=== PATIENT | male | born 1980 | race Two or more races ===

== ENCOUNTER 2017-01-18 10:54 | Day surgery (SDC) | payer BC ==
[2017-01-12 14:58] VITALS: BMI 20.9
[~2017-01-18 10:54] MED LIST: LACTATED RINGERS 1,000 ML IV SCH
[2017-01-18 12:19] VITALS: TEMP 97.7
[2017-01-18] MEDS ORDERED: LIDOCAINE 1% 20 ML VIAL (10MG/ML) FOR IV START INTRADERMA ONE (12:26)
[2017-01-18] MEDS ORDERED: PROPOFOL 10 MG/ML 20 ML VIAL IV ONE (13:19)
[2017-01-18] MEDS ORDERED: LIDOCAINE 1% INJ 10MG/ML (20 ML MDV) ONE (13:19)
--- NOTE | 2017-01-18 13:43 | P.PCN ---
Date of Procedure: 01/18/17 Preoperative Diagnosis: Postoperative Diagnosis: Procedure(s) Performed: Brief history: Patient is a pleasant 36-year-old white male, scheduled for an elective upper endoscopy as well as colonoscopy as a part of evaluation of anemia and long- standing history of Crohn's disease. He was diagnosed with Crohn's disease several years ago and has 2 small bowel resections the last one about 10 years ago and since then has remain in clinical remission. Recently has been having several bowel movements daily with in 6-8 loose to watery in consistency but no blood in the stool. He was diagnosed with lower ex immediately DVT 10 days ago and has been started on Lovenox. Procedure performed: Esophagogastroduodenoscopy with biopsy Colonoscopy with biopsy Preoperative diagnosis: Iron deficiency anemia History of Crohn's disease. Anesthesia: MAC Procedure: After informed consent was obtained from the patient was brought into the endoscopy unit and IV sedation was administered by anesthesia under continuous monitoring. Initially upper endoscopy was done. The Olympus GF 160 video endoscope was inserted inserted into the mouth and esophagus intubated without any difficulty and was gradually advanced into the stomach and duodenum and carefully examined. The bulb and second part of the duodenum appeared normal. The scope was then withdrawn into the stomach adequately insufflated with air and upon careful examination the antrum and mild gastritis and biopsies were done from this area. The body, cardia and fundus appeared normal. The scope was then withdrawn into the esophagus. The GE junction was located at 40 cm to the incisors. It appeared regular with no erythema erosions or ulcerations. Rest of the esophagus appeared normal. Patient tolerated the procedure well. At this time the patient continued to remain sedation. Initial digital rectal examination was normal. Olympus CF 160 video colonoscope was then inserted into the rectum and gradually advanced to the right colon without any difficulty with the colonic anastomosis wasn't sure that appeared very narrowed and inflamed. Biopsies were done from the anastomosis. The transverse colon, descending colon, sigmoid colon and rectum appeared normal. Retroflexion was performed in the rectum and no lesions were noted. Random biopsies were done from ascending and descending colon to rule out active colitis. Patient tolerated the procedure well. Impression: 1.Upper endoscopy revealed mild antral gastritis but no evidence of esophagitis or peptic ulcer disease 2.Colonoscopy revealed narrowing of the ileal colic anastomosis and the right colon with multiple superficial ulcerations consistent with active disease. The colon appeared normal. Recommendations: Findings of this examination were discussed with the patient as well as her family. He was advised to follow with the biopsy results. He will resume Lovenox today and he will be seen in the office in 2 weeks. Implants: Indications for Procedure: Operative Findings: Description of Procedure:
[2017-01-18 14:30] VITALS: BP 94/58; PULSE 64; RESP 18
== END 2017-01-18 15:03 | disposition home or self-care (01) ==
LOC: ORWHC2ENDO 10:54
PROVIDERS: ATTEND Internal Medicine Gastroenterology
DX: K29.50 Unspecified chronic gastritis without bleeding (principal); K51.90 Ulcerative colitis, unspecified, without complications; Z98.0 Intestinal bypass and anastomosis status; I65.22 Occlusion and stenosis of left carotid artery; J45.909 Unspecified asthma, uncomplicated; F17.200 Nicotine dependence, unspecified, uncomplicated; Z86.711 Personal history of pulmonary embolism; Z79.899 Other long term (current) drug therapy
CPT/HCPCS: 88305; 88342; 45380; 43239; J2001; J2704

== ENCOUNTER 2018-07-30 16:17 | Emergency (ER) | payer BC, OTHER ==
--- NOTE | 2018-07-30 17:41 | ED ---
Extremity Problem HPI - General Chief complaint: Extremity Problem,Nontraumatic Stated complaint: Possible blood clot Time Seen by Provider: 07/30/18 16:33 Source: patient, RN notes reviewed, old records reviewed Mode of arrival: ambulatory Limitations: no limitations - History of Present Illness MD Complaint: extremity pain (L) -: days(s) Location: left, lower extremity History of Same: Yes -: Yes myalgia, Yes arthralgia Radiation: none Severity scale (1-10): 6 Quality: aching Consistency: constant Improves with: nothing Worsens with: nothing Associated Symptoms: myalgias - Related Data Home Medications Medication Instructions Recorded Confirmed Albuterol Inhaler [Ventolin Hfa 2 puff INHALATION RT-DAILY PRN 07/30/18 07/30/18 Inhaler] Apixaban [Eliquis] 5 mg PO BID 07/30/18 07/30/18 Buprenorphine HCl/Naloxone HCl 1 film SL BID 07/30/18 07/30/18 [Suboxone 8 mg-2 mg Sl Film] Ensure 1 can PO BID 07/30/18 07/30/18 traZODone HCL 150 mg PO HS 07/30/18 07/30/18 Allergies Allergy/AdvReac Type Severity Reaction Status Date / Time No Known Allergies Allergy Verified 07/30/18 16:37 Review of Systems ROS Statement: Those systems with pertinent positive or pertinent negative responses have been documented in the HPI. ROS Other: All systems not noted in ROS Statement are negative. Past Medical History Past Medical History: Asthma, Deep Vein Thrombosis (DVT), Pulmonary Embolus (PE) Additional Past Medical History / Comment(s): low BP, crohns, diarrhea, recent blood clot in left side of neck and PE ans is on lovenox ([facility] for 4-5 days) and got several blood transfusion while inpt History of Any Multi-Drug Resistant Organisms: None Reported Past Surgical History: Bowel Resection Additional Past Surgical History / Comment(s): colonoscopy, abscess lower left abdomen- drainage, port for TPN/later removed. Past Anesthesia/Blood Transfusion Reactions: No Reported Reaction Past Psychological History: No Psychological Hx Reported Smoking Status: Current every day smoker Past Alcohol Use History: None Reported Past Drug Use History: Heroin - Past Family History Mother Family Medical History: No Reported History General Exam Limitations: no limitations General appearance: alert, in no apparent distress Head exam: Present: atraumatic, normocephalic, normal inspection Eye exam: Present: normal appearance, PERRL, EOMI. Absent: scleral icterus, conjunctival injection, periorbital swelling ENT exam: Present: normal exam, mucous membranes moist Neck exam: Present: normal inspection. Absent: tenderness, meningismus, lymphadenopathy Respiratory exam: Present: normal lung sounds bilaterally. Absent: respiratory distress, wheezes, rales, rhonchi, stridor Cardiovascular Exam: Present: regular rate, normal rhythm, normal heart sounds. Absent: systolic murmur, diastolic murmur, rubs, gallop, clicks GI/Abdominal exam: Present: soft, normal bowel sounds. Absent: distended, tenderness, guarding, rebound, rigid Extremities exam: Present: normal inspection, full ROM, normal capillary refill, other (LLE pasin edema). Absent: tenderness, pedal edema, joint swelling, calf tenderness Back exam: Present: normal inspection Neurological exam: Present: alert, oriented X3, CN II-XII intact Psychiatric exam: Present: normal affect, normal mood Skin exam: Present: warm, dry, intact, normal color. Absent: rash Course Vital Signs 07/30/18 07/30/18 16:21 19:28 Temperature 98.8 F 97.8 F Pulse Rate 100 79 Respiratory 20 18 Rate Blood Pressure 97/57 99/60 O2 Sat by Pulse 100 97 Oximetry Medical Decision Making - Lab Data Result diagrams: 07/30/18 18:43 07/30/18 18:43 Lab Results 07/30/18 07/30/18 07/30/18 Range/Units 18:43 18:43 18:43 WBC 7.0 (3.8-10.6) k/uL RBC 4.25 L (4.30-5.90) m/uL Hgb 7.4 L (13.0-17.5) gm/dL Hct 27.7 L (39.0-53.0) % MCV 65.1 L (80.0-100.0) fL MCH 17.5 L (25.0-35.0) pg MCHC 26.9 L (31.0-37.0) g/dL RDW 18.4 H (11.5-15.5) % Plt Count 338 (150-450) k/uL Neutrophils % 62 % Lymphocytes % 19 % Monocytes % 8 % Eosinophils % 9 % Basophils % 1 % Neutrophils # 4.3 (1.3-7.7) k/uL Lymphocytes # 1.3 (1.0-4.8) k/uL Monocytes # 0.6 (0-1.0) k/uL Eosinophils # 0.6 (0-0.7) k/uL Basophils # 0.0 (0-0.2) k/uL Hypochromasia Marked Anisocytosis Slight Microcytosis Marked PT 11.3 (9.0-12.0) sec INR 1.1 (<1.2) APTT 25.9 (22.0-30.0) sec D-Dimer 1.74 H (<0.60) mg/L FEU Sodium 135 L (137-145) mmol/L Potassium 4.4 (3.5-5.1) mmol/L Chloride 102 (98-107) mmol/L Carbon Dioxide 29 (22-30) mmol/L Anion Gap 4 mmol/L BUN 9 (9-20) mg/dL Creatinine 0.74 (0.66-1.25) mg/dL Est GFR (CKD-EPI)AfAm >90 (>60 ml/min/1.73 sqM) Est GFR (CKD-EPI)NonAf >90 (>60 ml/min/1.73 sqM) Glucose 87 (74-99) mg/dL Calcium 8.0 L (8.4-10.2) mg/dL Magnesium 2.1 (1.6-2.3) mg/dL Total Bilirubin 0.3 (0.2-1.3) mg/dL AST 17 (17-59) U/L ALT 23 (21-72) U/L Alkaline Phosphatase 69 (38-126) U/L Total Protein 5.4 L (6.3-8.2) g/dL Albumin 2.7 L (3.5-5.0) g/dL Disposition Clinical Impression: Deep vein thrombosis of lower extremity, Right leg DVT Disposition: HOME SELF-CARE Condition: Good Instructions (If sedation given, give patient instructions): Deep Vein Thrombosis (ED) Is patient prescribed a controlled substance at d/c from ED?: No Referrals: Chuck Talbot MD [Primary Care Provider] - 1-2 days
--- NOTE | 2018-07-30 17:47 | US ---
EXAMINATION TYPE: US venous doppler duplex LE RT DATE OF EXAM: 07/30/2018 5:26 PM COMPARISON: NONE CLINICAL HISTORY: Pain. Hx of DVT in right leg x 1 year ago. Patient is currently not on blood thinn ers. Swelling and redness. SIDE PERFORMED: Right TECHNIQUE: The lower extremity deep venous system is examined utilizing real time linear array sonog luz with graded compression, doppler sonography and color-flow sonography. VESSELS IMAGED: External Iliac Vein (EIV) Common Femoral Vein Deep Femoral Vein Greater Saphenous Vein * Femoral Vein Popliteal Vein Small Saphenous Vein * Proximal Calf Veins (* superficial vessels) Right Leg: Appears positive for DVT from CFV to Proximal calf vein areas. Visibile internal echoes seen within, compressions deferred. Thready flow seen in CFV. Dual vein seen in mid Femoral vein, no vascular flow seen within both veins. Positive for SVT in small saphenous vein. IMPRESSION: The exam shows evidence of acute and chronic deep venous thrombosis in the right femoral vein and popliteal vein.
[2018-07-30] MEDS ORDERED: SODIUM CHLORIDE 0.9% 1,000 ML IV STA (18:21)
[2018-07-30] MEDS ORDERED: APIXABAN 5 MG TAB PO STA (18:23)
[2018-07-30 19:04] LABS: ALT 23 U/L (21-72); AST 17 U/L (17-59); Albumin 2.7 g/dL (3.5-5.0); Alkaline Phosphatase 69 U/L (38-126); Anion Gap 4 mmol/L; Blood Urea Nitrogen 9 mg/dL (9-20); Carbon Dioxide 29 mmol/L (22-30); Chloride 102 mmol/L (98-107); Glucose 87 mg/dL (74-99); Magnesium 2.1 mg/dL (1.6-2.3); Potassium 4.4 mmol/L (3.5-5.1); Sodium 135 mmol/L (137-145); Total Bilirubin 0.3 mg/dL (0.2-1.3); Total Protein 5.4 g/dL (6.3-8.2)
[2018-07-30 19:05] LABS: Anisocytosis Slight; Basophils % (A) 1 %; Eosinophils # (A) 0.6 k/uL (0-0.7); Eosinophils % (A) 9 %; HCT 27.7 % (39.0-53.0); HGB 7.4 gm/dL (13.0-17.5); Hypochromasia Marked; Lymphocytes # (A) 1.3 k/uL (1.0-4.8); Lymphocytes % (A) 19 %; MCH 17.5 pg (25.0-35.0); MCHC 26.9 g/dL (31.0-37.0); MCV 65.1 fL (80.0-100.0); Mean Platelet Volume 5.6; Microcytosis Marked; Monocytes # (A) 0.6 k/uL (0-1.0); Monocytes % (A) 8 %; Neutrophils # (A) 4.3 k/uL (1.3-7.7); Neutrophils % (A) 62 %; Platelet Count 338 k/uL (150-450); RBC 4.25 m/uL (4.30-5.90); RDW 18.4 % (11.5-15.5)
[2018-07-30 19:09] LABS: INR 1.1 (<1.2); Partial Thromboplastin Time 25.9 sec (22.0-30.0); Prothrombin Time 11.3 sec (9.0-12.0)
[2018-07-30 19:29] VITALS: BP 99/60; PULSE 79; RESP 18; TEMP 97.8
[2018-07-30 19:35] LABS: D-Dimer 1.74 mg/L FEU (<0.60)
== END 2018-07-30 19:29 | disposition home or self-care (01) ==
LOC: EC 16:17
DX: I82.411 Acute embolism and thrombosis of right femoral vein (principal); I82.431 Acute embolism and thrombosis of right popliteal vein; R60.0 Localized edema; M79.605 Pain in left leg; J45.909 Unspecified asthma, uncomplicated; F17.200 Nicotine dependence, unspecified, uncomplicated; Z79.01 Long term (current) use of anticoagulants; Z79.891 Long term (current) use of opiate analgesic; Z79.899 Other long term (current) drug therapy; Z86.711 Personal history of pulmonary embolism
CPT/HCPCS: 36415; 80053; 83735; 85025; 85379; 85610; 85730; 96360; 99284

== ENCOUNTER 2018-10-31 12:42 | Inpatient (IN) | payer OTHER ==
--- NOTE | 2018-10-31 13:30 | ED ---
General Adult HPI - General Chief complaint: Recheck/Abnormal Lab/Rx Stated complaint: Edema Time Seen by Provider: 10/31/18 12:59 Source: patient, RN notes reviewed Mode of arrival: ambulatory Limitations: no limitations - History of Present Illness Initial comments: 38-year-old male presents emergency Department chief complaint of leg and abdominal swelling. Patient states it started last week or so states he returned to work and this is when it started. Patient states she's had swelling in the past though that has been related to prior DVT and his arm. Patient states he has History of Crohn's disease with associated anemia. Patient denies any prior liver disease. He does admit to IV drug use in which she's used on and off he was and recent treatment and states that his been tested for hepatitis which are negative. Patient denies any prior liver disease. He does admit to some shortness of breath with no associated fevers or chills. Patient denies any prior renal disease, recent transfusion, congestive heart failure or any known cardiac disease - Related Data Home Medications Medication Instructions Recorded Confirmed Albuterol Inhaler [Ventolin Hfa 2 puff INHALATION RT-DAILY PRN 07/30/18 10/31/18 Inhaler] Apixaban [Eliquis] 5 mg PO BID 07/30/18 10/31/18 Buprenorphine HCl/Naloxone HCl 1 film SL BID 07/30/18 10/31/18 [Suboxone 8 mg-2 mg Sl Film] traZODone HCL 150 mg PO HS 07/30/18 10/31/18 Cbd Oil 500 mg SL BID 10/31/18 10/31/18 Allergies Allergy/AdvReac Type Severity Reaction Status Date / Time No Known Allergies Allergy Verified 10/31/18 13:04 Review of Systems ROS Statement: Those systems with pertinent positive or pertinent negative responses have been documented in the HPI. ROS Other: All systems not noted in ROS Statement are negative. Past Medical History Past Medical History: Asthma, Deep Vein Thrombosis (DVT), Pulmonary Embolus (PE) Additional Past Medical History / Comment(s): low BP, crohns, diarrhea, recent blood clot in left side of neck and PE ans is on lovenox ([facility] for 4-5 days) and got several blood transfusion while inpt History of Any Multi-Drug Resistant Organisms: None Reported Past Surgical History: Bowel Resection Additional Past Surgical History / Comment(s): colonoscopy, abscess lower left abdomen- drainage, port for TPN/later removed. Past Anesthesia/Blood Transfusion Reactions: No Reported Reaction Past Psychological History: No Psychological Hx Reported Smoking Status: Current every day smoker Past Alcohol Use History: None Reported Past Drug Use History: Heroin - Past Family History Mother Family Medical History: No Reported History General Exam Limitations: no limitations General appearance: alert, in no apparent distress Head exam: Present: atraumatic, normocephalic, normal inspection Eye exam: Present: normal appearance, PERRL, EOMI. Absent: scleral icterus, conjunctival injection, periorbital swelling ENT exam: Present: normal exam, normal oropharynx, mucous membranes moist Neck exam: Present: normal inspection, full ROM. Absent: tenderness, meningismus, lymphadenopathy Respiratory exam: Present: rales. Absent: normal lung sounds bilaterally, respiratory distress, wheezes, rhonchi, stridor Cardiovascular Exam: Present: regular rate, normal rhythm, normal heart sounds. Absent: systolic murmur, diastolic murmur, rubs, gallop, clicks GI/Abdominal exam: Present: soft, distended, tenderness, normal bowel sounds. Absent: guarding, rebound, rigid Extremities exam: Present: pedal edema (Extensive pitting edema lower extremities 3+) Neurological exam: Present: alert, oriented X3, CN II-XII intact, reflexes normal. Absent: motor sensory deficit Skin exam: Present: warm, dry, intact, normal color. Absent: rash Course Vital Signs 10/31/18 10/31/18 12:48 13:40 Temperature 99.2 F Pulse Rate 92 Respiratory 18 18 Rate Blood Pressure 95/59 O2 Sat by Pulse 98 Oximetry Medical Decision Making - Lab Data Result diagrams: 10/31/18 13:30 10/31/18 13:30 Lab Results 10/31/18 10/31/18 10/31/18 Range/Units 13:30 13:30 13:30 WBC 5.7 (3.8-10.6) k/uL RBC 3.84 L (4.30-5.90) m/uL Hgb 6.4 L* (13.0-17.5) gm/dL Hct 24.8 L (39.0-53.0) % MCV 64.6 L (80.0-100.0) fL MCH 16.6 L (25.0-35.0) pg MCHC 25.8 L (31.0-37.0) g/dL RDW 19.2 H (11.5-15.5) % Plt Count 411 (150-450) k/uL Neutrophils % 82 % Lymphocytes % 10 % Monocytes % 5 % Eosinophils % 1 % Basophils % 1 % Neutrophils # 4.7 (1.3-7.7) k/uL Lymphocytes # 0.6 L (1.0-4.8) k/uL Monocytes # 0.3 (0-1.0) k/uL Eosinophils # 0.0 (0-0.7) k/uL Basophils # 0.0 (0-0.2) k/uL Hypochromasia Marked Poikilocytosis Slight Anisocytosis Slight Microcytosis Marked PT (9.0-12.0) sec INR (<1.2) APTT (22.0-30.0) sec Sodium 134 L (137-145) mmol/L Potassium 4.5 (3.5-5.1) mmol/L Chloride 101 (98-107) mmol/L Carbon Dioxide 30 (22-30) mmol/L Anion Gap 3 mmol/L BUN 10 (9-20) mg/dL Creatinine 0.77 (0.66-1.25) mg/dL Est GFR (CKD-EPI)AfAm >90 (>60 ml/min/1.73 sqM) Est GFR (CKD-EPI)NonAf >90 (>60 ml/min/1.73 sqM) Glucose 97 (74-99) mg/dL Plasma Lactic Acid Georges 0.9 (0.7-2.0) mmol/L Calcium 7.6 L (8.4-10.2) mg/dL Magnesium 2.2 (1.6-2.3) mg/dL Total Bilirubin 0.5 (0.2-1.3) mg/dL AST 26 (17-59) U/L ALT 23 (21-72) U/L Alkaline Phosphatase 82 (38-126) U/L Creatine Kinase 46 L (55-170) U/L NT-Pro-B Natriuret Pep pg/mL Total Protein 5.3 L (6.3-8.2) g/dL Albumin 2.3 L (3.5-5.0) g/dL Amylase 40 (30-110) U/L Lipase 40 (23-300) U/L Hepatitis A IgM Ab 10/31/18 10/31/18 10/31/18 Range/Units 13:30 13:30 13:45 WBC (3.8-10.6) k/uL RBC (4.30-5.90) m/uL Hgb (13.0-17.5) gm/dL Hct (39.0-53.0) % MCV (80.0-100.0) fL MCH (25.0-35.0) pg MCHC (31.0-37.0) g/dL RDW (11.5-15.5) % Plt Count (150-450) k/uL Neutrophils % % Lymphocytes % % Monocytes % % Eosinophils % % Basophils % % Neutrophils # (1.3-7.7) k/uL Lymphocytes # (1.0-4.8) k/uL Monocytes # (0-1.0) k/uL Eosinophils # (0-0.7) k/uL Basophils # (0-0.2) k/uL Hypochromasia Poikilocytosis Anisocytosis Microcytosis PT 12.0 (9.0-12.0) sec INR 1.2 H (<1.2) APTT 25.2 (22.0-30.0) sec Sodium (137-145) mmol/L Potassium (3.5-5.1) mmol/L Chloride (98-107) mmol/L Carbon Dioxide (22-30) mmol/L Anion Gap mmol/L BUN (9-20) mg/dL Creatinine (0.66-1.25) mg/dL Est GFR (CKD-EPI)AfAm (>60 ml/min/1.73 sqM) Est GFR (CKD-EPI)NonAf (>60 ml/min/1.73 sqM) Glucose (74-99) mg/dL Plasma Lactic Acid Georges (0.7-2.0) mmol/L Calcium (8.4-10.2) mg/dL Magnesium (1.6-2.3) mg/dL Total Bilirubin (0.2-1.3) mg/dL AST (17-59) U/L ALT (21-72) U/L Alkaline Phosphatase (38-126) U/L Creatine Kinase (55-170) U/L NT-Pro-B Natriuret Pep 231 pg/mL Total Protein (6.3-8.2) g/dL Albumin (3.5-5.0) g/dL Amylase (30-110) U/L Lipase (23-300) U/L Hepatitis A IgM Ab NEGATIVE Critical Care Time Critical Care Time: Yes Total Critical Care Time: 35 Critical Care Time: Total 35 minutes of critical care time were used to evaluate the patient, reviewed past medical history, discussed patient's history with family, physical exam and ordering of labs which included CBC, CMP, BMP, hepatitis panel, urinalysis and chest x-ray. Patient's found to have anemia of 6.4, 1 unit of blood was ordered. Patient has extensive swelling concerns for underlying malnutrition, hepatitis or congestive heart failure. Patient will be admitted for further evaluation. Disposition Clinical Impression: Anemia, Crohns disease, Edema, Ascites Disposition: ADMITTED IP TO THIS HOSP Condition: Fair Referrals: Chuck Talbot MD [Primary Care Provider] - 1-2 days
[2018-10-31 13:51] LABS: Anisocytosis Slight; Basophils % (A) 1 %; Eosinophils % (A) 1 %; HCT 24.8 % (39.0-53.0); Hypochromasia Marked; Lymphocytes # (A) 0.6 k/uL (1.0-4.8); Lymphocytes % (A) 10 %; MCH 16.6 pg (25.0-35.0); MCHC 25.8 g/dL (31.0-37.0); MCV 64.6 fL (80.0-100.0); Mean Platelet Volume 6.6; Microcytosis Marked; Monocytes # (A) 0.3 k/uL (0-1.0); Monocytes % (A) 5 %; Neutrophils # (A) 4.7 k/uL (1.3-7.7); Neutrophils % (A) 82 %; Platelet Count 411 k/uL (150-450); Poikilocytosis Slight; RBC 3.84 m/uL (4.30-5.90); RDW 19.2 % (11.5-15.5); WBC 5.7 k/uL (3.8-10.6)
[2018-10-31 13:53] LABS: HGB 6.4 gm/dL (13.0-17.5)
[2018-10-31 13:58] LABS: ALT 23 U/L (21-72); AST 26 U/L (17-59); African American GFR (CKD) >90 (>60 ml/min/1.73 sqM); Albumin 2.3 g/dL (3.5-5.0); Alkaline Phosphatase 82 U/L (38-126); Amylase 40 U/L (30-110); Anion Gap 3 mmol/L; Blood Urea Nitrogen 10 mg/dL (9-20); Calcium 7.6 mg/dL (8.4-10.2); Carbon Dioxide 30 mmol/L (22-30); Chloride 101 mmol/L (98-107); Creatine Kinase 46 U/L (55-170); Glucose 97 mg/dL (74-99); INR 1.2 (<1.2); Lipase 40 U/L (23-300); Magnesium 2.2 mg/dL (1.6-2.3); Partial Thromboplastin Time 25.2 sec (22.0-30.0); Potassium 4.5 mmol/L (3.5-5.1); Sodium 134 mmol/L (137-145); Total Bilirubin 0.5 mg/dL (0.2-1.3); Total Protein 5.3 g/dL (6.3-8.2)
--- NOTE | 2018-10-31 14:05 | XR ---
EXAMINATION TYPE: XR chest 2V DATE OF EXAM: 10/31/2018 COMPARISON: NONE TECHNIQUE: PA and lateral views submitted. HISTORY: Shortness of breath FINDINGS: The lungs are clear and there is no pneumothorax, pleural effusion, or focal pneumonia. Subsegmenta l linear consolidation likely in the basis of scar or atelectasis. No overt failure. Heart size gold l. IMPRESSION: 1. Bibasilar subsegmental consolidation likely in the basis of atelectasis or scar rather than pneumo corwin correlate clinically for confirmation.
[2018-10-31 14:33] LABS: Hepatitis A AB IgM Index 0.02; Hepatitis A Antibody IgM NEGATIVE
[2018-10-31] MEDS ORDERED: PANTOPRAZOLE 40 MG/10 ML VIAL IVP STA (14:44)
[2018-10-31] MEDS ORDERED: ONDANSETRON 4 MG/2 ML VIAL IVP PRN (14:59)
[2018-10-31] MEDS ORDERED: ACETAMINOPHEN TAB 325 MG TAB PO PRN (14:59)
[2018-10-31] MEDS ORDERED: NALOXONE 0.4 MG/ML 1 ML VIAL IV PRN (14:59)
--- NOTE | 2018-10-31 15:31 | CT ---
EXAMINATION TYPE: CT abdomen pelvis wo con DATE OF EXAM: 10/31/2018 COMPARISON: None HISTORY: 38-year-old male Swelling to abdomen and legs x couple weeks. CT DLP: 415.4 mGycm. Automated exposure control for dose reduction was used. TECHNIQUE: Contiguous axial scanning of the abdomen and pelvis without IV contrast. Coronal and sagit christnia reconstructions performed. FINDINGS: Heart normal size without pericardial effusion. Low density of the blood pool suggests underlying ane arpit. Prominent bands of atelectasis in the visualized lower lungs without pleural effusion. There is moderate to large abdominal pelvic ascites and diffuse anasarca-type change. There may be sl ightly nodular hepatic contour. No abnormal gallbladder distention. Exam limitations due to diffuse anasarca change, ascites, and lack of contrast. Suboptimal assessment of the adrenal glands. No gross abnormality of the pancreas. Spleen enlarged at 16.0 cm. Kidneys show no gross abnormality. No dilated small bowel or free air seen. There is evidence of prior bowel resection and anastomosis in the right lower quadrant. Circumferenti al wall thickening along the hepatic flecture, axial imaging before. Additional moderate circumferent ial wall thickening of the mid to distal sigmoid. Bladder nondistended. Bones: No osseous destructive process. Degenerative disc disease L5-S1. IMPRESSION: 1. Severe diffuse anasarca type changes as well as moderate to large abdominopelvic ascites. Further clinical evaluation and workup is recommended. 2. Possible slight contour nodularity of the liver raises the possibility of underlying cirrhosis. 3. Splenomegaly at 16.0 cm. 4. Segments of moderate circumferential wall thickening of the colon such as at the hepatic flexure and mid to distal sigmoid. In the setting of liver disease, this could be reactive to hypoalbuminemia . Otherwise, nonspecific colitis is suggested. Clinically correlate. 5. Low density of the blood pool can be seen in the setting of clinically significant anemia.
--- NOTE | 2018-10-31 15:33 | P.HPIM ---
History of Present Illness H&P Date: 10/31/18 Chief Complaint: Swelling abdominal distention diarrhea The patient is a 38-year-old male with a past medical history of thromboembolic disease, IV drug abuse with heroin, Crohn's disease reportedly previously in remission who presents to the ER via private vehicle with chief complaint of worsening swelling . Apparently the patient has been having gradual progressive worsening swelling over the last 2 weeks, he reports the swelling is worse in his lower extremities and abdomen. Over the last 3 days the patient has been increasingly fatigued and began having several episodes of bloody diarrhea over the last 3 days, denies any subjective fevers chills or night sweats. He reports poor appetite secondary to his abdominal distention. He denies any nausea and vomiting, denies any chest pain but reports some shortness of breath due to his abdominal distention. in the ED the patient had a comprehensive workup hemoglobin and hematocrit was 6.4 and 24.8 respectively, INR is 1.2 . Serum sodium 134, NT proBNP to 30 total protein 5.3, albumin 2.3 . Chest x-ray showed bibasilar subsegmental consolidation likely atelectasis or scar. Patient was noted to be hemodynamically stable and recommended for admission for possible GI bleed. Review of Systems Pertinent positives per HPI, all other review of systems are otherwise negative Past Medical History Past Medical History: Asthma, Deep Vein Thrombosis (DVT), Pulmonary Embolus (PE) Additional Past Medical History / Comment(s): low BP, crohns, diarrhea, recent blood clot in left side of neck and PE ans is on lovenox ([facility] for 4-5 days) and got several blood transfusion while inpt History of Any Multi-Drug Resistant Organisms: None Reported Past Surgical History: Bowel Resection Additional Past Surgical History / Comment(s): colonoscopy, abscess lower left abdomen- drainage, port for TPN/later removed. Past Anesthesia/Blood Transfusion Reactions: No Reported Reaction Past Psychological History: No Psychological Hx Reported Smoking Status: Current every day smoker Past Alcohol Use History: None Reported Past Drug Use History: Heroin - Past Family History Mother Family Medical History: No Reported History Medications and Allergies Home Medications Medication Instructions Recorded Confirmed Type Albuterol Inhaler [Ventolin Hfa 2 puff INHALATION RT-DAILY PRN 07/30/18 10/31/18 History Inhaler] Apixaban [Eliquis] 5 mg PO BID 07/30/18 10/31/18 History Buprenorphine HCl/Naloxone HCl 1 film SL BID 07/30/18 10/31/18 History [Suboxone 8 mg-2 mg Sl Film] traZODone HCL 150 mg PO HS 07/30/18 10/31/18 History Cbd Oil 500 mg SL BID 10/31/18 10/31/18 History Allergies Allergy/AdvReac Type Severity Reaction Status Date / Time No Known Allergies Allergy Verified 10/31/18 13:04 Physical Exam Vitals: Vital Signs Temp Pulse Resp BP Pulse Ox 10/31/18 13:40 18 10/31/18 12:48 99.2 F 92 18 95/59 98 Intake and Output 10/31/18 10/31/18 10/31/18 06:59 14:59 22:59 Other: Weight 65.136 kg Constitutional: No acute distress, conversant, pleasant, emaciated looking Eyes: Anicteric sclerae, moist conjunctiva, no lid-lag, PERRLA ENMT: NC/AT,Oropharynx clear, no erythema, exudates Neck:Supple, FROM, no masses, or JVD, No carotid bruits; No thyromegaly Lungs: Clear to auscultation, Clear to percussion, Normal respiratory effort, no accessory muscle use Cardiovascular: Heart regular in rate and rhythm, No murmurs, gallops, or rubs no peripheral edema Abdominal: Soft Nontender, moderately distended with, no guarding, no rebound or rigidity, Normoactive bowel sounds, No palpable mass, umbilical hernia noted Skin: Normal temperature, tone, texture, turgor, No induration No subcutaneous nodules, No rash, lesions, No ulcers Extremities:No digital cyanosis No clubbing, Pedal pulses intact and symm etrical Radial pulses intact and symmetrical Normal gait and station, No calf tenderness Psychiatric: Alert and oriented to person, place and time, Appropriate affect Intact judgement Neuro: Muscles Strength 5/5 in all 4 extremities, Sensation to light touch grossly present throughout, Cranial nerves II-XII grossly intact. No focal sensory deficits Results CBC & Chem 7: 10/31/18 13:30 10/31/18 13:30 Labs: Abnormal Lab Results - Last 24 Hours (Table) 10/31/18 10/31/18 10/31/18 Range/Units 13:30 13:30 13:30 RBC 3.84 L (4.30-5.90) m/uL Hgb 6.4 L* (13.0-17.5) gm/dL Hct 24.8 L (39.0-53.0) % MCV 64.6 L (80.0-100.0) fL MCH 16.6 L (25.0-35.0) pg MCHC 25.8 L (31.0-37.0) g/dL RDW 19.2 H (11.5-15.5) % Lymphocytes # 0.6 L (1.0-4.8) k/uL INR 1.2 H (<1.2) Sodium 134 L (137-145) mmol/L Calcium 7.6 L (8.4-10.2) mg/dL Creatine Kinase 46 L (55-170) U/L Total Protein 5.3 L (6.3-8.2) g/dL Albumin 2.3 L (3.5-5.0) g/dL Crossmatch 10/31/18 Range/Units 13:57 RBC (4.30-5.90) m/uL Hgb (13.0-17.5) gm/dL Hct (39.0-53.0) % MCV (80.0-100.0) fL MCH (25.0-35.0) pg MCHC (31.0-37.0) g/dL RDW (11.5-15.5) % Lymphocytes # (1.0-4.8) k/uL INR (<1.2) Sodium (137-145) mmol/L Calcium (8.4-10.2) mg/dL Creatine Kinase (55-170) U/L Total Protein (6.3-8.2) g/dL Albumin (3.5-5.0) g/dL Crossmatch See Detail Assessment and Plan (1) Microcytic anemia Current Visit: Yes Status: Acute Code(s): D50.9 - IRON DEFICIENCY ANEMIA, UNSPECIFIED SNOMED Code(s): 403070984 (2) Abdominal distention Current Visit: Yes Status: Acute Code(s): R14.0 - ABDOMINAL DISTENSION (GASEOUS) SNOMED Code(s): 70426922 (3) Crohns disease Current Visit: Yes Status: Acute Code(s): K50.90 - CROHN'S DISEASE, UNSPECIFIED, WITHOUT COMPLICATIONS SNOMED Code(s): 45383127 (4) Moderate protein-energy malnutrition Current Visit: Yes Status: Acute Code(s): E44.0 - MODERATE PROTEIN-CALORIE MALNUTRITION SNOMED Code(s): 533500808 (5) History of intravenous drug abuse Current Visit: Yes Status: Acute Code(s): F19.11 - OTHER PSYCHOACTIVE SUBSTANCE ABUSE, IN REMISSION SNOMED Code(s): 06536997663294054 Plan: The patient is admitted anticipated greater than 2 midnight stay with severe microcytic anemia presumably secondary to blood loss with concern for possible Crohn's flare after the patient presented with abdominal distention and bloody diarrhea. He'll be typed and crossed and transfused a unit of packed RBCs, CRP and a CT abdomen and pelvis have been ordered. If there is any indication of a flare we'll start the patient on systemic steroids pending GI consultation. UDS will be ordered. We'll continue his PPI therapy and also check iron studies. CODE STATUS: Full code Anticipated discharge: 1-2 days Discharge to: Home Prophylaxis: SCDs and PPI therapy
[2018-10-31 15:41] LABS: Amorphous Sediment,Urine Rare /hpf; Appearance,Urine Clear (Clear); Bilirubin,Urine 1+ (Negative); Blood,Urine Negative (Negative); Color,Urine Yellow; Glucose,Urine (UA) Negative (Negative); Ketones,Urine Negative (Negative); Leukocyte Esterase,Urine Negative (Negative); Mucus,Urine Moderate /hpf; Nitrite,Urine Negative (Negative); Protein,Urine 1+ (Negative); RBC,Urine <1 /hpf (0-5); Squamous Epithelial Cell,Urine <1 /hpf (0-4)
[2018-10-31 19:49] LABS: Hepatitis B Core IgM Non-Reactive (Non-Reactive)
[2018-10-31 20:11] LABS: Anisocytosis Moderate; Basophils % (A) 1 %; Eosinophils # (A) 0.1 k/uL (0-0.7); Eosinophils % (A) 1 %; HCT 26.7 % (39.0-53.0); HGB 7.3 gm/dL (13.0-17.5); Hypochromasia Marked; Lymphocytes # (A) 0.7 k/uL (1.0-4.8); Lymphocytes % (A) 13 %; MCH 18.1 pg (25.0-35.0); MCHC 27.2 g/dL (31.0-37.0); MCV 66.8 fL (80.0-100.0); Mean Platelet Volume 6.8; Microcytosis Marked; Monocytes # (A) 0.4 k/uL (0-1.0); Monocytes % (A) 8 %; Neutrophils # (A) 3.8 k/uL (1.3-7.7); Neutrophils % (A) 74 %; Platelet Count 370 k/uL (150-450); Poikilocytosis Marked; RDW 20.9 % (11.5-15.5); WBC 5.1 k/uL (3.8-10.6)
[2018-10-31 20:43] VITALS: BMI 22.4
[2018-10-31] MEDS: PANTOPRAZOLE 40 MG/10 ML VIAL IVP SCH (20:44)
[2018-10-31] MEDS ORDERED: ALBUTEROL NEBULIZED 2.5 MG/3 ML INHALATION PRN (21:02)
[2018-11-01 02:03] LABS: Urine Alcohol Negative (Negative); Urine Barbiturate Negative (Negative); Urine Cocaine Negative (Negative); Urine Methadone Negative (Negative); Urine Opiates Positive (Negative); Urine Phencyclidine Negative (Negative)
[2018-11-01 04:23] LABS: Iron Saturation 5.13 (15.00-50.00)
[2018-11-01 08:36] LABS: Anisocytosis Moderate; Basophils % (A) 1 %; Eosinophils # (A) 0.2 k/uL (0-0.7); Eosinophils % (A) 4 %; HCT 25.7 % (39.0-53.0); Hypochromasia Marked; Lymphocytes # (A) 0.9 k/uL (1.0-4.8); Lymphocytes % (A) 18 %; MCH 17.9 pg (25.0-35.0); MCHC 26.1 g/dL (31.0-37.0); MCV 68.5 fL (80.0-100.0); Mean Platelet Volume 6.7; Microcytosis Marked; Monocytes # (A) 0.5 k/uL (0-1.0); Monocytes % (A) 10 %; Neutrophils # (A) 3.1 k/uL (1.3-7.7); Neutrophils % (A) 64 %; Platelet Count 349 k/uL (150-450); Poikilocytosis Marked; RBC 3.76 m/uL (4.30-5.90); RDW 20.7 % (11.5-15.5); WBC 4.8 k/uL (3.8-10.6)
[2018-11-01] MEDS: PANTOPRAZOLE 40 MG/10 ML VIAL IVP SCH (08:40)
[2018-11-01 08:50] LABS: HGB 6.7 gm/dL (13.0-17.5)
[2018-11-01 09:07] LABS: ALT 21 U/L (21-72); AST 17 U/L (17-59); African American GFR (CKD) >90 (>60 ml/min/1.73 sqM); Albumin 1.8 g/dL (3.5-5.0); Alkaline Phosphatase 69 U/L (38-126); Anion Gap 2 mmol/L; Blood Urea Nitrogen 10 mg/dL (9-20); C Reactive Protein 74.2 mg/L (<10.0); Calcium 7.3 mg/dL (8.4-10.2); Carbon Dioxide 27 mmol/L (22-30); Chloride 103 mmol/L (98-107); Glucose 75 mg/dL (74-99); Potassium 4.6 mmol/L (3.5-5.1); Sodium 132 mmol/L (137-145); Total Bilirubin 0.3 mg/dL (0.2-1.3); Total Protein 4.4 g/dL (6.3-8.2)
[2018-11-01 10:30] LABS: Polychromasia Present
--- NOTE | 2018-11-01 16:13 | P.CONS ---
History of Present Illness - Reason for Consult Consult date: 11/01/18 Anemia Crohn's disease Requesting physician: Preet Cannon - Chief Complaint Lower leg swelling weakness - History of Present Illness 38-year-old gentleman with a history of juvenile Crohn's ileitis diagnosed at age 14 with 2 bowel resections, underlying iron deficiency anemia, intravenous drug abuse heroin, thromboembolic disease maintained on anticoagulation ELIQUIS (last dose 10/31) admitted with multiple complaints bilateral lower extremity edema, abdominal distention, weakness 1 month. Patient reports difficulty following up with his Crohn's disease secondary to insurance issues. He is honest reports recent heroin usage a week prior to admission. No history of alcoholism. Last bowel resection more than a decade ago. No maintenance medications for Crohn's. Last EGD colonoscopy screening January [address] Sutton with findings of mild antral gastritis but no evidence of peptic ulcer disease, colonoscopy revealed narrowing of the ileocolic anastomosis in the right colon with multiple superficial ulcerations consistent with active disease. Denies gross hematemesis hematochezia or melena. His overall appearance is cachectic with reported weight loss but cannot quantify. CT abdomen and pelvis moderate to large abdominal pelvic ascites with anasarca type changes. Slightly nodular hepatic contour. No abnormal gallbladder distention. Enlarged spleen 16 cm. Segments of moderate circumferential wall thickening of the colon such as the hepatic flexure mid to distal sigmoid. Admission hemoglobin 6.4 previously 7.4 in July 2018. Received 2 units of blood present hemoglobin is 6.7. MCV 68. Platelet 349. INR 1.2. Sodium 134. Potassium 4.5. BUN 10. Creatinine 0.7. Iron saturation 5%. Iron 8. TIBC 156. Ferritin 5. C-reactive protein 74.2. Albumin 1.8. LFTs within normal limits. Lipase 40. Amylase 40. No history of known liver disorders. Review of Systems Constitutional: Denies fever, chills, sweats, weight gain, reports weight loss. HEENT: Negative for migraines, blurred vision or loss, earaches, drainage, tinnitus, oral mucosal lesions, dysphagia, or odynophagia. Cardiac: Negative for chest pain, arrhythmias, or palpitation. Respiratory: Negative for shortness of breath, hemoptysis, cough, or sputum production. Gastrointestinal: See HPI for pertinent findings. Genitourinary: Negative for hematuria, urgency, frequency, polyuria, dysuria, or penile discharge. Musculoskeletal: Negative for muscle aches, swelling, arthritis, and arthralgias. Neurologic: Negative for stroke or TIA. Endocrine: Negative for thyroid problems. Skin: Negative for rash or itching. Psychiatric: Negative history for depression and anxiety Past Medical History Past Medical History: Asthma, Deep Vein Thrombosis (DVT), Pulmonary Embolus (PE) Additional Past Medical History / Comment(s): low BP, crohns, diarrhea, recent blood clot in left side of neck and PE ans is on lovenox ([facility] for 4-5 days) and got several blood transfusion while inpt History of Any Multi-Drug Resistant Organisms: None Reported Past Surgical History: Bowel Resection Additional Past Surgical History / Comment(s): colonoscopy, abscess lower left abdomen- drainage, port for TPN/later removed. Past Anesthesia/Blood Transfusion Reactions: No Reported Reaction Past Psychological History: No Psychological Hx Reported Smoking Status: Current every day smoker Past Alcohol Use History: None Reported Past Drug Use History: Heroin - Past Family History Mother Family Medical History: No Reported History Medications and Allergies Home Medications Medication Instructions Recorded Confirmed Type Albuterol Inhaler [Ventolin Hfa 2 puff INHALATION RT-DAILY PRN 07/30/18 10/31/18 History Inhaler] Apixaban [Eliquis] 5 mg PO BID 07/30/18 10/31/18 History Buprenorphine HCl/Naloxone HCl 1 film SL BID 07/30/18 10/31/18 History [Suboxone 8 mg-2 mg Sl Film] traZODone HCL 150 mg PO HS 07/30/18 10/31/18 History Cbd Oil 500 mg SL BID 10/31/18 10/31/18 History Allergies Allergy/AdvReac Type Severity Reaction Status Date / Time No Known Allergies Allergy Verified 10/31/18 13:04 Physical Exam Vitals: Vital Signs Temp Pulse Pulse Resp BP BP Pulse Ox 11/01/18 14:23 98.2 F 62 16 93/60 11/01/18 11:29 98.1 F 65 16 94/59 11/01/18 11:01 98.2 F 61 14 95/58 11/01/18 10:59 98.2 F 64 16 93/58 11/01/18 10:49 98.2 F 65 14 95/58 11/01/18 10:45 98.4 F 58 L 16 96/61 11/01/18 07:19 98.1 F 62 16 93/54 96 11/01/18 02:15 98.2 F 61 17 92/49 95 10/31/18 19:55 98.4 F 66 17 101/66 97 10/31/18 19:41 98.2 F 68 16 96 10/31/18 19:00 90/64 10/31/18 18:30 92/61 10/31/18 18:06 98.3 F 70 15 99/61 95 10/31/18 18:00 88/56 95 10/31/18 17:30 88/55 96 10/31/18 17:00 15 93/57 98 10/31/18 16:30 15 94/59 94 L 10/31/18 16:26 98.6 F 71 16 94/59 99 10/31/18 16:00 15 93/60 96 10/31/18 15:56 98.4 F 70 16 93/60 98 Intake and Output 11/01/18 11/01/18 11/01/18 06:59 14:59 22:59 Intake Total 480 180 Balance 480 180 Intake: Oral 480 180 Blood Product 0 Rc As-3 Unit 0 [id number] Other: # Voids 2 # Bowel Movements 1 General appearance: The patient is alert, oriented, in no acute distress. Cachectic appearance. HET: Head is normocephalic and atraumatic. Pupils are equal and reactive. Oropharynx is clear without lesions. Neck: Supple without lymphadenopathy. Trachea midline. Heart: S1 S2. Regular rate and rhythm. Lungs: No crackles or wheezes are heard. Abdomen: Soft, distended with ascites normal sounds. No peritoneal signs. No palpable organomegaly or masses. Extremities: +3 bilateral lower extremity edema Neurological: No focal deficits. Strength and sensation are grossly intact. Results CBC & Chem 7: 11/01/18 07:03 11/01/18 07:03 Labs: Abnormal Lab Results - Last 24 Hours (Table) 10/31/18 10/31/18 10/31/18 Range/Units 13:45 13:57 16:00 RBC (4.30-5.90) m/uL Hgb (13.0-17.5) gm/dL Hct (39.0-53.0) % MCV (80.0-100.0) fL MCH (25.0-35.0) pg MCHC (31.0-37.0) g/dL RDW (11.5-15.5) % Lymphocytes # (1.0-4.8) k/uL Sodium (137-145) mmol/L Calcium (8.4-10.2) mg/dL Iron 8 L (65-175) ug/dL TIBC 156 L (228-460) ug/dL Iron Saturation 5.13 L (15.00-50.00) Ferritin 5.0 L (22.0-322.0) ng/mL C-Reactive Protein (<10.0) mg/L Total Protein (6.3-8.2) g/dL Albumin (3.5-5.0) g/dL Urine Opiates Screen Positive H (Negative) ng/mL U Cannabinoids Screen Positive H (Negative) ng/mL Crossmatch See Detail 10/31/18 11/01/18 11/01/18 Range/Units 19:47 07:03 07:03 RBC 4.00 L 3.76 L (4.30-5.90) m/uL Hgb 7.3 L 6.7 L* (13.0-17.5) gm/dL Hct 26.7 L 25.7 L (39.0-53.0) % MCV 66.8 L 68.5 L (80.0-100.0) fL MCH 18.1 L 17.9 L (25.0-35.0) pg MCHC 27.2 L 26.1 L (31.0-37.0) g/dL RDW 20.9 H 20.7 H (11.5-15.5) % Lymphocytes # 0.7 L 0.9 L (1.0-4.8) k/uL Sodium 132 L (137-145) mmol/L Calcium 7.3 L (8.4-10.2) mg/dL Iron (65-175) ug/dL TIBC (228-460) ug/dL Iron Saturation (15.00-50.00) Ferritin (22.0-322.0) ng/mL C-Reactive Protein 74.2 H (<10.0) mg/L Total Protein 4.4 L (6.3-8.2) g/dL Albumin 1.8 L (3.5-5.0) g/dL Urine Opiates Screen (Negative) ng/mL U Cannabinoids Screen (Negative) ng/mL Crossmatch CT scan - abdomen: report reviewed (Dr. Still) Assessment and Plan (1) Crohns disease Narrative/Plan: 38-year-old gentleman with a history of juvenile Crohn's ileitis requiring 2 resections with underlying iron deficiency anemia and nutritional anemia, thromboembolic disease maintained on anticoagulation presents with exacerbation of Crohns disease worsening abdominal distention and lower extremity edema fatigue weakness with new onset of ascites and possible nodular contour liver per CT. Patient reports recent usage of IVDA heroin abuse 1 week prior to admission and history of poor follow-up regarding his Crohn's maintenance secondary to insurance issues. Current Visit: Yes Status: Acute Code(s): K50.90 - CROHN'S DISEASE, UNSPECIFIED, WITHOUT COMPLICATIONS SNOMED Code(s): 51429944 (2) Ascites Current Visit: Yes Status: Acute Code(s): R18.8 - OTHER ASCITES SNOMED Code(s): 493398022 (3) Iron deficiency anemia Current Visit: Yes Status: Acute Code(s): D50.9 - IRON DEFICIENCY ANEMIA, UNSPECIFIED SNOMED Code(s): 00748817 (4) Edema Current Visit: Yes Status: Acute Code(s): R60.9 - EDEMA, UNSPECIFIED SNOMED Code(s): 399689520 (5) History of intravenous drug abuse Current Visit: Yes Status: Acute Code(s): F19.11 - OTHER PSYCHOACTIVE SUBSTANCE ABUSE, IN REMISSION SNOMED Code(s): 83047026437148908 (6) H/O deep venous thrombosis Current Visit: Yes Status: Acute Code(s): Z86.718 - PERSONAL HISTORY OF OTHER VENOUS THROMBOSIS AND EMBOLISM SNOMED Code(s): 509029525 (7) Chronic anticoagulation Current Visit: Yes Status: Acute Code(s): Z79.01 - MCC (CURRENT) USE OF ANTICOAGULANTS SNOMED Code(s): 372152072 Plan: 1. Diagnostic therapeutic paracentesis with cytology however patient will need to be off of his anticoagulation we'll defer to IR recommendations. If patient is not able to proceed with paracentesis will advise diuretic management. 2. CBC monitoring blood transfusions as indicated. Ferrous sulfate 325 mg twice a day with meals. Presently no reports of active GI bleeding. 3. Full serologic workup for evaluation of possible chronic liver disease req uested. 4. Hepatitis testing nonreactive however recent IVDA usage of week ago will request hepatitis C quantitative measurement as well as HIV testing per patient request. 5. Inpatient endoscopic exams contingent on clinical course. CRP now and daily. IV Solumedrol 20 mg every 8 hours. 6. Regular diet. 7. Dietitian consultation. We'll check prealbumin. Folate. B12. Thank you for this kind referral and the opportunity to participate in the care of your patient. This consultation was discussed with Dr. Still. The impression and plan of care have been directed as dictated.
[2018-11-01] MEDS: PANTOPRAZOLE 40 MG TABLET PO SCH (18:27)
[2018-11-01] MEDS: FERROUS SULFATE 325 MG TAB PO SCH (18:27)
[2018-11-01] MEDS: traZODone HCL 50 MG TAB PO SCH (20:05)
[2018-11-01 21:18] LABS: Anisocytosis Moderate; HCT 28.7 % (39.0-53.0); HGB 7.8 gm/dL (13.0-17.5); Hypochromasia Marked; MCH 19.1 pg (25.0-35.0); MCHC 27.1 g/dL (31.0-37.0); MCV 70.5 fL (80.0-100.0); Mean Platelet Volume 6.6; Microcytosis Marked; Platelet Count 334 k/uL (150-450); Poikilocytosis Marked; RBC 4.07 m/uL (4.30-5.90); RDW 21.8 % (11.5-15.5); WBC 6.6 k/uL (3.8-10.6)
--- NOTE | 2018-11-01 23:22 | P.PN ---
Progress Note - Text Progress Note Date: 11/01/18 Presenting complaint: Abdominal and lower extremity edema Interval history: Patient with known Crohn's disease presenting with bloody stools. History of DVT in the past for which she's on Eliquis. Of late had noticed swelling of the abdomen and the lower extremity. Significant. Today-sitting up. So concerned about his abdominal lower extremity distention. GI was consulted. Have him on steroids. Has done IV heroin. Review of systems: Was done for constitutional, cardiovascular, GI, pulmonary. relevant finding as above Current medications are reviewed and include Protonix On examination: VITAL SIGNS: [98.1, 65, 16, 94 x 59] GENERAL APPEARANCE: Propped up in bed, tired appearing HEENT: Normal external appearance of nose and ear. Oral cavity normal EYES: Pupils equal. Conjunctiva pale. NECK: JVD not raised. Mass not palpable. RESPIRATORY: Respiratory effort normal. Lungs clear to auscultation. CARDIOVASCULAR: First and second sounds normal. Gross edema. ABDOMEN: Soft. Distended Liver and spleen not palpable. No tenderness. No mass palpable. PSYCHIATRY: Alert and oriented x3. Mood and affect normal. Assessment: -This is a patient of prior DVTs now presents with abdominal distention lower extremity edema and computed tomography scan of the abdomen has shown ascites and splenomegaly. Patient of course seems to have portal hypertension. My concern that there is more proximal DVT to include hepatic vein or portal vein thrombosis. -Crohn's disease with acute flareup -IV heroine use -Hypotension -Chronic nicotine dependence patient is sitting in a smoker -Acute severe blood loss anemia, symptomatic hemoglobin dropped to 6.7 this morning -Hyponatremia with hypervolemia Plan: GI was consulted of it that input. We'll order ultrasound of the abdomen to look for hepatic and portal vein thrombosis. If that doesn't give us answers may have to do an MRI/MRA. And nicotine patch. Blood transfusion was ordered
[2018-11-02 07:58] LABS: African American GFR (CKD) >90 (>60 ml/min/1.73 sqM); Anion Gap 1 mmol/L; Blood Urea Nitrogen 9 mg/dL (9-20); Calcium 7.4 mg/dL (8.4-10.2); Carbon Dioxide 29 mmol/L (22-30); Chloride 103 mmol/L (98-107); Glucose 89 mg/dL (74-99); Potassium 4.2 mmol/L (3.5-5.1); Sodium 133 mmol/L (137-145)
[2018-11-02 08:39] LABS: Anisocytosis Moderate; Basophils % (A) 0 %; Eosinophils # (A) 0.1 k/uL (0-0.7); Eosinophils % (A) 1 %; HCT 28.1 % (39.0-53.0); HGB 8.3 gm/dL (13.0-17.5); Hypochromasia Marked; Lymphocytes # (A) 0.7 k/uL (1.0-4.8); Lymphocytes % (A) 14 %; MCH 19.6 pg (25.0-35.0); MCHC 29.4 g/dL (31.0-37.0); MCV 66.5 fL (80.0-100.0); Mean Platelet Volume 7.5; Microcytosis Marked; Monocytes # (A) 0.3 k/uL (0-1.0); Monocytes % (A) 6 %; Neutrophils % (A) 76 %; Platelet Count 392 k/uL (150-450); Poikilocytosis Marked; RBC 4.23 m/uL (4.30-5.90); RDW 22.7 % (11.5-15.5); WBC 5.2 k/uL (3.8-10.6)
[2018-11-02] MEDS: PANTOPRAZOLE 40 MG TABLET PO SCH ×2 (09:16→17:30)
[2018-11-02] MEDS: FERROUS SULFATE 325 MG TAB PO SCH ×2 (09:25→17:30)
--- NOTE | 2018-11-02 10:01 | US ---
EXAMINATION TYPE: US abdomen complete DATE OF EXAM: 11/02/2018 COMPARISON: CT dated 10/31/2018 CLINICAL HISTORY: assess for hepatic/portal vein/IVC thrombosis. Ascites; blood clotting disorder EXAM MEASUREMENTS: Liver Length: 16.2 cm Gallbladder Wall: 0.4 cm CBD: 0.5 cm Spleen: 14.7 cm Right Kidney: 11.5 x 5.1 x 4.1 cm Left Kidney: 12.0 x 5.2 x 5.2 cm Pancreas: hyperechoic Liver: surrounded by ascites, cirrhotic morphology MPV: abnormally dilated as > 1.3cm; non occluding thrombus is noted at splenic/portal vein confluenc e and in MPV as internal echoes are noted with flow around wall echoes; PW Doppler and color flow are documented in Splenic Vein, MPV, Right PV and Left Portal Vein and flow in these vessels is appropri ate direction to liver; Hepatic Vein flow by color flow and PW Doppler is noted to IVC. Gallbladder: sludge is noted within gallbladder with abnormally thickened wall. The sludge appears s omewhat mobile. Evidence for sonographic Nolen's sign: yes CBD: wnl Spleen: enlarged with color flow present at hilum of Splenic Artery and Splenic Vein Right Kidney: No hydronephrosis or masses seen Left Kidney: No hydronephrosis or masses seen Upper IVC: wnl Abd Aorta: wnl Ascites is noted in all four abdominal quadrants with largest fluid pocket seen in RUQ = 11.6cm A/P a nd then RLQ = 8.2cm A/P. IMPRESSION: 1. Nonoccluding thrombus within the splenoportal confluence and main portal vein. There is also a cir rhotic morphology of the liver, abdominal ascites, sequela portal venous hypertension with splenomega ly, and positive sonographic Nolen sign. 2. Gallbladder wall thickening could be secondary to acute cholecystitis or the surrounding ascites a nd hepatocellular disease as the common bile duct is within normal limits. Tumefactive sludge is also present within the gallbladder. There is further concern for acute cholecystitis HIDA scan could be performed. A [place] level critical message alert has been initiated for Unruly Perrin MD via the [employer] Critical Results System on 11/02/2018 9:58 AM. This message alert has been sent to Unruly Perrin MD via the preferences provided by the clinician for the receipt of Radiology Critical Findings. [facility] ID [id number].
[2018-11-02] MEDS: LORazepam 2 MG/ML INJ IV PRN ×2 (12:27→22:12)
[2018-11-02] MEDS ORDERED: HEPARIN SODIUM,PORCINE 5,000 UNIT/ML 1 ML VIAL IV PRN (13:27)
[2018-11-02] MEDS ORDERED: HEPARIN SODIUM,PORCINE 5,000 UNIT/ML 1 ML VIAL IV ONE (13:27)
[2018-11-02] MEDS ORDERED: HEPARIN SOD,PORK IN 0.45% NACL 25,000 UNIT in 0.45% NACL 1 250ML.BAG IV SCH (13:30)
--- NOTE | 2018-11-02 14:09 | US ---
Therapeutic paracentesis. DATE OF EXAM: 11/02/2018 CLINICAL HISTORY: Ascites The procedure was discussed with the patient. The risks, complications, benefits, and alternatives we re discussed and any questions were answered. Informed consent was obtained. Patient noted he has bee n taking his blood thinner and has not discontinued them. Procedure was deferred. IMPRESSION: Discontinued procedure due to the patient currently on blood thinning medication which is a contraind ication to the procedure.
[2018-11-02 14:14] LABS: Anisocytosis Moderate; Basophils % (A) 1 %; Eosinophils % (A) 0 %; HCT 35.4 % (39.0-53.0); HGB 9.5 gm/dL (13.0-17.5); Hypochromasia Marked; Lymphocytes # (A) 0.9 k/uL (1.0-4.8); Lymphocytes % (A) 11 %; MCHC 26.9 g/dL (31.0-37.0); MCV 70.4 fL (80.0-100.0); Mean Platelet Volume 6.8; Microcytosis Marked; Monocytes # (A) 0.4 k/uL (0-1.0); Monocytes % (A) 5 %; Neutrophils # (A) 6.7 k/uL (1.3-7.7); Neutrophils % (A) 81 %; Platelet Count 415 k/uL (150-450); Poikilocytosis Marked; RBC 5.03 m/uL (4.30-5.90); RDW 22.3 % (11.5-15.5); WBC 8.2 k/uL (3.8-10.6)
[2018-11-02 14:25] LABS: Partial Thromboplastin Time 24.4 sec (22.0-30.0)
[2018-11-02] MEDS: methylPREDNISolone SOD SUCCI 40 MG/ML 1 ML VIAL IV SCH (15:34)
--- NOTE | 2018-11-02 22:02 | P.PN ---
Progress Note - Text Progress Note Date: 11/02/18 Presenting complaint: Abdominal and lower extremity edema Interval history: Patient with known Crohn's disease presenting with bloody stools. History of DVT in the past for which she's on Eliquis. Of late had noticed swelling of the abdomen and the lower extremity. Significant. Today-laying in bed. Somewhat anxious. States she is having some heroin withdrawals. Requesting Ativan. Did get blood transfusion yesterday Review of systems: Was done for constitutional, cardiovascular, GI, pulmonary. relevant finding as above Current medications are reviewed and include Protonix, and IV Solu-Medrol On examination: VITAL SIGNS: [98.3, 72, 16, 1 once a 56, 96% room air] GENERAL APPEARANCE: Laying in bed anxious appearing HEENT: Normal external appearance of nose and ear. Oral cavity normal EYES: Pupils equal. Conjunctiva pale. NECK: JVD not raised. Mass not palpable. RESPIRATORY: Respiratory effort normal. Lungs clear to auscultation. CARDIOVASCULAR: First and second sounds normal. Gross edema. ABDOMEN: Soft. Distended Liver and spleen not palpable. No tenderness. No mass palpable. PSYCHIATRY: Alert and oriented x3. Mood and affect anxious Investigations reviewed in the clinical context: Doppler ultrasound of the abdomen showing incomplete occlusion at the junction of the splenic and portal vein. Ascites is present.. White count 5.2, hemoglobin 8.3, platelets 392, sodium 133 Assessment: -Acute DVT at the junction of the splenic and portal vein incomplete. -Crohn's disease with acute flareup -IV heroine use -Hypotension -Chronic nicotine dependence patient is sitting in a smoker -Acute severe blood loss anemia, GI bleeds, followed by blood transfusion -Hyponatremia with hypervolemia -Acute heroine withdrawal. -Anxiety not otherwise specified Plan: Had a lengthy discussion with Dr. tha mejia from GI. After discussion it was decided to put the patient on IV heparin. Will check at the patient has been compliant with his Eliquis. Other medication treatment plan is to continue. Did tell the patient that if things didn't improve he may have to be transferred to a higher level of care. 4 anxiety we'll add Ativan-. If need be after had Catapres.. A total of 40 minutes was spent today with over 25 minutes of discussion.
[2018-11-02] MEDS: traZODone HCL 50 MG TAB PO SCH (22:13)
[2018-11-03] MEDS: methylPREDNISolone SOD SUCCI 40 MG/ML 1 ML VIAL IV SCH ×2 (02:23→07:21)
--- NOTE | 2018-11-03 02:24 | P.PN ---
Subjective Progress Note Date: 11/02/18 Principal diagnosis: Portal vein thrombosis, abdominal distention with ascites, iron deficiency anemia, Crohn's disease Patient lying in bed reporting abdominal discomfort secondary to distention and ascites. Tolerating diet was oral intake is decreased overall. Blood per rect um reported. Objective - Vital Signs Vital signs: Vital Signs Temp 97.4 F L 11/02/18 20:23 Pulse 55 L 11/02/18 20:23 Resp 17 11/02/18 20:23 BP 93/57 11/02/18 20:23 Pulse Ox 98 11/02/18 20:23 Intake & Output 11/02/18 11/02/18 11/03/18 06:59 18:59 06:59 Intake Total 53.279 Balance 53.279 Intake: Intake, IV Titration 53.279 Amount Heparin Sod,Pork in 0.45% 53.279 NaCl 25,000 unit In 0.45 % NaCl 1 250ml.bag @ 12 UNITS/KG/HR 7.816 mls/hr IV .Q24H [facility] Rx#: [id number] Other: # Voids 1 3 1 - Exam On physical examination, patient appears comfortable in no apparent distress. HEAD: Normocephalic, atraumatic. EYES: No scleral icterus. No conjunctival injection. MOUTH: No lesions, tongue midline. NECK: Trachea midline, no gross abnormalities. CHEST: Decreased air entry bilaterally HEART: Regular rate and rhythm. ABDOMEN: Soft, distended with positive fluid with. Bowel sounds are positive. No organomegaly. No guarding or rigidity. SKIN: No no jaundice. NEUROLOGIC: Alert and oriented x3. No focal deficits. - Labs CBC & Chem 7: 11/02/18 13:56 11/02/18 07:19 Labs: Abnormal Lab Results - Last 24 Hours (Table) 11/01/18 11/02/18 11/02/18 Range/Units 07:03 07:19 07:19 RBC 4.23 L (4.30-5.90) m/uL Hgb 8.3 L (13.0-17.5) gm/dL Hct 28.1 L (39.0-53.0) % MCV 66.5 L (80.0-100.0) fL MCH 19.6 L (25.0-35.0) pg MCHC 29.4 L (31.0-37.0) g/dL RDW 22.7 H (11.5-15.5) % Lymphocytes # 0.7 L (1.0-4.8) k/uL APTT (22.0-30.0) sec Sodium 133 L (137-145) mmol/L Calcium 7.4 L (8.4-10.2) mg/dL Prealbumin <5.0 L (18.0-42.0) mg/dL 11/02/18 11/02/18 Range/Units 13:56 21:12 RBC (4.30-5.90) m/uL Hgb 9.5 L (13.0-17.5) gm/dL Hct 35.4 L (39.0-53.0) % MCV 70.4 L (80.0-100.0) fL MCH 19.0 L (25.0-35.0) pg MCHC 26.9 L (31.0-37.0) g/dL RDW 22.3 H (11.5-15.5) % Lymphocytes # 0.9 L (1.0-4.8) k/uL APTT 30.6 H (22.0-30.0) sec Sodium (137-145) mmol/L Calcium (8.4-10.2) mg/dL Prealbumin (18.0-42.0) mg/dL Assessment and Plan (1) Crohns disease Narrative/Plan: 38-year-old gentleman with a history of juvenile Crohn's ileitis requiring 2 resections with underlying iron deficiency anemia and nutritional anemia, thromboembolic disease maintained on anticoagulation presents with exacerbation of Crohns disease worsening abdominal distention and lower extremity edema fatigue weakness with new onset of ascites and possible nodular contour liver per CT. Patient reports recent usage of IVDA heroin abuse 1 week prior to admission and history of poor follow-up regarding his Crohn's maintenance secondary to insurance issues. Current Visit: Yes Status: Acute Code(s): K50.90 - CROHN'S DISEASE, UNSPECIFIED, WITHOUT COMPLICATIONS SNOMED Code(s): 62239389 (2) Abdominal distention Current Visit: Yes Status: Acute Code(s): R14.0 - ABDOMINAL DISTENSION (GASEOUS) SNOMED Code(s): 96268320 (3) Ascites Current Visit: Yes Status: Acute Code(s): R18.8 - OTHER ASCITES SNOMED Co de(s): 529774670 (4) Iron deficiency anemia Current Visit: Yes Status: Acute Code(s): D50.9 - IRON DEFICIENCY ANEMIA, UNSPECIFIED SNOMED Code(s): 28120901 Plan: Supportive care Okay for diet Dietary consult placed Continue to monitor CBC and transfuse as needed Ferrous sulfate 325 mg twice daily ordered Serologic workup for underlying liver disease has been negative to date including ceruloplasmin, iron studies, MOISES, viral hepatitis study, alpha-1 antitrypsin Continue IV Solu-Medrol 20 mg every 8 hours Patient would benefit from paracentesis for both diagnostic and therapeutic purposes with fluid studies to determine etiology of the ascites We'll initiate Lasix therapy at this time and titrate diuretics Thank you for allowing us to participate in the care of the patient we will continue to follow
[2018-11-03 03:15] LABS: HIV 1 AB Non-Reactive (Non-Reactive); HIV AB P24 Non-Reactive (Non-Reactive); HIV P24 AG Non-Reactive (Non-Reactive)
[2018-11-03 04:04] LABS: Anisocytosis Moderate; Basophils % (A) 0 %; Eosinophils % (A) 0 %; HCT 27.9 % (39.0-53.0); Hypochromasia Marked; Lymphocytes # (A) 0.5 k/uL (1.0-4.8); Lymphocytes % (A) 4 %; MCH 18.7 pg (25.0-35.0); MCHC 27.8 g/dL (31.0-37.0); MCV 67.1 fL (80.0-100.0); Mean Platelet Volume 6.2; Microcytosis Marked; Monocytes # (A) 0.5 k/uL (0-1.0); Monocytes % (A) 4 %; Neutrophils # (A) 11.1 k/uL (1.3-7.7); Neutrophils % (A) 90 %; Platelet Count 343 k/uL (150-450); Poikilocytosis Marked; RBC 4.16 m/uL (4.30-5.90); RDW 23.6 % (11.5-15.5); WBC 12.3 k/uL (3.8-10.6)
[2018-11-03 04:12] LABS: African American GFR (CKD) >90 (>60 ml/min/1.73 sqM); Anion Gap 3 mmol/L; Blood Urea Nitrogen 6 mg/dL (9-20); Calcium 7.2 mg/dL (8.4-10.2); Carbon Dioxide 26 mmol/L (22-30); Chloride 103 mmol/L (98-107); Glucose 101 mg/dL (74-99); Potassium 3.5 mmol/L (3.5-5.1); Sodium 132 mmol/L (137-145)
[2018-11-03 04:39] LABS: HGB 7.8 gm/dL (13.0-17.5)
[2018-11-03] MEDS: LORazepam 2 MG/ML INJ IV PRN (07:21)
[2018-11-03] MEDS: FERROUS SULFATE 325 MG TAB PO SCH (07:21)
[2018-11-03] MEDS: PANTOPRAZOLE 40 MG TABLET PO SCH (07:21)
[2018-11-03 07:29] VITALS: BP 96/52; PULSE 67; RESP 16; TEMP 98
[2018-11-03] MEDS ORDERED: NICOTINE POLACRILEX 2 MG GUM BUCCAL PRN (08:06)
[2018-11-03] MEDS ORDERED: LORazepam 2 MG/ML INJ IV PRN (08:07)
[2018-11-03] MEDS: NICOTINE 21MG/24HR PATCH TRANSDERM SCH ×2 (08:42→08:43)
[2018-11-03] MEDS ORDERED: SUBOXONE SL SCH (09:00)
[2018-11-03] MEDS ORDERED: FUROSEMIDE 10 MG/ML 4 ML VIAL IV SCH (09:00)
[2018-11-03 14:35] LABS: LOG HCV IU/mL <1.08 (<1.08)
--- NOTE | 2018-11-04 00:30 | P.DS ---
Providers Date of admission: 10/31/18 15:01 Expected date of discharge: 11/03/18 (Left AMA) Attending physician: Unruly Perrin Consults: 10/31/18 14:43 Consult Physician Urgent Consulting Provider: [facility] Still Consult Reason/Comments: Anemia, Crohn's disease Do you want consulting provider notified?: Yes Primary care physician: Chuck Talbot Hospital Course: Discharge diagnoses: -Acute DVT at the junction of the splenic and portal vein incomplete. -Crohn's disease with acute flareup -IV heroine use -Hypotension -Chronic nicotine dependence patient is sitting in a smoker -Acute severe blood loss anemia, GI bleeds, followed by blood transfusion -Hyponatremia with hypervolemia -Acute heroine withdrawal. -Anxiety not otherwise specified Hospital course: This patient presented with swelling of the abdomen and lower extremity. And what is felt also be of some flareup of Crohn's disease. Doppler ultrasound of the abdomen did show DVT not complete at the junction of the splenic and portal vein. Discussed with Dr. almazan. Patient is put on IV heparin. Patient is having some heroine withdrawal. Was given Ativan. Some beta kylee. Patient also was caught smoking in the bathroom. Patient given a nicotine patch and nicotine gum. Patient decided to leave AMA. Patient Condition at Discharge: Undetermined Plan - Discharge Summary New Discharge Prescriptions: No Action traZODone HCL 150 mg PO HS Buprenorphine HCl/Naloxone HCl [Suboxone 8 mg-2 mg Sl Film] 1 film SL BID Albuterol Inhaler [Ventolin Hfa Inhaler] 2 puff INHALATION RT-DAILY PRN PRN Reason: Shortness Of Breath Ranitidine HCl [Zantac] 75 mg PO HS PRN PRN Reason: Heartburn Apixaban [Eliquis] 5 mg PO BID 30 Days #60 tab Spironolactone 50 mg PO DAILY 30 Days #30 tablet Discharge Medication List Albuterol Inhaler [Ventolin Hfa Inhaler] 2 puff INHALATION RT-DAILY PRN 07/30/18 [History] Buprenorphine HCl/Naloxone HCl [Suboxone 8 mg-2 mg Sl Film] 1 film SL BID 07/30/18 [History] traZODone HCL 150 mg PO HS 07/30/18 [History] Apixaban [Eliquis] 5 mg PO BID 30 Days #60 tab 11/03/18 [Rx] Ranitidine HCl [Zantac] 75 mg PO HS PRN 11/03/18 [History] Spironolactone 50 mg PO DAILY 30 Days #30 tablet 11/03/18 [Rx] Follow up Appointment(s)/Referral(s): Chuck Talbot MD [Primary Care Provider] - 1-2 days Activity/Diet/Wound Care/Special Instructions: left AMA Discharge Disposition: Left Against Medical Advice
[2018-11-05 14:17] LABS: Liver/Kidney Microsome Antibod 0.9 UNITS (<=20); Smooth Muscle Antibody 6 UNITS (<20)
== END 2018-11-03 09:19 | disposition left against medical advice (07) | DRG 385 ==
LOC: EC 12:42 → 4MS4W 15:01 → 4SSUR 16:40
PROVIDERS: ADMIT Hospitalist; ATTEND Hospitalist
PROC: 30233N1 Transfusion of Nonautologous Red Blood Cells into Peripheral Vein, Percutaneous Approach (ICD-10-PCS; principal; 2018-10-31)
DX: K50.011 Crohn's disease of small intestine with rectal bleeding (principal); I81 Portal vein thrombosis; J98.11 Atelectasis; D62 Acute posthemorrhagic anemia; E44.0 Moderate protein-calorie malnutrition; E87.1 Hypo-osmolality and hyponatremia; K76.6 Portal hypertension; R18.8 Other ascites; R64 Cachexia; F11.23 Opioid dependence with withdrawal; F41.9 Anxiety disorder, unspecified; J45.909 Unspecified asthma, uncomplicated; D50.9 Iron deficiency anemia, unspecified; E87.70 Fluid overload, unspecified; I95.9 Hypotension, unspecified; F17.200 Nicotine dependence, unspecified, uncomplicated; Z68.22 Body mass index [BMI] 22.0-22.9, adult; Z79.01 Long term (current) use of anticoagulants; Z86.711 Personal history of pulmonary embolism; Z86.718 Personal history of other venous thrombosis and embolism
CPT/HCPCS: 36415; 71046; 74176; 76700; 76705; 80048; 80053; 80074; 80306; 81001; 82103; 82105; 82150; 82390; 82550; 82607; 82728; 82746; 83516; 83540; 83550; 83605; 83690; 83735; 83880; 84134; 85025; 85027; 85610; 85730; 86038; 86140; 86376; 86850; 86900; 86901; 86920; 87390; 87522; 93975; 96374; 99291

== ENCOUNTER 2018-11-03 12:15 | Emergency (ER) | payer OTHER ==
[2018-11-03 12:40] VITALS: RESP 18
--- NOTE | 2018-11-03 14:14 | ED ---
Recheck HPI - General Chief Complaint: Recheck/Abnormal Lab/Rx Stated Complaint: blood clots on liver-revisit Time Seen by Provider: 11/03/18 13:07 Source: patient Mode of arrival: ambulatory Limitations: no limitations - History of Present Illness Initial Comments: 38-year-old male with history of IV drug use, portal vein ecchymosis, ascites presenting today for chief complaint of return after leaving AMA. Patient states he still has some abdominal discomfort. He states he has been a little tired but other than that he has no complaints. Remaining review of systems negative, patient denies any recent fever, chills, shortness of breath, chest pa in, back pain, nausea or vomiting, numbness or tingling, dysuria or hematuria, constipation or diarrhea, headaches or visual changes, or any other complaints. - Related Data Home Medications Medication Instructions Recorded Confirmed Albuterol Inhaler [Ventolin Hfa 2 puff INHALATION RT-DAILY PRN 07/30/18 11/03/18 Inhaler] Buprenorphine HCl/Naloxone HCl 1 film SL BID 07/30/18 11/03/18 [Suboxone 8 mg-2 mg Sl Film] traZODone HCL 150 mg PO HS 07/30/18 11/03/18 Ranitidine HCl [Zantac] 75 mg PO HS PRN 11/03/18 11/03/18 Previous Rx's Medication Instructions Recorded Apixaban [Eliquis] 5 mg PO BID 30 Days #60 tab 11/03/18 Spironolactone 50 mg PO DAILY 30 Days #30 tablet 11/03/18 Allergies Allergy/AdvReac Type Severity Reaction Status Date / Time No Known Allergies Allergy Verified 11/03/18 14:25 Review of Systems ROS Statement: Those systems with pertinent positive or pertinent negative responses have been documented in the HPI. ROS Other: All systems not noted in ROS Statement are negative. Past Medical History Past Medical History: Asthma, Deep Vein Thrombosis (DVT), Pulmonary Embolus (PE) Additional Past Medical History / Comment(s): low BP, crohns, diarrhea, recent blood clot in left side of neck and PE ans is on lovenox ([facility] for 4-5 days) and got several blood transfusion while inpt History of Any Multi-Drug Resistant Organisms: None Reported Past Surgical History: Bowel Resection Additional Past Surgical History / Comment(s): colonoscopy, abscess lower left abdomen- drainage, port for TPN/later removed. Past Anesthesia/Blood Transfusion Reactions: No Reported Reaction Past Psychological History: No Psychological Hx Reported Smoking Status: Current every day smoker Past Alcohol Use History: None Reported Past Drug Use History: None Reported, Heroin - Past Family History Mother Family Medical History: No Reported History General Exam - General Exam Comments Initial Comments: General: The patient is awake and alert, in no distress Eye: Pupils are equal, round and reactive to light, extra-ocular movements are intact. No nystagmus. There is normal conjunctiva bilaterally. No signs of icterus. Ears, nose, mouth and throat: There are moist mucous membranes and no oral lesions. Neck: The neck is supple, there is no tenderness or JVD. Cardiovascular: There is a regular rate and rhythm. No murmur, rub or gallop is appreciated. Respiratory: Lungs are clear to auscultation, respirations are non-labored, breath sounds are equal. No wheezes, stridor, rales, or rhonchi. Gastrointestinal: Soft, distended, non-tender abdomen without masses or organomegaly noted. There is no rebound or guarding present. No CVA tenderness. Bowel sounds are unremarkable. Musculoskeletal: Normal ROM, no tenderness. Strength 5/5. Sensation intact. Pulses equal bilaterally 2+. Neurological: A&O x 3. CN II-XII intact, There are no obvious motor or sensory deficits. Coordination appears grossly intact. Speech is normal. Skin: Skin is warm and dry and no rashes or lesions are noted. Psychiatric: Cooperative, appropriate mood & affect, normal judgment. Limitations: no limitations Course Vital Signs 11/03/18 11/03/18 11/03/18 12:35 15:42 17:04 Temperature 98.2 F 97.3 F L Pulse Rate 85 54 L 55 L Respiratory 18 18 18 Rate Blood Pressure 96/59 90/69 94/67 O2 Sat by Pulse 98 98 98 Oximetry Medical Decision Making - Medical Decision Making 38-year-old male presenting for possible readmission. I discussed the case with attending provider Dr.. Alonso, he contacted Dr. Perrin who states he was going to discharge patient anyways and recommended discharge home from the after discussing laboratory studies and VS. He did not accept admission. He recommended outpatient eliquis with spironolactone. We contacted Dr. Parmar discussing case to see if he was comfortable with discharge, he stated he will f/u with patient in office for paracentesis. Patient is afebrile. He is agreeable with discharge. Given previous admitting providers/GI recommendations, patient was discharged home. Patient HgB, BP, all appear upon chart review consistent since 07/2018. Troponin [facility] including increasing abdominal pain fevers were discussed at length the patient who verbalizes understanding. Patient was discharged appearing well - Lab Data Result diagrams: 11/03/18 14:30 11/03/18 14:30 Lab Results 11/03/18 11/03/18 11/03/18 Range/Units 14:30 14:30 15:35 WBC 9.8 (3.8-10.6) k/uL RBC 4.21 L (4.30-5.90) m/uL Hgb 8.0 L (13.0-17.5) gm/dL Hct 28.5 L (39.0-53.0) % MCV 67.6 L (80.0-100.0) fL MCH 19.0 L (25.0-35.0) pg MCHC 28.0 L (31.0-37.0) g/dL RDW 23.6 H (11.5-15.5) % Plt Count 330 (150-450) k/uL Neutrophils % 88 % Lymphocytes % 7 % Monocytes % 3 % Eosinophils % 1 % Basophils % 0 % Neutrophils # 8.6 H (1.3-7.7) k/uL Lymphocytes # 0.7 L (1.0-4.8) k/uL Monocytes # 0.3 (0-1.0) k/uL Eosinophils # 0.1 (0-0.7) k/uL Basophils # 0.0 (0-0.2) k/uL Hypochromasia Marked Poikilocytosis Marked Anisocytosis Moderate Microcytosis Marked PT 12.1 H (9.0-12.0) sec INR 1.2 H (<1.2) APTT 20.9 L (22.0-30.0) sec Sodium 133 L (137-145) mmol/L Potassium 4.1 (3.5-5.1) mmol/L Chloride 105 (98-107) mmol/L Carbon Dioxide 26 (22-30) mmol/L Anion Gap 2 mmol/L BUN 6 L (9-20) mg/dL Creatinine 0.67 (0.66-1.25) mg/dL Est GFR (CKD-EPI)AfAm >90 (>60 ml/min/1.73 sqM) Est GFR (CKD-EPI)NonAf >90 (>60 ml/min/1.73 sqM) Glucose 100 H (74-99) mg/dL Calcium 7.4 L (8.4-10.2) mg/dL Total Bilirubin 0.3 (0.2-1.3) mg/dL AST 16 L (17-59) U/L ALT 22 (21-72) U/L Alkaline Phosphatase 68 (38-126) U/L Total Protein 4.6 L (6.3-8.2) g/dL Albumin 1.9 L (3.5-5.0) g/dL Disposition Clinical Impression: Portal vein thrombosis, Ascites Disposition: HOME SELF-CARE Condition: Stable Instructions (If sedation given, give patient instructions): Ascites (ED), Venous Thromboembolism (ED) Additional Instructions: Please use medication as discussed. Please follow-up with family doctor in the next 2 days, take anticoagulation therapy and follow-up with gastroenterology. Please return to emergency room if the symptoms increase or worsen or for any other concerns. Prescriptions: Apixaban [Eliquis] 5 mg PO BID 30 Days #60 tab Spironolactone 50 mg PO DAILY 30 Days #30 tablet Is patient prescribed a controlled substance at d/c from ED?: No Referrals: Chuck Talbot MD [Primary Care Provider] - 1-2 days Dipak Parmar MD [STAFF PHYSICIAN] - 1-2 days Time of Disposition: 16:03
[2018-11-03] MEDS ORDERED: LACTATED RINGERS 1,000 ML IV ONE (14:27)
[2018-11-03 14:41] LABS: Anisocytosis Moderate; Basophils % (A) 0 %; Eosinophils # (A) 0.1 k/uL (0-0.7); Eosinophils % (A) 1 %; HCT 28.5 % (39.0-53.0); Hypochromasia Marked; Lymphocytes # (A) 0.7 k/uL (1.0-4.8); Lymphocytes % (A) 7 %; MCV 67.6 fL (80.0-100.0); Microcytosis Marked; Monocytes # (A) 0.3 k/uL (0-1.0); Monocytes % (A) 3 %; Neutrophils # (A) 8.6 k/uL (1.3-7.7); Neutrophils % (A) 88 %; Platelet Count 330 k/uL (150-450); Poikilocytosis Marked; RBC 4.21 m/uL (4.30-5.90); RDW 23.6 % (11.5-15.5); WBC 9.8 k/uL (3.8-10.6)
[2018-11-03 14:50] LABS: ALT 22 U/L (21-72); AST 16 U/L (17-59); African American GFR (CKD) >90 (>60 ml/min/1.73 sqM); Albumin 1.9 g/dL (3.5-5.0); Alkaline Phosphatase 68 U/L (38-126); Anion Gap 2 mmol/L; Blood Urea Nitrogen 6 mg/dL (9-20); Calcium 7.4 mg/dL (8.4-10.2); Carbon Dioxide 26 mmol/L (22-30); Chloride 105 mmol/L (98-107); Glucose 100 mg/dL (74-99); Potassium 4.1 mmol/L (3.5-5.1); Sodium 133 mmol/L (137-145); Total Bilirubin 0.3 mg/dL (0.2-1.3); Total Protein 4.6 g/dL (6.3-8.2)
[2018-11-03] MEDS ORDERED: CALCIUM CARBONATE 500 MG CHEWABLE PO STA (14:51)
[2018-11-03 15:58] LABS: INR 1.2 (<1.2); Prothrombin Time 12.1 sec (9.0-12.0)
[2018-11-03 16:02] LABS: Partial Thromboplastin Time 20.9 sec (22.0-30.0)
[2018-11-03 17:05] VITALS: BP 94/67; PULSE 55; TEMP 97.3
== END 2018-11-03 17:17 | disposition home or self-care (01) ==
LOC: EC 12:15
DX: I81 Portal vein thrombosis (principal); R18.8 Other ascites; J45.909 Unspecified asthma, uncomplicated; F17.200 Nicotine dependence, unspecified, uncomplicated; Z79.899 Other long term (current) drug therapy; Z86.718 Personal history of other venous thrombosis and embolism; Z86.711 Personal history of pulmonary embolism
CPT/HCPCS: 36415; 80053; 85025; 85610; 85730; 99283

== ENCOUNTER 2018-11-13 20:44 | Inpatient (IN) | payer OTHER ==
[2018-11-13] MEDS ORDERED: MORPHINE SULFATE 2 MG/ML SYRINGE IVP STA (22:10)
[2018-11-13 22:58] LABS: Anisocytosis Moderate; Basophils % (A) 0 %; Eosinophils # (A) 0.1 k/uL (0-0.7); Eosinophils % (A) 1 %; HCT 28.4 % (39.0-53.0); HGB 7.8 gm/dL (13.0-17.5); Hypochromasia Marked; Lymphocytes % (A) 11 %; MCH 19.6 pg (25.0-35.0); MCHC 27.4 g/dL (31.0-37.0); MCV 71.6 fL (80.0-100.0); Mean Platelet Volume 6.4; Microcytosis Marked; Monocytes # (A) 0.4 k/uL (0-1.0); Monocytes % (A) 5 %; Neutrophils # (A) 7.1 k/uL (1.3-7.7); Neutrophils % (A) 80 %; Platelet Count 378 k/uL (150-450); Poikilocytosis Moderate; RBC 3.97 m/uL (4.30-5.90); RDW 22.2 % (11.5-15.5); WBC 8.9 k/uL (3.8-10.6)
[2018-11-13 23:07] LABS: INR 1.1 (<1.2); Partial Thromboplastin Time 23.9 sec (22.0-30.0); Prothrombin Time 11.4 sec (9.0-12.0)
[2018-11-13 23:13] LABS: ALT 20 U/L (21-72); AST 14 U/L (17-59); African American GFR (CKD) >90 (>60 ml/min/1.73 sqM); Albumin 2.1 g/dL (3.5-5.0); Alkaline Phosphatase 68 U/L (38-126); Anion Gap 2 mmol/L; Blood Urea Nitrogen 6 mg/dL (9-20); Calcium 7.7 mg/dL (8.4-10.2); Carbon Dioxide 28 mmol/L (22-30); Chloride 103 mmol/L (98-107); Glucose 98 mg/dL (74-99); Lipase 450 U/L (23-300); Potassium 4.2 mmol/L (3.5-5.1); Sodium 133 mmol/L (137-145); Total Bilirubin 0.2 mg/dL (0.2-1.3); Total Protein 4.9 g/dL (6.3-8.2)
--- NOTE | 2018-11-14 | ED ---
Abdominal Pain HPI - General Chief Complaint: Abdominal Pain Stated Complaint: Abd pain, SOB Time Seen by Provider: 11/13/18 20:55 Source: patient, family Mode of arrival: ambulatory Limitations: no limitations - History of Present Illness Initial Comments: The patient is a 38-year-old male with past medical history of IVDA, portal venous thrombosis and ascites who presents to the emergency room with worsening ascites. The patient was seen on November 02 and left the hospital AGAINST MEDICAL ADVICE. He then presented to the emergency department for same complaint of abdominal pain and ascites the following day. He was referred to his GI physician's office. States that he went home and made an appointment however the office cannot get him in until the of this month. Patient reports worsening lower extremity swelling as well as abdominal pain. He has never had a paracentesis before. States he's been taking his medications as directed. He denies any fevers or chills. Admits to nausea without vomiting. States he has not used heroin in 5 days. He is currently on Suboxone. He denies any additional symptoms to include back pain, flank pain or headaches. There are no other alleviating, precipitating or modifying factors - Related Data Home Medications Medication Instructions Recorded Confirmed Albuterol Inhaler [Ventolin Hfa 2 puff INHALATION RT-DAILY PRN 07/30/18 11/13/18 Inhaler] Buprenorphine HCl/Naloxone HCl 1 film SL BID 07/30/18 11/13/18 [Suboxone 8 mg-2 mg Sl Film] traZODone HCL 150 mg PO HS 07/30/18 11/13/18 Ranitidine HCl [Zantac] 75 mg PO HS PRN 11/03/18 11/13/18 Previous Rx's Medication Instructions Recorded Apixaban [Eliquis] 5 mg PO BID 30 Days #60 tab 11/03/18 Spironolactone 50 mg PO DAILY 30 Days #30 tablet 11/03/18 Ferrous Sulfate [Feosol] 325 mg PO BID #60 tab 11/17/18 Furosemide [Lasix] 40 mg PO DAILY #30 tablet 11/17/18 Allergies Allergy/AdvReac Type Severity Reaction Status Date / Time No Known Allergies Allergy Verified 11/13/18 21:29 Review of Systems ROS Statement: Those systems with pertinent positive or pertinent negative responses have been documented in the HPI. ROS Other: All systems not noted in ROS Statement are negative. Past Medical History Past Medical History: Asthma, Deep Vein Thrombosis (DVT), Pulmonary Embolus (PE) Additional Past Medical History / Comment(s): low BP, crohns, diarrhea, recent blood clot in left side of neck and PE ans is on lovenox ([facility] for 4-5 days) and got several blood transfusion while inpt History of Any Multi-Drug Resistant Organisms: None Reported Past Surgical History: Bowel Resection Additional Past Surgical History / Comment(s): colonoscopy, abscess lower left abdomen- drainage, port for TPN/later removed. Past Anesthesia/Blood Transfusion Reactions: No Reported Reaction Past Psychological History: No Psychological Hx Reported Smoking Status: Current every day smoker Past Alcohol Use History: None Reported Past Drug Use History: None Reported, Heroin - Past Family History Mother Family Medical History: No Reported History General Exam Limitations: no limitations General appearance: alert, cachectic, other (jaundiced) Head exam: Present: normocephalic Eye exam: Present: PERRL, EOMI, scleral icterus ENT exam: Present: normal exam, mucous membranes moist Neck exam: Present: normal inspection. Absent: tenderness, meningismus, lymphadenopathy Respiratory exam: Present: normal lung sounds bilaterally. Absent: respiratory distress, wheezes, rales, rhonchi, stridor Cardiovascular Exam: Present: regular rate, normal rhythm, normal heart sounds. Absent: systolic murmur, diastolic murmur, rubs, gallop, clicks GI/Abdominal exam: Present: other (protuberant with large fluid wave. Mild tenderness to palpation. No peritoneal signs. ) Extremities exam: Present: pedal edema Back exam: Present: other Psychiatric exam: Present: normal affect, normal mood Skin exam: Present: warm, dry, other (jaundiced) Course Vital Signs 11/13/18 11/13/18 11/13/18 20:55 21:12 22:53 Temperature 98.3 F Pulse Rate 71 66 58 L Respiratory 18 16 18 Rate Blood Pressure 100/64 95/66 92/70 O2 Sat by Pulse 99 97 97 Oximetry 11/13/18 11/14/18 11/14/18 23:54 01:18 03:02 Temperature 98 F Pulse Rate 58 L 56 L 56 L Respiratory 18 18 18 Rate Blood Pressure 101/70 98/64 102/65 O2 Sat by Pulse 98 97 98 Oximetry Medical Decision Making - Medical Decision Making The patient was seen by myself in room 3. He is hooked up to continuous pulse ox and cardiac monitoring. A 12-lead EKG was performed on the patient which dem onstrated a sinus rhythm. We did obtain IV access. I did discuss pain medication options with the patient. He cannot have Tylenol due to his liver disease. He cannot have Motrin as he is on Eliquis. I did inform him of the interaction of Morphine with his Suboxone. The patient understood however is requesting a dose of Morphine as he is in significant pain. I did give him 2 mg IV, as well as 4 mg of Zofran. I did recommend laboratory studies. The patient was sent for an abdominal ultrasound. Upon review of the results, I discussed with the patient. He does have a large amount ascites at this time. I did recommend hospital admission for which patient did agree. A call discuss case with Dr. Mayen. He was accepting of the admission. He does present to the ER to evaluate the patient. The patient remained in stable condition awaiting transport to the floor - Differential Diagnosis abdominal ascites, liver failure, portal vein thrombosis, hx IVDA - Lab Data Result diagrams: 11/14/18 11:35 11/14/18 11:35 Lab Results 11/13/18 11/13/18 11/13/18 Range/Units 22:30 22:30 22:30 WBC 8.9 (3.8-10.6) k/uL RBC 3.97 L (4.30-5.90) m/uL Hgb 7.8 L (13.0-17.5) gm/dL Hct 28.4 L (39.0-53.0) % MCV 71.6 L (80.0-100.0) fL MCH 19.6 L (25.0-35.0) pg MCHC 27.4 L (31.0-37.0) g/dL RDW 22.2 H (11.5-15.5) % Plt Count 378 (150-450) k/uL Neutrophils % 80 % Lymphocytes % 11 % Monocytes % 5 % Eosinophils % 1 % Basophils % 0 % Neutrophils # 7.1 (1.3-7.7) k/uL Lymphocytes # 1.0 (1.0-4.8) k/uL Monocytes # 0.4 (0-1.0) k/uL Eosinophils # 0.1 (0-0.7) k/uL Basophils # 0.0 (0-0.2) k/uL Hypochromasia Marked Poikilocytosis Moderate Anisocytosis Moderate Microcytosis Marked Retic Count (0.5-2.0) % PT (9.0-12.0) sec INR (<1.2) APTT (22.0-30.0) sec Sodium 133 L (137-145) mmol/L Potassium 4.2 (3.5-5.1) mmol/L Chloride 103 (98-107) mmol/L Carbon Dioxide 28 (22-30) mmol/L Anion Gap 2 mmol/L BUN 6 L (9-20) mg/dL Creatinine 0.67 (0.66-1.25) mg/dL Est GFR (CKD-EPI)AfAm >90 (>60 ml/min/1.73 sqM) Est GFR (CKD-EPI)NonAf >90 (>60 ml/min/1.73 sqM) Glucose 98 (74-99) mg/dL Plasma Lactic Acid Georges 0.8 (0.7-2.0) mmol/L Calcium 7.7 L (8.4-10.2) mg/dL Iron (65-175) ug/dL TIBC (228-460) ug/dL Iron Saturation (15.00-50.00) Ferritin (22.0-322.0) ng/mL Total Bilirubin 0.2 (0.2-1.3) mg/dL AST 14 L (17-59) U/L ALT 20 L (21-72) U/L Alkaline Phosphatase 68 (38-126) U/L Ammonia (<30) umol/L Lactate Dehydrogenase (313-618) U/L Total Protein 4.9 L (6.3-8.2) g/dL Albumin 2.1 L (3.5-5.0) g/dL Amylase (30-110) U/L Lipase 450 H (23-300) U/L Vitamin B12 (200.0-944.0) pg/mL Folate ng/mL Urine Color Urine Appearance (Clear) Urine pH (5.0-8.0) Ur Specific [place] (1.001-1.035) Urine Protein (Negative) Urine Glucose (UA) (Negative) Urine Ketones (Negative) Urine Blood (Negative) Urine Nitrite (Negative) Urine Bilirubin (Negative) Urine Urobilinogen (<2.0) mg/dL Ur Leukocyte Esterase (Negative) Amorphous Sediment (None) /hpf Fluid Source Fluid Color Fluid Appearance Fluid RBC /uL Fluid Nucleated Cells /uL Fluid Polynuclear WBCs % Fluid Mononuclear WBCs % Body Fluid Protein Source Fluid Total Protein mg/dL Fluid Albumin g/dL 11/13/18 11/14/18 11/14/18 Range/Units 22:30 02:10 11:35 WBC 8.4 (3.8-10.6) k/uL RBC 4.20 L (4.30-5.90) m/uL Hgb 7.9 L (13.0-17.5) gm/dL Hct 29.3 L (39.0-53.0) % MCV 69.8 L (80.0-100.0) fL MCH 18.9 L (25.0-35.0) pg MCHC 27.0 L (31.0-37.0) g/dL RDW 23.2 H (11.5-15.5) % Plt Count 471 H (150-450) k/uL Neutrophils % 81 % Lymphocytes % 12 % Monocytes % 5 % Eosinophils % 1 % Basophils % 0 % Neutrophils # 6.8 (1.3-7.7) k/uL Lymphocytes # 1.0 (1.0-4.8) k/uL Monocytes # 0.4 (0-1.0) k/uL Eosinophils # 0.1 (0-0.7) k/uL Basophils # 0.0 (0-0.2) k/uL Hypochromasia Marked Poikilocytosis Moderate Anisocytosis Moderate Microcytosis Marked Retic Count 2.2 H (0.5-2.0) % PT 11.4 (9.0-12.0) sec INR 1.1 (<1.2) APTT 23.9 (22.0-30.0) sec Sodium (137-145) mmol/L Potassium (3.5-5.1) mmol/L Chloride (98-107) mmol/L Carbon Dioxide (22-30) mmol/L Anion Gap mmol/L BUN (9-20) mg/dL Creatinine (0.66-1.25) mg/dL Est GFR (CKD-EPI)AfAm (>60 ml/min/1.73 sqM) Est GFR (CKD-EPI)NonAf (>60 ml/min/1.73 sqM) Glucose (74-99) mg/dL Plasma Lactic Acid Georges (0.7-2.0) mmol/L Calcium (8.4-10.2) mg/dL Iron (65-175) ug/dL TIBC (228-460) ug/dL Iron Saturation (15.00-50.00) Ferritin (22.0-322.0) ng/mL Total Bilirubin (0.2-1.3) mg/dL AST (17-59) U/L ALT (21-72) U/L Alkaline Phosphatase (38-126) U/L Ammonia (<30) umol/L Lactate Dehydrogenase (313-618) U/L Total Protein (6.3-8.2) g/dL Albumin (3.5-5.0) g/dL Amylase (30-110) U/L Lipase (23-300) U/L Vitamin B12 (200.0-944.0) pg/mL Folate ng/mL Urine Color Yellow Urine Appearance Turbid (Clear) Urine pH 8.0 (5.0-8.0) Ur Specific [place] 1.011 (1.001-1.035) Urine Protein Negative (Negative) Urine Glucose (UA) Negative (Negative) Urine Ketones Negative (Negative) Urine Blood Negative (Negative) Urine Nitrite Negative (Negative) Urine Bilirubin Negative (Negative) Urine Urobilinogen <2.0 (<2.0) mg/dL Ur Leukocyte Esterase Negative (Negative) Amorphous Sediment Rare H (None) /hpf Fluid Source Fluid Color Fluid Appearance Fluid RBC /uL Fluid Nucleated Cells /uL Fluid Polynuclear WBCs % Fluid Mononuclear WBCs % Body Fluid Protein Source Fluid Total Protein mg/dL Fluid Albumin g/dL 11/14/18 11/14/18 11/14/18 Range/Units 11:35 11:35 11:35 WBC (3.8-10.6) k/uL RBC (4.30-5.90) m/uL Hgb (13.0-17.5) gm/dL Hct (39.0-53.0) % MCV (80.0-100.0) fL MCH (25.0-35.0) pg MCHC (31.0-37.0) g/dL RDW (11.5-15.5) % Plt Count (150-450) k/uL Neutrophils % % Lymphocytes % % Monocytes % % Eosinophils % % Basophils % % Neutrophils # (1.3-7.7) k/uL Lymphocytes # (1.0-4.8) k/uL Monocytes # (0-1.0) k/uL Eosinophils # (0-0.7) k/uL Basophils # (0-0.2) k/uL Hypochromasia Poikilocytosis Anisocytosis Microcytosis Retic Count (0.5-2.0) % PT (9.0-12.0) sec INR (<1.2) APTT (22.0-30.0) sec Sodium 132 L (137-145) mmol/L Potassium 4.4 (3.5-5.1) mmol/L Chloride 105 (98-107) mmol/L Carbon Dioxide 23 (22-30) mmol/L Anion Gap 4 mmol/L BUN 5 L (9-20) mg/dL Creatinine 0.58 L (0.66-1.25) mg/dL Est GFR (CKD-EPI)AfAm >90 (>60 ml/min/1.73 sqM) Est GFR (CKD-EPI)NonAf >90 (>60 ml/min/1.73 sqM) Glucose 92 (74-99) mg/dL Plasma Lactic Acid Georges (0.7-2.0) mmol/L Calcium 7.7 L (8.4-10.2) mg/dL Iron 10 L (65-175) ug/dL TIBC 253 (228-460) ug/dL Iron Saturation 3.95 L (15.00-50.00) Ferritin 8.0 L (22.0-322.0) ng/mL Total Bilirubin 0.3 (0.2-1.3) mg/dL AST 15 L (17-59) U/L ALT 19 L (21-72) U/L Alkaline Phosphatase 68 (38-126) U/L Ammonia (<30) umol/L Lactate Dehydrogenase 430 (313-618) U/L Total Protein 4.9 L (6.3-8.2) g/dL Albumin 2.1 L (3.5-5.0) g/dL Amylase 97 (30-110) U/L Lipase 353 H (23-300) U/L Vitamin B12 671.0 (200.0-944.0) pg/mL Folate 12.2 ng/mL Urine Color Urine Appearance (Clear) Urine pH (5.0-8.0) Ur Specific [place] (1.001-1.035) Urine Protein (Negative) Urine Glucose (UA) (Negative) Urine Ketones (Negative) Urine Blood (Negative) Urine Nitrite (Negative) Urine Bilirubin (Negative) Urine Urobilinogen (<2.0) mg/dL Ur Leukocyte Esterase (Negative) Amorphous Sediment (None) /hpf Fluid Source Fluid Color Fluid Appearance Fluid RBC /uL Fluid Nucleated Cells /uL Fluid Polynuclear WBCs % Fluid Mononuclear WBCs % Body Fluid Protein Source Fluid Total Protein mg/dL Fluid Albumin g/dL 11/14/18 11/15/18 11/15/18 Range/Units 17:39 00:00 07:59 WBC (3.8-10.6) k/uL RBC (4.30-5.90) m/uL Hgb (13.0-17.5) gm/dL Hct (39.0-53.0) % MCV (80.0-100.0) fL MCH (25.0-35.0) pg MCHC (31.0-37.0) g/dL RDW (11.5-15.5) % Plt Count (150-450) k/uL Neutrophils % % Lymphocytes % % Monocytes % % Eosinophils % % Basophils % % Neutrophils # (1.3-7.7) k/uL Lymphocytes # (1.0-4.8) k/uL Monocytes # (0-1.0) k/uL Eosinophils # (0-0.7) k/uL Basophils # (0-0.2) k/uL Hypochromasia Poikilocytosis Anisocytosis Microcytosis Retic Count (0.5-2.0) % PT (9.0-12.0) sec INR (<1.2) APTT 23.7 38.2 H 43.4 H (22.0-30.0) sec Sodium (137-145) mmol/L Potassium (3.5-5.1) mmol/L Chloride (98-107) mmol/L Carbon Dioxide (22-30) mmol/L Anion Gap mmol/L BUN (9-20) mg/dL Creatinine (0.66-1.25) mg/dL Est GFR (CKD-EPI)AfAm (>60 ml/min/1.73 sqM) Est GFR (CKD-EPI)NonAf (>60 ml/min/1.73 sqM) Glucose (74-99) mg/dL Plasma Lactic Acid Georges (0.7-2.0) mmol/L Calcium (8.4-10.2) mg/dL Iron (65-175) ug/dL TIBC (228-460) ug/dL Iron Saturation (15.00-50.00) Ferritin (22.0-322.0) ng/mL Total Bilirubin (0.2-1.3) mg/dL AST (17-59) U/L ALT (21-72) U/L Alkaline Phosphatase (38-126) U/L Ammonia (<30) umol/L Lactate Dehydrogenase (313-618) U/L Total Protein (6.3-8.2) g/dL Albumin (3.5-5.0) g/dL Amylase (30-110) U/L Lipase (23-300) U/L Vitamin B12 (200.0-944.0) pg/mL Folate ng/mL Urine Color Urine Appearance (Clear) Urine pH (5.0-8.0) Ur Specific [place] (1.001-1.035) Urine Protein (Negative) Urine Glucose (UA) (Negative) Urine Ketones (Negative) Urine Blood (Negative) Urine Nitrite (Negative) Urine Bilirubin (Negative) Urine Urobilinogen (<2.0) mg/dL Ur Leukocyte Esterase (Negative) Amorphous Sediment (None) /hpf Fluid Source Fluid Color Fluid Appearance Fluid RBC /uL Fluid Nucleated Cells /uL Fluid Polynuclear WBCs % Fluid Mononuclear WBCs % Body Fluid Protein Source Fluid Total Protein mg/dL Fluid Albumin g/dL 11/15/18 11/15/18 11/15/18 Range/Units 15:00 15:00 15:00 WBC (3.8-10.6) k/uL RBC (4.30-5.90) m/uL Hgb (13.0-17.5) gm/dL Hct (39.0-53.0) % MCV (80.0-100.0) fL MCH (25.0-35.0) pg MCHC (31.0-37.0) g/dL RDW (11.5-15.5) % Plt Count (150-450) k/uL Neutrophils % % Lymphocytes % % Monocytes % % Eosinophils % % Basophils % % Neutrophils # (1.3-7.7) k/uL Lymphocytes # (1.0-4.8) k/uL Monocytes # (0-1.0) k/uL Eosinophils # (0-0.7) k/uL Basophils # (0-0.2) k/uL Hypochromasia Poikilocytosis Anisocytosis Microcytosis Retic Count (0.5-2.0) % PT (9.0-12.0) sec INR (<1.2) APTT (22.0-30.0) sec Sodium (137-145) mmol/L Potassium (3.5-5.1) mmol/L Chloride (98-107) mmol/L Carbon Dioxide (22-30) mmol/L Anion Gap mmol/L BUN (9-20) mg/dL Creatinine (0.66-1.25) mg/dL Est GFR (CKD-EPI)AfAm (>60 ml/min/1.73 sqM) Est GFR (CKD-EPI)NonAf (>60 ml/min/1.73 sqM) Glucose (74-99) mg/dL Plasma Lactic Acid Georges (0.7-2.0) mmol/L Calcium (8.4-10.2) mg/dL Iron (65-175) ug/dL TIBC (228-460) ug/dL Iron Saturation (15.00-50.00) Ferritin (22.0-322.0) ng/mL Total Bilirubin (0.2-1.3) mg/dL AST (17-59) U/L ALT (21-72) U/L Alkaline Phosphatase (38-126) U/L Ammonia (<30) umol/L Lactate Dehydrogenase (313-618) U/L Total Protein (6.3-8.2) g/dL Albumin (3.5-5.0) g/dL Amylase (30-110) U/L Lipase (23-300) U/L Vitamin B12 (200.0-944.0) pg/mL Folate ng/mL Urine Color Urine Appearance (Clear) Urine pH (5.0-8.0) Ur Specific [place] (1.001-1.035) Urine Protein (Negative) Urine Glucose (UA) (Negative) Urine Ketones (Negative) Urine Blood (Negative) Urine Nitrite (Negative) Urine Bilirubin (Negative) Urine Urobilinogen (<2.0) mg/dL Ur Leukocyte Esterase (Negative) Amorphous Sediment (None) /hpf Fluid Source Ascitic Fluid Color Colorless Fluid Appearance Hazy Fluid RBC 8 /uL Fluid Nucleated Cells 22 /uL Fluid Polynuclear WBCs 25 % Fluid Mononuclear WBCs 75 % Body Fluid Protein Source Ascites Fluid Total Protein 1143 mg/dL Fluid Albumin <1.00 g/dL 11/15/18 11/15/18 11/16/18 Range/Units 15:39 19:55 01:38 WBC (3.8-10.6) k/uL RBC (4.30-5.90) m/uL Hgb (13.0-17.5) gm/dL Hct (39.0-53.0) % MCV (80.0-100.0) fL MCH (25.0-35.0) pg MCHC (31.0-37.0) g/dL RDW (11.5-15.5) % Plt Count (150-450) k/uL Neutrophils % % Lymphocytes % % Monocytes % % Eosinophils % % Basophils % % Neutrophils # (1.3-7.7) k/uL Lymphocytes # (1.0-4.8) k/uL Monocytes # (0-1.0) k/uL Eosinophils # (0-0.7) k/uL Basophils # (0-0.2) k/uL Hypochromasia Poikilocytosis Anisocytosis Microcytosis Retic Count (0.5-2.0) % PT (9.0-12.0) sec INR (<1.2) APTT 44.9 H 151.5 H* (22.0-30.0) sec Sodium (137-145) mmol/L Potassium (3.5-5.1) mmol/L Chloride (98-107) mmol/L Carbon Dioxide (22-30) mmol/L Anion Gap mmol/L BUN (9-20) mg/dL Creatinine (0.66-1.25) mg/dL Est GFR (CKD-EPI)AfAm (>60 ml/min/1.73 sqM) Est GFR (CKD-EPI)NonAf (>60 ml/min/1.73 sqM) Glucose (74-99) mg/dL Plasma Lactic Acid Georges (0.7-2.0) mmol/L Calcium (8.4-10.2) mg/dL Iron (65-175) ug/dL TIBC (228-460) ug/dL Iron Saturation (15.00-50.00) Ferritin (22.0-322.0) ng/mL Total Bilirubin (0.2-1.3) mg/dL AST (17-59) U/L ALT (21-72) U/L Alkaline Phosphatase (38-126) U/L Ammonia <9 (<30) umol/L Lactate Dehydrogenase (313-618) U/L Total Protein (6.3-8.2) g/dL Albumin (3.5-5.0) g/dL Amylase (30-110) U/L Lipase (23-300) U/L Vitamin B12 (200.0-944.0) pg/mL Folate ng/mL Urine Color Urine Appearance (Clear) Urine pH (5.0-8.0) Ur Specific [place] (1.001-1.035) Urine Protein (Negative) Urine Glucose (UA) (Negative) Urine Ketones (Negative) Urine Blood (Negative) Urine Nitrite (Negative) Urine Bilirubin (Negative) Urine Urobilinogen (<2.0) mg/dL Ur Leukocyte Esterase (Negative) Amorphous Sediment (None) /hpf Fluid Source Fluid Color Fluid Appearance Fluid RBC /uL Fluid Nucleated Cells /uL Fluid Polynuclear WBCs % Fluid Mononuclear WBCs % Body Fluid Protein Source Fluid Total Protein mg/dL Fluid Albumin g/dL 11/16/18 11/16/18 Range/Units 08:52 08:52 WBC (3.8-10.6) k/uL RBC (4.30-5.90) m/uL Hgb (13.0-17.5) gm/dL Hct (39.0-53.0) % MCV (80.0-100.0) fL MCH (25.0-35.0) pg MCHC (31.0-37.0) g/dL RDW (11.5-15.5) % Plt Count (150-450) k/uL Neutrophils % % Lymphocytes % % Monocytes % % Eosinophils % % Basophils % % Neutrophils # (1.3-7.7) k/uL Lymphocytes # (1.0-4.8) k/uL Monocytes # (0-1.0) k/uL Eosinophils # (0-0.7) k/uL Basophils # (0-0.2) k/uL Hypochromasia Poikilocytosis Anisocytosis Microcytosis Retic Count (0.5-2.0) % PT 11.5 (9.0-12.0) sec INR 1.1 (<1.2) APTT 47.6 H (22.0-30.0) sec Sodium (137-145) mmol/L Potassium (3.5-5.1) mmol/L Chloride (98-107) mmol/L Carbon Dioxide (22-30) mmol/L Anion Gap mmol/L BUN (9-20) mg/dL Creatinine (0.66-1.25) mg/dL Est GFR (CKD-EPI)AfAm (>60 ml/min/1.73 sqM) Est GFR (CKD-EPI)NonAf (>60 ml/min/1.73 sqM) Glucose (74-99) mg/dL Plasma Lactic Acid Georges (0.7-2.0) mmol/L Calcium (8.4-10.2) mg/dL Iron (65-175) ug/dL TIBC (228-460) ug/dL Iron Saturation (15.00-50.00) Ferritin (22.0-322.0) ng/mL Total Bilirubin (0.2-1.3) mg/dL AST (17-59) U/L ALT (21-72) U/L Alkaline Phosphatase (38-126) U/L Ammonia (<30) umol/L Lactate Dehydrogenase (313-618) U/L Total Protein (6.3-8.2) g/dL Albumin 2.1 L (3.5-5.0) g/dL Amylase (30-110) U/L Lipase (23-300) U/L Vitamin B12 (200.0-944.0) pg/mL Folate ng/mL Urine Color Urine Appearance (Clear) Urine pH (5.0-8.0) Ur Specific [place] (1.001-1.035) Urine Protein (Negative) Urine Glucose (UA) (Negative) Urine Ketones (Negative) Urine Blood (Negative) Urine Nitrite (Negative) Urine Bilirubin (Negative) Urine Urobilinogen (<2.0) mg/dL Ur Leukocyte Esterase (Negative) Amorphous Sediment (None) /hpf Fluid Source Fluid Color Fluid Appearance Fluid RBC /uL Fluid Nucleated Cells /uL Fluid Polynuclear WBCs % Fluid Mononuclear WBCs % Body Fluid Protein Source Fluid Total Protein mg/dL Fluid Albumin g/dL - EKG Data EKG Comments: EKG demonstrates a normal sinus rhythm with a ventricular rate of 60. NC interval 110. QRS 136. QTC 426. There are no acute ST segment elevations or depressions concerning for ischemic changes. The patient does have a right bundle branch block present. No previous EKGs to compare to. Disposition Clinical Impression: Ascites, History of intravenous drug abuse, Portal vein thrombosis, Abdominal distention Disposition: ADMITTED IP TO THIS HOSP Condition: Stable Is patient prescribed a controlled substance at d/c from ED?: No Decision to Admit Reason: Admit from EC Decision Date: 11/14/18 Decision Time: 01:14
--- NOTE | 2018-11-14 00:18 | US ---
EXAM: US Abdomen Complete CLINICAL HISTORY: ITS.REASON US Reason: abdominal pain TECHNIQUE: Real-time ultrasound of the abdomen (complete) with image documentation. COMPARISON: Ultrasound abdomen on 11/02/2018. CT abdomen/pelvis on 10/31/2018. FINDINGS: Liver: Measures 15.3 cm. Increased echogenicity is suggestive of hepatic steatosis. Nodular contour of the liver suggests cirrhosis. Portal vein: Suggestion of nonocclusive thrombus in the portal vein. Gallbladder: Prominence of the gallbladder wall may be accentuated by distention, measuring 4.2 mm in thickness. Sludge in the gallbladder. No pericholecystic fluid. Reportedly positive sonographic Nolen's sign. Biliary tree: No abnormal dilatation. Common bile duct measures 5.3 mm. Pancreas: Visualized portions are unremarkable. Right kidney: Measures 12.1 cm in length. No hydronephrosis or stone. No mass. Peritoneal space: Ascites. IVC: Visualized portions are unremarkable. IMPRESSION: 1. There again appears to be nonocclusive thrombus in the portal vein. 2. Cirrhosis and probable hepatic steatosis. Large amount of ascites throughout the abdomen. 3. Prominence of the gallbladder wall may be accentuated by distention, measuring 4.2 mm in thickness. Sludge in the gallbladder. No pericholecystic fluid. Reportedly positive sonographic Nolen's sign. Findings may be due to liver disease and ascites, but acute cholecystitis is not entirely excluded.
[2018-11-14] MEDS ORDERED: NALOXONE 0.4 MG/ML 1 ML VIAL IV PRN (01:15)
[2018-11-14] MEDS ORDERED: FAMOTIDINE 20 MG TAB PO PRN (02:00)
[2018-11-14] MEDS ORDERED: ALBUTEROL NEBULIZED 2.5 MG/3 ML INHALATION PRN (02:00)
[2018-11-14] MEDS ORDERED: MORPHINE SULFATE 2 MG/ML SYRINGE IVP PRN (02:02)
--- NOTE | 2018-11-14 02:02 | P.HPIM ---
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 The patient was previously admitted to the medicine service for similar on 10/31/18 when he was diagnosed with the portal vein thrombosis. He was scheduled to undergo diagnostic and therapeutic paracentesis, though he left AMA. The patient now presents to the ED with complaints of worsening symptoms. He endorsed an 8/10 constant diffuse abdominal pain gradually worsened. He notes that he is now having difficulty ambulating due to worsening LE edema and has worsening SOB from the ascites pressure. He denied fever, chills, nausea, or vomiting. He further denied diarrhea, headaches, or visual disturbances. Patient notes that he is no longer using any illicit substances and hasn't done so in a few months. The patient underwent an extensive evaluation in the ED w/ abdominal US showing portal vein non-occlusive thrombosis, cirrhosis, and prominence of the gall bladder. Laboratory evaluation revealed WBC count 8.9, Hgb 7.8, platelets 378, Na 133, BUN 6, Cr 0.67, Albumin 2.1, AST 14, ALT 20, total Bilirubin 0.2, and INR 1.1. He is being admitted to the medicine service for [facility]. Review of Systems Pertinent positives and negatives as discussed in HPI, a complete review of systems was performed and all other systems are negative. Past Medical History Past Medical History: Asthma, Deep Vein Thrombosis (DVT), Pulmonary Embolus (PE) Additional Past Medical History / Comment(s): low BP, crohns, diarrhea, recent blood clot in left side of neck and PE ans is on lovenox ([facility] for 4-5 days) and got several blood transfusion while inpt History of Any Multi-Drug Resistant Organisms: None Reported Past Surgical History: Bowel Resection Additional Past Surgical History / Comment(s): colonoscopy, abscess lower left abdomen- drainage, port for TPN/later removed. Past Anesthesia/Blood Transfusion Reactions: No Reported Reaction Past Psychological History: No Psychological Hx Reported Smoking Status: Current every day smoker Past Alcohol Use History: None Reported Past Drug Use History: None Reported, Heroin - Past Family History Mother Family Medical History: No Reported History, Hyperlipidemia Medications and Allergies Home Medications Medication Instructions Recorded Confirmed Type Albuterol Inhaler [Ventolin Hfa 2 puff INHALATION RT-DAILY PRN 07/30/18 11/13/18 History Inhaler] Buprenorphine HCl/Naloxone HCl 1 film SL BID 07/30/18 11/13/18 History [Suboxone 8 mg-2 mg Sl Film] traZODone HCL 150 mg PO HS 07/30/18 11/13/18 History Apixaban [Eliquis] 5 mg PO BID 30 Days #60 tab 11/03/18 11/13/18 Rx Ranitidine HCl [Zantac] 75 mg PO HS PRN 11/03/18 11/13/18 History Spironolactone 50 mg PO DAILY 30 Days #30 tablet 11/03/18 11/13/18 Rx Allergies Allergy/AdvReac Type Severity Reaction Status Date / Time No Known Allergies Allergy Verified 11/13/18 21:29 Physical Exam Vitals: Vital Signs Temp Pulse Resp BP Pulse Ox 11/14/18 01:18 98 F 56 L 18 98/64 97 11/13/18 23:54 58 L 18 101/70 98 11/13/18 22:53 58 L 18 92/70 97 11/13/18 21:12 66 16 95/66 97 11/13/18 20:55 98.3 F 71 18 100/64 99 Intake and Output 11/13/18 11/13/18 11/14/18 14:59 22:59 06:59 Other: Weight 64.864 kg General: cachectic ill appearing M, appears older than stated age, normal weight Derm: no unusual rashes/lesions no unusual ecchymoses, warm, dry Head: atraumatic, normocephalic, symmetric Eyes: EOMI, no lid lag, anicteric sclera, pupils equal round reactive to light ENT: Nose and ears atraumatic, no thrush, no pharyngeal erythema Neck: No thyromegaly, no cervical lymphadenopathy, trachea midline, supple Mouth: no lip lesion, mucus membranes moist Cardiovascular: S1S2 reg, no murmur, positive posterior tibial pulse bilateral, 2+ cristal LE pitting edema, capillary refill less than 2 seconds Lungs: Trace bibasilar rales, no ronchi appreciated, no accessory muscle use Abdominal: Distended w/ fluid thrill, +tenderness to palpation, no guarding, normal bowel sounds Ext: thin extremities, muscle strength 4 out of 5 in all 4 extremities grossly, no contractures, Neuro: CN II-XI grossly intact, light touch intact all 4 extremities, finger to nose within normal limits, Psych: Alert, oriented, appropriate affect Results CBC & Chem 7: 11/13/18 22:30 11/13/18 22:30 Labs: Abnormal Lab Results - Last 24 Hours (Table) 11/13/18 11/13/18 Range/Units 22:30 22:30 RBC 3.97 L (4.30-5.90) m/uL Hgb 7.8 L (13.0-17.5) gm/dL Hct 28.4 L (39.0-53.0) % MCV 71.6 L (80.0-100.0) fL MCH 19.6 L (25.0-35.0) pg MCHC 27.4 L (31.0-37.0) g/dL RDW 22.2 H (11.5-15.5) % Sodium 133 L (137-145) mmol/L BUN 6 L (9-20) mg/dL Calcium 7.7 L (8.4-10.2) mg/dL AST 14 L (17-59) U/L ALT 20 L (21-72) U/L Total Protein 4.9 L (6.3-8.2) g/dL Albumin 2.1 L (3.5-5.0) g/dL Lipase 450 H (23-300) U/L Assessment and Plan Plan: Cirrhosis, portal vein thrombosis in setting of chronic thromboembolic disease -Patient previously underwent laboratory evaluation for cirrhosis with workup unremarkable -Hepatitis Serology and Auto-immune workup negative -Patient will need paracentesis for diagnostic and therapeutic purposes -GI consult -C/w Spironolactone and Eliquis -Pain control Microcytic anemia -Likely component of chronic inflammation and iron deficiency anemia -Will monitor for now Hypoalbuminemia, secondary to cirrhosis -Workup w/ paracentesis Polysubstance abuse -Patient advised on the importance of cessation Gall-bladder thickening, likely due to ascites, low suspicion for primary gall- bladder pathology -Monitor for now Asthma -C/w Albuterol prn DVT prophylaxis -Eliquis The patient is admitted with an anticipated greater than 2 midnight stay for evaluation of cirrhosis, ascites. CODE STATUS:Full Code Discussed with: Patient Anticipated discharge date: 11/16/[address]: Home A total of 45 minutes was spent on the care of this complex patient more than 50% of the time was spent in counseling and care coordination.
[2018-11-14 02:23] LABS: Amorphous Sediment,Urine Rare /hpf; Appearance,Urine Turbid (Clear); Bilirubin,Urine Negative (Negative); Blood,Urine Negative (Negative); Color,Urine Yellow; Glucose,Urine (UA) Negative (Negative); Ketones,Urine Negative (Negative); Leukocyte Esterase,Urine Negative (Negative); Nitrite,Urine Negative (Negative); Protein,Urine Negative (Negative); Specific Gravity,Urine 1.011 (1.001-1.035); Urobilinogen,Urine <2.0 mg/dL (<2.0)
[2018-11-14 03:52] VITALS: BMI 22.4
[2018-11-14] MEDS: MORPHINE SULFATE 2 MG/ML SYRINGE IVP PRN ×6 (05:18→22:48)
[2018-11-14] MEDS: SPIRONOLACTONE 25 MG TAB PO SCH (08:59)
[2018-11-14] MEDS ORDERED: APIXABAN 5 MG TAB PO SCH (09:00)
[2018-11-14] MEDS ORDERED: Buprenorphine Hcl/Naloxone Hcl [Suboxone 8 Mg-2 Mg Sl Film] 1 FILM SL SCH (09:00)
[2018-11-14] MEDS: NICOTINE 21MG/24HR PATCH TRANSDERM SCH (09:50)
--- NOTE | 2018-11-14 10:57 | P.PN ---
Progress Note - Text Briefly The patient is a 38 yo M with a PMH of polysubstance abuse, thromboembolic disease (on Eliquis), portal vein thrombosis, cirrhosis, and Crohn's disease presented to the ED for worsening abdominal distention due to ascites, SOB, and lethargy. Apparently the patient was previously on anticoagulation for his DVT but has not been on any for the last 2 years, reportedly followed with hematology and was allowed to discontinue anticoagulation after a year. Recently he was diagnosed with portal vein thrombosis has been compliant. His last dose of eloquent as was last night, abdominal ultrasound confirming a large amount of ascites, portal vein thrombosis (nonocclusive), prominent gallbladder with sludge with no pericholecystic fluid. Focused exam GI: Soft and moderately distended, tender to palpation diffusely a/p 1) liver cirrhosis with ascites 2) portal vein thrombosis history of thrombolic disease currently and eloquent as last dose last night 3) hypoalbuminemia Plan to switch to from eliquis to IV heparin as a patient will need therapeutic paracentesis likely to be performed by IR for his worsening ascites, and GI consultation. Plan for hematology consultation. Follow-up recommendations continue follow clinical course
[2018-11-14] MEDS: HEPARIN SOD,PORK IN 0.45% NACL 25,000 UNIT in 0.45% NACL 1 250ML.BAG IV SCH (11:29)
--- NOTE | 2018-11-14 11:31 | P.CONS ---
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 Patient was seen in consultation 2 weeks ago for multiple constitutional symptoms such as anemia ascites lower extremity edema exacerbation of Crohn's. CT abdomen and pelvis reported features of cirrhosis. Ultrasound abdomen showed nonoccluding thrombus within the splenoportal confluence and main portal vein with cirrhotic liver abdominal ascites portal hypertension splenomegaly. Serologic chronic liver disease requested on last admission and reviewed results are unremarkable. Patient did not undergo paracentesis he left AMA. Patient states he is taking his anticoagulation is advised. Last usage of heroin about 5 days ago. Hemoglobin 7.8. MCV 71. Platelet 370. INR 1.1. Sodium 133. Potassium 4.2. BUN 6. Creatinine 0.6. Total bilirubin 0.2. AST 14. ALT 20. AP 68. Lipase 450. Hepatitis screen nonreactive. HIV nonreactive. Quantitative HCV not detected. AFP 6. Receiving IV heparin. Venous Doppler study pending. Tentative diagnostic therapeutic paracentesis scheduled for November 16. Anticoagulation on hold. Denies fever chills hematemesis hematochezia melena. Review of Systems Constitutional: Denies fever, chills, sweats, weight gain, or loss. HEENT: Negative for migraines, blurred vision or loss, earaches, drainage, tinnitus, oral mucosal lesions, dysphagia, or odynophagia. Cardiac: Negative for chest pain, arrhythmias, or palpitation. Respiratory: Negative for shortness of breath, hemoptysis, cough, or sputum production. Gastrointestinal: See HPI for pertinent findings. Genitourinary: Negative for hematuria, urgency, frequency, polyuria, dysuria, or penile discharge. Musculoskeletal: Negative for muscle aches, swelling, arthritis, and arthralgias. Neurologic: Negative for stroke or TIA. Endocrine: Negative for thyroid problems. Skin: Negative for rash or itching. Psychiatric: Negative history for depression and anxiety Past Medical History Past Medical History: Asthma, Deep Vein Thrombosis (DVT), Pulmonary Embolus (PE) Additional Past Medical History / Comment(s): low BP, crohns, diarrhea, recent blood clot in left side of neck and PE ans is on lovenox ([facility] for 4-5 days) and got several blood transfusion while inpt History of Any Multi-Drug Resistant Organisms: None Reported Past Surgical History: Bowel Resection Additional Past Surgical History / Comment(s): colonoscopy, abscess lower left abdomen- drainage, port for TPN/later removed. Past Anesthesia/Blood Transfusion Reactions: No Reported Reaction Past Psychological History: No Psychological Hx Reported Smoking Status: Current every day smoker Past Alcohol Use History: None Reported Past Drug Use History: None Reported, Heroin - Past Family History Mother Family Medical History: No Reported History Medications and Allergies Home Medications Medication Instructions Recorded Confirmed Type Albuterol Inhaler [Ventolin Hfa 2 puff INHALATION RT-DAILY PRN 07/30/18 11/13/18 History Inhaler] Buprenorphine HCl/Naloxone HCl 1 film SL BID 07/30/18 11/13/18 History [Suboxone 8 mg-2 mg Sl Film] traZODone HCL 150 mg PO HS 07/30/18 11/13/18 History Apixaban [Eliquis] 5 mg PO BID 30 Days #60 tab 11/03/18 11/13/18 Rx Ranitidine HCl [Zantac] 75 mg PO HS PRN 11/03/18 11/13/18 History Spironolactone 50 mg PO DAILY 30 Days #30 tablet 11/03/18 11/13/18 Rx Allergies Allergy/AdvReac Type Severity Reaction Status Date / Time No Known Allergies Allergy Verified 11/13/18 21:29 Physical Exam Vitals: Vital Signs Temp Pulse Pulse Resp BP BP Pulse Ox 11/14/18 09:07 60 17 92/59 11/14/18 05:13 97.8 F 54 L 16 96/63 98 11/14/18 03:53 50 L 15 11/14/18 03:27 97.9 F 59 L 15 94/58 97 11/14/18 03:02 56 L 18 102/65 98 11/14/18 01:18 98 F 56 L 18 98/64 97 11/13/18 23:54 58 L 18 101/70 98 11/13/18 22:53 58 L 18 92/70 97 11/13/18 21:12 66 16 95/66 97 07/02/19 20:55 98.3 F 71 18 100/64 99 Intake and Output 11/13/18 11/14/18 11/14/18 22:59 06:59 14:59 Output Total 300 Balance -300 Output: Urine 300 Other: Voiding Method Toilet Weight 64.864 kg General appearance: The patient is alert, oriented, in no acute distress. Cachectic appearance. HET: Head is normocephalic and atraumatic. Pupils are equal and reactive. Oropharynx is clear without lesions. Neck: Supple without lymphadenopathy. Trachea midline. Heart: S1 S2. Regular rate and rhythm. Lungs: No crackles or wheezes are heard. Abdomen: Soft, distended with ascites with bowel sounds. No peritoneal signs. No palpable organomegaly or masses. Extremities: +3 bilateral lower extremity edema. Neurological: No focal deficits. Strength and sensation are grossly intact. Results CBC & Chem 7: 11/14/18 11:35 11/14/18 11:35 Labs: Abnormal Lab Results - Last 24 Hours (Table) 11/13/18 11/13/18 11/14/18 Range/Units 22:30 22:30 02:10 RBC 3.97 L (4.30-5.90) m/uL Hgb 7.8 L (13.0-17.5) gm/dL Hct 28.4 L (39.0-53.0) % MCV 71.6 L (80.0-100.0) fL MCH 19.6 L (25.0-35.0) pg MCHC 27.4 L (31.0-37.0) g/dL RDW 22.2 H (11.5-15.5) % Sodium 133 L (137-145) mmol/L BUN 6 L (9-20) mg/dL Calcium 7.7 L (8.4-10.2) mg/dL AST 14 L (17-59) U/L ALT 20 L (21-72) U/L Total Protein 4.9 L (6.3-8.2) g/dL Albumin 2.1 L (3.5-5.0) g/dL Lipase 450 H (23-300) U/L Amorphous Sediment Rare H (None) /hpf US - abdomen: report reviewed (Dr. Parmar) Assessment and Plan (1) Cirrhosis of liver with ascites Narrative/Plan: 30-year-old gentleman with history of juvenile Crohn's disease, thromboembolic disease maintained on chronic anticoagulation, intravenous drug abuse heroin as recent as 5 days ago with a history of medical noncompliance presents with worsening abdominal distention ascites with abdominal imaging reporting cirrhotic liver. Serologic workup for chronic liver disease unremarkable. Recent hospitalization for exacerbation of Crohn's disease with findings of nono cclusive portal vein thrombosis. Therapeutic diagnostic paracentesis was advised however patient AMA. Suspect underlying portal hypertension nonalcoholic cirrhosis as a progression of his underlying inflammatory bowel disease no history of alcohol abuse. Current Visit: Yes Status: Acute Code(s): K74.60 - UNSPECIFIED CIRRHOSIS OF LIVER; R18.8 - OTHER ASCITES SNOMED Code(s): 80693885 (2) Ascites Current Visit: Yes Status: Acute Code(s): R18.8 - OTHER ASCITES SNOMED Code(s): 554739233 (3) Heroin addiction Current Visit: Yes Status: Acute Code(s): F11.20 - OPIOID DEPENDENCE, UNCOMPLICATED SNOMED Code(s): 779187697 (4) History of intravenous drug abuse Current Visit: Yes Status: Acute Code(s): F19.11 - OTHER PSYCHOACTIVE SUBSTANCE ABUSE, IN REMISSION SNOMED Code(s): 32596620153211689 (5) Portal vein thrombosis Current Visit: Yes Status: Acute Code(s): I81 - PORTAL VEIN THROMBOSIS SNOMED Code(s): 76511505 (6) Anemia Current Visit: No Status: Acute Code(s): D64.9 - ANEMIA, UNSPECIFIED SNOMED Code(s): 476830170 (7) Crohns disease Current Visit: No Status: Acute Code(s): K50.90 - CROHN'S DISEASE, UNSPECIFIED, WITHOUT COMPLICATIONS SNOMED Code(s): 86278412 (8) Iron deficiency anemia Current Visit: No Status: Acute Code(s): D50.9 - IRON DEFICIENCY ANEMIA, UNSPECIFIED SNOMED Code(s): 26096133 Plan: 1. Hematology consult. IV heparin. GI prophylaxis. Daily monitoring of CBC CMP PT/INR. Diagnostic therapeutic paracentesis tentatively scheduled for November 16. Anticoagulation on hold. Low-salt diet. Protein shake 3 times a day with meals. Aldactone 30 mg daily. Thank you for this kind referral and the opportunity to participate in the care of your patient. This consultation was discussed with Dr. Parmar. The impression and plan of care have been directed as dictated.
[2018-11-14 11:56] LABS: Anisocytosis Moderate; Basophils % (A) 0 %; Eosinophils # (A) 0.1 k/uL (0-0.7); Eosinophils % (A) 1 %; HCT 29.3 % (39.0-53.0); HGB 7.9 gm/dL (13.0-17.5); Hypochromasia Marked; Lymphocytes % (A) 12 %; MCH 18.9 pg (25.0-35.0); MCV 69.8 fL (80.0-100.0); Microcytosis Marked; Monocytes # (A) 0.4 k/uL (0-1.0); Monocytes % (A) 5 %; Neutrophils # (A) 6.8 k/uL (1.3-7.7); Neutrophils % (A) 81 %; Platelet Count 471 k/uL (150-450); Poikilocytosis Moderate; RDW 23.2 % (11.5-15.5); Reticulocyte % 2.2 % (0.5-2.0); WBC 8.4 k/uL (3.8-10.6)
[2018-11-14 12:16] LABS: ALT 19 U/L (21-72); AST 15 U/L (17-59); African American GFR (CKD) >90 (>60 ml/min/1.73 sqM); Albumin 2.1 g/dL (3.5-5.0); Alkaline Phosphatase 68 U/L (38-126); Anion Gap 4 mmol/L; Blood Urea Nitrogen 5 mg/dL (9-20); Calcium 7.7 mg/dL (8.4-10.2); Carbon Dioxide 23 mmol/L (22-30); Chloride 105 mmol/L (98-107); Glucose 92 mg/dL (74-99); LDH 430 U/L (313-618); Potassium 4.4 mmol/L (3.5-5.1); Sodium 132 mmol/L (137-145); Total Bilirubin 0.3 mg/dL (0.2-1.3); Total Protein 4.9 g/dL (6.3-8.2)
--- NOTE | 2018-11-14 12:55 | P.CONS ---
History of Present Illness - Reason for Consult Consult date: 11/14/18 Hx: DVT and PVT Requesting physician: Preet Cannon - Chief Complaint Abdominal Ascites - History of Present Illness Mr. Melchor is a 38-year-old male with a past medical history of DVT, Liver Cirrhosis, Crohns Disease, Portal Vein Thrombosis, Polysubstance Abuse. He presented to the emergency department with complaints of worsening abdominal ascites, increased shortness of breath and worsening fatigue. He has a assisted history of non-adherence. He was to follow-up with hematology regarding recurrent thrombus (2-lower extremity, and PVT) in June 2018 although did not show. He presented on October 31 this year for similiar complaints, at this time diagnosed with portal vein thrombus, although left aganinst medical advice. He was suppose to be on anticoagulation through the past 6 months and it is unknown if he was adherent to this. Therefore it is not clear if he developed the portal vein thrombus on anticoagualtion. He re-presented this admission as his abdominal ascites and BLE edema continued to worsen. He denies current drug or alcohol use. He did admit to using 6 days ago, heroin. Mother and Father at bedside and patient along with parents admit to him not taking his anticoagulation the way he should. Therefore I do not feel this is a failure of [employer] Review of Systems A 14 point Review assessed and completed and all negative except HPI Past Medical History Past Medical History: Asthma, Deep Vein Thrombosis (DVT), Pulmonary Embolus (PE) Additional Past Medical History / Comment(s): low BP, crohns, diarrhea, recent blood clot in left side of neck and PE ans is on lovenox ([facility] for 4-5 days) and got several blood transfusion while inpt History of Any Multi-Drug Resistant Organisms: None Reported Past Surgical History: Bowel Resection Additional Past Surgical History / Comment(s): colonoscopy, abscess lower left abdomen- drainage, port for TPN/later removed. Past Anesthesia/Blood Transfusion Reactions: No Reported Reaction Past Psychological History: No Psychological Hx Reported Smoking Status: Current every day smoker Past Alcohol Use History: None Reported Past Drug Use History: None Reported, Heroin - Past Family History Mother Family Medical History: No Reported History Medications and Allergies Home Medications Medication Instructions Recorded Confirmed Type Albuterol Inhaler [Ventolin Hfa 2 puff INHALATION RT-DAILY PRN 07/30/18 11/13/18 History Inhaler] Buprenorphine HCl/Naloxone HCl 1 film SL BID 07/30/18 11/13/18 History [Suboxone 8 mg-2 mg Sl Film] traZODone HCL 150 mg PO HS 07/30/18 11/13/18 History Apixaban [Eliquis] 5 mg PO BID 30 Days #60 tab 11/03/18 11/13/18 Rx Ranitidine HCl [Zantac] 75 mg PO HS PRN 11/03/18 11/13/18 History Spironolactone 50 mg PO DAILY 30 Days #30 tablet 11/03/18 11/13/18 Rx Allergies Allergy/AdvReac Type Severity Reaction Status Date / Time No Known Allergies Allergy Verified 11/13/18 21:29 Physical Exam Vitals: Vital Signs Temp Pulse Pulse Resp BP BP Pulse Ox 11/14/18 05:13 97.8 F 54 L 16 96/63 98 11/14/18 03:53 50 L 15 11/14/18 03:27 97.9 F 59 L 15 94/58 97 11/14/18 03:02 56 L 18 102/65 98 11/14/18 01:18 98 F 56 L 18 98/64 97 11/13/18 23:54 58 L 18 101/70 98 11/13/18 22:53 58 L 18 92/70 97 11/13/18 21:12 66 16 95/66 97 11/13/18 20:55 98.3 F 71 18 100/64 99 Intake and Output 11/13/18 11/14/18 11/14/18 22:59 06:59 14:59 Output Total 300 Balance -300 Output: Urine 300 Other: Voiding Method Toilet Weight 64.864 kg General: Alert and Oriented x3, No Acute Distress Head: Normocytic, Atraumatic Neck: Supple Mouth: No Lesions, No Thrush Eyes: Non-sclerotic No Palpable cervical, supraclavicular, axillary adenopathy Heart: Tachy Lungs: Increased effort and diminished bilateral bases Abdomen: Ascites Firm, Distended Extremities: BLE Edema 2-3+ Neurological: No Focal Defects: No sensory or motor deficits noted Psych: Calm and cooperative Results CBC & Chem 7: 11/14/18 11:35 11/14/18 11:35 Labs: Abnormal Lab Results - Last 24 Hours (Table) 11/13/18 11/13/18 11/14/18 Range/Units 22:30 22:30 02:10 RBC 3.97 L (4.30-5.90) m/uL Hgb 7.8 L (13.0-17.5) gm/dL Hct 28.4 L (39.0-53.0) % MCV 71.6 L (80.0-100.0) fL MCH 19.6 L (25.0-35.0) pg MCHC 27.4 L (31.0-37.0) g/dL RDW 22.2 H (11.5-15.5) % Sodium 133 L (137-145) mmol/L BUN 6 L (9-20) mg/dL Calcium 7.7 L (8.4-10.2) mg/dL AST 14 L (17-59) U/L ALT 20 L (21-72) U/L Total Protein 4.9 L (6.3-8.2) g/dL Albumin 2.1 L (3.5-5.0) g/dL Lipase 450 H (23-300) U/L Amorphous Sediment Rare H (None) /hpf Assessment and Plan Plan: Assessment and recommendations: Microcytic Anemia:Acute on Chronic - Multifactorial with component of Iron deficiency Anemia, Liver Disease, poss malnutrition - GI Evaluation is recommended - B12 and Folate levels, with known history rec daily B12 and Folic acid supp - Recheck Iron Panel and Ferritin, will likely benefit from Paarental Iron - Iron 10, Ferritin 8 - IV iron x5 Recurrent Thombolic Events: - Hx: Of Chronic DVT, Acute DVT RLE in July 2018 and October 2018 diagnosed with Portal Vein thrombus - Unclear if he was adherent to outpatient anticoagulation, history of non compliance - Prior appointments with hematology as outpatient, patient has not shown for. - Will check XA - Patient and family admitted there was times he was unable to fill. Therefore will retrial eliquis and confirm coverage prior to dischare Liver Cirrhosis: - GI is Following - Secondary to Crohns History Recurrent and worsening Abdominal Ascites: - Paracentesis ordered - Secondary Liver Cirrhosis Crohns Disease: - Not Adherent with medical recommendations.
[2018-11-14 13:12] LABS: Amylase 97 U/L (30-110); Lipase 353 U/L (23-300)
--- NOTE | 2018-11-14 13:59 | US ---
EXAMINATION TYPE: US venous doppler duplex LE DATE OF EXAM: 11/14/2018 1:37 PM COMPARISON: NONE CLINICAL HISTORY: re-assess progression of known DVT or new acute DV. SIDE PERFORMED: TECHNIQUE: The lower extremity deep venous system is examined utilizing real time linear array sonog luz with graded compression, doppler sonography and color-flow sonography. VESSELS IMAGED: External Iliac Vein (EIV) Common Femoral Vein Deep Femoral Vein Greater Saphenous Vein * Femoral Vein Popliteal Vein Small Saphenous Vein * Proximal Calf Veins (* superficial vessels) Right Leg: Internal echoes with thready flow and not fully compressible, chronic in appearance Left Leg: Appears negative for dvt IMPRESSION: 1. Probable chronic DVT right lower extremity. 2. No evidence of DVT left lower extremity.
[2018-11-14 17:10] LABS: Iron Saturation 3.95 (15.00-50.00)
[2018-11-14 17:15] LABS: Folate, Serum 12.2 ng/mL
[2018-11-14] MEDS ORDERED: HEPARIN SODIUM,PORCINE 5,000 UNIT/ML 1 ML VIAL IV STA (18:58)
[2018-11-14] MEDS: SODIUM FERRIC GLUCONAT-SUCROSE 125 MG in SODIUM CHLORIDE 0.9% 100 ML IVPB SCH (21:57)
[2018-11-14] MEDS: traZODone HCL 50 MG TAB PO SCH (22:49)
[2018-11-15] MEDS ORDERED: HEPARIN SODIUM,PORCINE 5,000 UNIT/ML 1 ML VIAL IV STA ×3 (01:58→20:37)
[2018-11-15] MEDS: MORPHINE SULFATE 2 MG/ML SYRINGE IVP PRN ×6 (02:36→23:04)
[2018-11-15] MEDS: NICOTINE 21MG/24HR PATCH TRANSDERM SCH (07:52)
[2018-11-15] MEDS: SPIRONOLACTONE 25 MG TAB PO SCH (07:52)
[2018-11-15] MEDS: HEPARIN SOD,PORK IN 0.45% NACL 25,000 UNIT in 0.45% NACL 1 250ML.BAG IV SCH (13:09)
--- NOTE | 2018-11-15 16:17 | P.PN ---
Subjective Progress Note Date: 11/15/18 Pt. reports that he is doing better with his abdominal pain improving and able to tolerate liquids well. Pt's lathergy is resolved and his SOB is improving too. On review of labs it was noted that pt's LIPASE is slightly better. Pt's ELIQUIS is held and he is placed on I/V Heparin with APTT protocol in prep for possible paracenthesis in the morning by I.R. as recs per G.I. Pt. denies CP, SOB worsening, Palpitations, Diaphoresis, Dizziness, BARBER, F/C, N/V/D and denies rest of the ROS. Objective - Vital Signs Vital signs: Vital Signs Temp 97.5 F L 11/15/18 11:32 Pulse 65 11/15/18 11:32 Resp 16 11/15/18 11:32 BP 93/51 11/15/18 11:32 Pulse Ox 98 11/15/18 11:32 Intake & Output 11/14/18 11/15/18 11/15/18 18:59 06:59 18:59 Intake Total 600 724.457 355.543 Output Total 300 300 Balance 600 424.457 55.543 Intake: Intake, IV Titration 134.457 115.543 Amount Heparin Sod,Pork in 0.45% 134.457 115.543 NaCl 25,000 unit In 0.45 % NaCl 1 250ml.bag @ 12 UNITS/KG/HR 7.784 mls/hr IV .Q24H [facility] Rx#: [id number] Oral 600 590 240 Output: Urine 300 300 Other: Voiding Method Toilet Toilet Toilet # Voids 1 3 3 # Bowel Movements 1 - Constitutional General appearance: Present: cooperative, no acute distress - EENT Eyes: Present: EOMI, normal appearance ENT: Present: hearing grossly normal - Neck Neck: Present: normal ROM. Absent: lymphadenopathy, rigidity - Respiratory Respiratory: bilateral: CTA (no wheezes/ronchi/crackles heared.) - Cardiovascular Rhythm: regular Heart sounds: normal: S1, S2 - Gastrointestinal Gastrointestinal Comment(s): Mild epigastric tenderness noted without guarding or rebound. General gastrointestinal: Present: distended, normal bowel sounds, soft. Absent: rigid - Neurologic Neurologic: Present: CNII-XII intact. Absent: focal deficits - Psychiatric Psychiatric: Present: A&O x's 3, appropriate affect, intact judgment & insight - Allied health notes Allied health notes reviewed: nursing - Labs CBC & Chem 7: 11/14/18 11:35 11/14/18 11:35 Labs: Abnormal Lab Results - Last 24 Hours (Table) 11/14/18 11/15/18 11/15/18 Range/Units 11:35 00:00 07:59 APTT 38.2 H 43.4 H (22.0-30.0) sec Iron 10 L (65-175) ug/dL Iron Saturation 3.95 L (15.00-50.00) Ferritin 8.0 L (22.0-322.0) ng/mL Assessment and Plan (1) Ascites Current Visit: Yes Status: Acute Priority: High Code(s): R18.8 - OTHER ASCITES SNOMED Code(s): 466146174 (2) Cirrhosis of liver with ascites Current Visit: Yes Status: Acute Priority: High Code(s): K74.60 - UNSPECIFIED CIRRHOSIS OF LIVER; R18.8 - OTHER ASCITES SNOMED Code(s): 91993248 (3) Heroin addiction Current Visit: Yes Status: Acute Priority: Medium Code(s): F11.20 - OPIOID DEPENDENCE, UNCOMPLICATED SNOMED Code(s): 086515232 (4) Portal vein thrombosis Current Visit: Yes Status: Acute Priority: High Code(s): I81 - PORTAL VEIN THROMBOSIS SNOMED Code(s): 54261946 (5) Anemia Current Visit: Yes Status: Acute Priority: High Code(s): D64.9 - ANEMIA, UNSPECIFIED SNOMED Code(s): 538725559 (6) Chronic anticoagulation Current Visit: Yes Status: Acute Priority: High Code(s): Z79.01 - LONG-TERM (CURRENT) USE OF ANTICOAGULANTS SNOMED Code(s): 455346228 (7) Moderate protein-energy malnutrition Current Visit: Yes Status: Acute Priority: Medium Code(s): E44.0 - MODERATE PROTEIN-CALORIE MALNUTRITION SNOMED Code(s): 835863618 (8) Pancreatitis Current Visit: Yes Status: Acute Priority: High Code(s): K85.90 - ACUTE PANCREATITIS WITHOUT NECROSIS OR INFECTION, UNSP SNOMED Code(s): 48273448 Plan: Pt. will be continue don current management, will consult I.R. for possible para (diagnostic/Therapeutic) in the morning, will continue I/V Heparin, will make pt. NPO post midnight, will hold I/V Heparin per recs from I.R. performing the procedure. I will check AMMONIA level as pt. was lathergic at presentation and we have no levels available in face of Cirrhosis of liver. Lipase improving, will continue to advance diet as tolerated. Discharge planning post procedure and pt's condition at that point in time. Pt. has low BP but was able to walk to the rest room without difficulty or symptoms. Time with Patient: Less than 30
--- NOTE | 2018-11-15 19:32 | P.PN ---
Subjective Progress Note Date: 11/15/18 Principal diagnosis: Crohn's disease, iron deficiency anemia, ascites Patient seen lying in bed. He reports that abdominal distention is less and he feels less distended and pain in his abdomen. Also reporting improved breathing. Tolerating diet. Bowel movements are at baseline and reported as frequent, nonbloody and loose. Objective - Vital Signs Vital signs: Vital Signs Temp 97.5 F L 11/15/18 11:32 Pulse 65 11/15/18 15:59 Resp 16 11/15/18 15:59 BP 93/51 11/15/18 11:32 Pulse Ox 98 11/15/18 11:32 Intake & Output 11/15/18 11/15/18 11/16/18 06:59 18:59 06:59 Intake Total 724.457 355.543 Output Total 300 300 Balance 424.457 55.543 Intake: Intake, IV Titration 134.457 115.543 Amount Heparin Sod,Pork in 0.45% 134.457 115.543 NaCl 25,000 unit In 0.45 % NaCl 1 250ml.bag @ 12 UNITS/KG/HR 7.784 mls/hr IV .Q24H [facility] Rx#: [id number] Oral 590 240 Output: Urine 300 300 Other: Voiding Method Toilet Toilet # Voids 3 3 # Bowel Movements 1 - Exam On physical examination, patient appears comfortable in no apparent distress. HEAD: Normocephalic, atraumatic. EYES: No scleral icterus. No conjunctival injection. MOUTH: No lesions, tongue midline. NECK: Trachea midline, no gross abnormalities. CHEST: Clear to auscultation with no wheezing or rhonchi appreciated. HEART: Regular rate and rhythm. ABDOMEN: Soft, thin part abdomen is distended with positive fluid wave. Bowel sounds are positive. No organomegaly. No guarding or rigidity. EXTREMITIES: Bilateral pedal edema. SKIN: No rashes, no jaundice. NEUROLOGIC: Alert and oriented x3. No focal deficits. - Labs CBC & Chem 7: 11/14/18 11:35 11/14/18 11:35 Labs: Abnormal Lab Results - Last 24 Hours (Table) 11/15/18 11/15/18 Range/Units 00:00 07:59 APTT 38.2 H 43.4 H (22.0-30.0) sec Assessment and Plan (1) Ascites Narrative/Plan: 38-year-old gentleman with a medical history significant for juvenile processes, thromboembolic disease maintained on anticoagulation, intravenous drug abuse with recent heroin use 6 days ago and a history of medical noncompliance. He presented to the hospital with increasing abdominal distention and ascites. Imaging and lab evaluation is suggestive of cirrhosis, however this is not biopsy proven. Plan is for paracentesis with fluid studies to help clarify etiology of his ascites. Current Visit: Yes Status: Acute Priority: High Code(s): R18.8 - OTHER ASCITES SNOMED Code(s): 980812071 (2) Abdominal distention Current Visit: Yes Status: Acute Code(s): R14.0 - ABDOMINAL DISTENSION (GASEOUS) SNOMED Code(s): 90514030 (3) Crohns disease Narrative/Plan: History of Crohn's ileitis diagnosed at the age of 14 requiring 2 bowel resections in the past for obstruction. Patient has not been on any consistent treatments for the past 12 years due to medical noncompliance. Recently hospitalized with an exacerbation of symptoms and treated with steroids. Current Visit: No Status: Acute Code(s): K50.90 - CROHN'S DISEASE, UN SPECIFIED, WITHOUT COMPLICATIONS SNOMED Code(s): 19395477 (4) Iron deficiency anemia Current Visit: No Status: Acute Code(s): D50.9 - IRON DEFICIENCY ANEMIA, UNSPECIFIED SNOMED Code(s): 44694419 Plan: Supportive care Low-sodium diet Dietary supplement ordered Extensive discussion on the need for continued abstinence from IV drug use Current anticoagulation with heparin drip Tentative plan for paracentesis Fluid studies for paracentesis ordered to help clarify etiology of the ascites, suspicion is for possible cirrhosis given lab and imaging studies to date Hematology following Patient will need close follow-up for both management of IBD and other comorbidities after discharge Thank you for allowing us participate in the care of this patient we will continue to follow
[2018-11-15] MEDS: SODIUM FERRIC GLUCONAT-SUCROSE 125 MG in SODIUM CHLORIDE 0.9% 100 ML IVPB SCH (20:12)
[2018-11-15] MEDS: traZODone HCL 50 MG TAB PO SCH (23:04)
[2018-11-16] MEDS: MORPHINE SULFATE 2 MG/ML SYRINGE IVP PRN ×6 (02:56→22:45)
[2018-11-16] MEDS: HEPARIN SOD,PORK IN 0.45% NACL 25,000 UNIT in 0.45% NACL 1 250ML.BAG IV SCH (04:54)
[2018-11-16] MEDS: SPIRONOLACTONE 25 MG TAB PO SCH (08:52)
[2018-11-16] MEDS: NICOTINE 21MG/24HR PATCH TRANSDERM SCH (08:53)
[2018-11-16 09:37] LABS: INR 1.1 (<1.2); Partial Thromboplastin Time 47.6 sec (22.0-30.0); Prothrombin Time 11.5 sec (9.0-12.0)
--- NOTE | 2018-11-16 09:48 | P.PN ---
Subjective Progress Note Date: 11/16/18 Pt. reports doing better without Nausea or Abdominal pain, was tolerating full liquid diet well but now NPO for his procedure today. Care coordinated with the nurse who reported that she has held his I/V Heparin and will hold for FOUR hours prior to the procedure. Nurse reported that I.R. will make place for his procedure today. Pt. denies CP, Palpitations, Dizziness, Diaphoresis, N/V/D, F/C and denies rest of the ROS. Objective - Vital Signs Vital signs: Vital Signs Temp 97.7 F 11/16/18 05:31 Pulse 56 L 11/16/18 05:31 Resp 18 11/16/18 05:31 BP 92/56 11/16/18 05:31 Pulse Ox 98 11/16/18 05:31 Intake & Output 11/15/18 11/16/18 11/16/18 18:59 06:59 18:59 Intake Total 355.543 311.433 48.218 Output Total 300 Balance 55.543 311.433 48.218 Intake: Intake, IV Titration 115.543 311.433 48.218 Amount Heparin Sod,Pork in 0.45% 115.543 211.433 48.218 NaCl 25,000 unit In 0.45 % NaCl 1 250ml.bag @ 12 UNITS/KG/HR 7.784 mls/hr IV .Q24H [facility] Rx#: [id number] Sodium Ferric Gluconat- 100 Sucrose 125 mg In Sodium Chloride 0.9% 100 ml @ 100 mls/hr IVPB Q24H [facility] Rx#:[id number] Oral 240 Output: Urine 300 Other: Voiding Method Toilet Toilet Urinal # Voids 3 1 # Bowel Movements 1 - EENT Eyes: Present: EOMI, normal appearance ENT: Present: hearing grossly normal - Neck Neck: Present: normal ROM. Absent: lymphadenopathy - Respiratory Respiratory: bilateral: CTA (no wheezes, crackles or ronchi heared.) - Cardiovascular Rhythm: regular Heart sounds: normal: S1, S2 Abnormal Heart Sounds: Absent: systolic murmur, diastolic murmur, S3 Gallop, S4 Gallop - Gastrointestinal General gastrointestinal: Present: normal bowel sounds, soft. Absent: distended, rigid, tenderness - Neurologic Neurologic: Present: CNII-XII intact, focal deficits - Psychiatric Psychiatric: Present: A&O x's 3, appropriate affect, intact judgment & insight - Allied health notes Allied health notes reviewed: nursing - Labs CBC & Chem 7: 11/14/18 11:35 11/14/18 11:35 Labs: Abnormal Lab Results - Last 24 Hours (Table) 11/15/18 11/16/18 11/16/18 Range/Units 19:55 01:38 08:52 APTT 44.9 H 151.5 H* 47.6 H (22.0-30.0) sec Assessment and Plan (1) Ascites Current Visit: Yes Status: Acute Priority: High Code(s): R18.8 - OTHER ASCITES SNOMED Code(s): 501947893 (2) Cirrhosis of liver with ascites Current Visit: Yes Status: Acute Priority: High Code(s): K74.60 - UNSPECIFIED CIRRHOSIS OF LIVER; R18.8 - OTHER ASCITES SNOMED Code(s): 94720771 (3) Heroin addiction Current Visit: Yes Status: Acute Priority: Medium Code(s): F11.20 - OPIOID DEPENDENCE, UNCOMPLICATED SNOMED Code(s): 858052004 (4) Portal vein thrombosis Current Visit: Yes Status: Acute Priority: High Code(s): I81 - PORTAL VEIN THROMBOSIS SNOMED Code(s): 31895053 (5) Anemia Current Visit: Yes Status: Acute Priority: High Code(s): D64.9 - ANEMIA, UNSPECIFIED SNOMED Code(s): 548041629 (6) Chronic anticoagulation Current Visit: Yes Status: Acute Priority: High Code(s): Z79.01 - INTELLIGENT SYSTEMS ENGINEER (CURRENT) USE OF ANTICOAGULANTS SNOMED Code(s): 199388840 (7) Moderate protein-energy malnutrition Current Visit: Yes Status: Acute Priority: Medium Code(s): E44.0 - MODERATE PROTEIN-CALORIE MALNUTRITION SNOMED Code(s): 003503361 (8) Pancreatitis Current Visit: Yes Status: Acute Priority: High Code(s): K85.90 - ACUTE PANCREATITIS WITHOUT NECROSIS OR INFECTION, UNSP SNOMED Code(s): 53291802 Plan: Paracentesis today, will resume diet post procedure as per protocol and will advance as tolerated. If pt. remains clinically stable without worsening of pancreatitis pain on advancing diet, will resume his Eliquis from tonight and will plan for d/c home in the morning, provided he remains stable. Time with Patient: Less than 30
--- NOTE | 2018-11-16 15:37 | US ---
Therapeutic paracentesis. DATE OF EXAM: 11/16/2018 CLINICAL HISTORY: Ascites The procedure was discussed with the patient. The risks, complications, benefits, and alternatives we re discussed and any questions were answered. Informed consent was obtained. The patient was placed s upine on the ultrasound table and prepped and draped in the usual sterile fashion. All elements of maximal barrier technique were utilized. Under ultrasound guidance, access into the right lower quadrant was obtained, via the paracentesis catheter system and direct ultrasound guidanc e. Approximately 2.5 liters of straw-colored fluid was removed. The patient was stable throughout the pr ocedure and remained stable upon discharge from Department of Radiology. IMPRESSION: Successful therapeutic paracentesis under ultrasound guidance.
[2018-11-16 17:01] LABS: Appearance,BF Hazy; Color,BF Colorless; Nucleated Cells, Body Fluid 22 /uL; RBC, Body Fluid 8 /uL
[2018-11-16 17:15] LABS: Mononuclear WBC,Body Fluid 75 %; Polynuclear WBC,Body Fluid 25 %; Total Cells Counted,Body Fluid 100
[2018-11-16 19:27] LABS: Total Protein, Body Fluid 1143 mg/dL
[2018-11-16] MEDS: SODIUM FERRIC GLUCONAT-SUCROSE 125 MG in SODIUM CHLORIDE 0.9% 100 ML IVPB SCH (20:24)
[2018-11-16] MEDS: APIXABAN 5 MG TAB PO SCH (20:25)
--- NOTE | 2018-11-16 22:06 | P.PN ---
Subjective Progress Note Date: 11/16/18 Principal diagnosis: Crohn's disease, iron deficiency anemia, ascites Patient seen lying in bed. Tolerating his diet. Abdominal pain greatly improved after paracentesis. Still reporting to loose frequent bowel movements. Objective - Vital Signs Vital signs: Vital Signs Temp 98.3 F 11/16/18 20:17 Pulse 66 11/16/18 20:17 Resp 18 11/16/18 20:17 BP 96/53 11/16/18 20:17 Pulse Ox 99 11/16/18 20:17 Intake & Output 11/16/18 11/16/18 11/17/18 06:59 18:59 06:59 Intake Total 311.433 48.218 0 Output Total 400 Balance 311.433 -351.782 0 Intake: Intake, IV Titration 311.433 48.218 0 Amount Heparin Sod,Pork in 0.45% 211.433 48.218 0 NaCl 25,000 unit In 0.45 % NaCl 1 250ml.bag @ 12 UNITS/KG/HR 7.784 mls/hr IV .Q24H [facility] Rx#: [id number] Sodium Ferric Gluconat- 100 Sucrose 125 mg In Sodium Chloride 0.9% 100 ml @ 100 mls/hr IVPB Q24H [facility] Rx#:[id number] Output: Urine 400 Other: Voiding Method Toilet Toilet Urinal Urinal # Voids 1 1 - Exam On physical examination, patient appears comfortable in no apparent distress. HEAD: Normocephalic, atraumatic. EYES: No scleral icterus. No conjunctival injection. MOUTH: No lesions, tongue midline. NECK: Trachea midline, no gross abnormalities. CHEST: Clear to auscultation with no wheezing or rhonchi appreciated. HEART: Regular rate and rhythm. ABDOMEN: Soft, thin and markedly less distended after paracentesis. Bowel sounds are positive. No organomegaly. No guarding or rigidity. EXTREMITIES: Bilateral pedal edema. SKIN: No rashes, no jaundice. NEUROLOGIC: Alert and oriented x3. No focal deficits. - Labs CBC & Chem 7: 11/14/18 11:35 11/14/18 11:35 Labs: Abnormal Lab Results - Last 24 Hours (Table) 11/16/18 11/16/18 11/16/18 Range/Units 01:38 08:52 08:52 APTT 151.5 H* 47.6 H (22.0-30.0) sec Albumin 2.1 L (3.5-5.0) g/dL Assessment and Plan (1) Ascites Narrative/Plan: 38-year-old gentleman with a medical history significant for juvenile processes, thromboembolic disease maintained on anticoagulation, intravenous drug abuse with recent heroin use 6 days ago and a history of medical noncompliance. He p resented to the hospital with increasing abdominal distention and ascites. Imaging and lab evaluation is suggestive of cirrhosis with a ascitic fluid analysis consistent with liver source of the ascites with SAAG greater than 1.1 with protein less than 2.5, however cirrhosis is not biopsy proven. Current Visit: Yes Status: Acute Priority: High Code(s): R18.8 - OTHER ASCITES SNOMED Code(s): 884101264 (2) Abdominal distention Current Visit: Yes Status: Acute Code(s): R14.0 - ABDOMINAL DISTENSION (GASEOUS) SNOMED Code(s): 68350115 (3) Crohns disease Narrative/Plan: History of Crohn's ileitis diagnosed at the age of 14 requiring 2 bowel resections in the past for obstruction. Patient has not been on any consistent treatments for the past 12 years due to medical noncompliance. Recently hosp italized with an exacerbation of symptoms and treated with steroids. Current Visit: No Status: Acute Code(s): K50.90 - CROHN'S DISEASE, UNSPECIFIED, WITHOUT COMPLICATIONS SNOMED Code(s): 02887050 (4) Iron deficiency anemia Current Visit: No Status: Acute Code(s): D50.9 - IRON DEFICIENCY ANEMIA, U NSPECIFIED SNOMED Code(s): 43002844 Plan: Supportive care Low-sodium diet Dietary supplement ordered Extensive discussion on the need for continued abstinence from IV drug use Okay to continue anticoagulation Status post paracentesis with fluid analysis consistent with cirrhosis/liver as cause of the ascites, with no evidence of SBP Hematology following Patient will need close follow-up for both management of IBD and other comorbidities after discharge Thank you for allowing us participate in the care of this patient we will continue to follow
[2018-11-16] MEDS: traZODone HCL 50 MG TAB PO SCH (22:46)
[2018-11-17] MEDS: MORPHINE SULFATE 2 MG/ML SYRINGE IVP PRN ×3 (03:17→12:21)
[2018-11-17 05:28] VITALS: PULSE 59; TEMP 97.9
[2018-11-17] MEDS: NICOTINE 21MG/24HR PATCH TRANSDERM SCH (08:06)
[2018-11-17] MEDS: SPIRONOLACTONE 25 MG TAB PO SCH (08:07)
[2018-11-17] MEDS: APIXABAN 5 MG TAB PO SCH (08:07)
[2018-11-17] MEDS ORDERED: SODIUM FERRIC GLUCONAT-SUCROSE 125 MG in SODIUM CHLORIDE 0.9% 100 ML IVPB SCH (09:00)
[2018-11-17 12:23] VITALS: BP 103/66; RESP 17
--- NOTE | 2018-11-17 17:57 | P.DS ---
Providers Date of admission: 11/16/18 15:36 Expected date of discharge: 11/17/18 Attending physician: Jolanta Mayen MD Consults: 11/14/18 02:03 Consult Physician Urgent Consulting Provider: Dipak Parmar Consult Reason/Comments: Ascites, cirrhosis, portal vein thrombosis, requiring paracentesis Do you want consulting provider notified?: Yes 11/14/18 07:26 Consult Physician Routine Consulting Provider: Gab Lennon Consult Reason/Comments: dvt on doac , liver cirrhosis w ascites requiring Do you want consulting provider notified?: Yes Primary care physician: Chuck Talbot [facility] Course: Discharge Diagnosis: Portal Vein thrombosis Decompensated cirrhosis Iron deficiency anemia Hyponatremia Crohn's disease IV drug abuse Chronic anticoagulation Hypoalbuminemia secondary to liver disease, not reflective of protein calorie malnutrition Hospital Course: Patient is a 38-year-old male with a 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 Patient was admitted here from 10/31 through 11/03. At that point in time he was diagnosed with portal vein thrombosis and started on eliquis. He was due to undergo a diagnostic and therapeutic paracentesis however he left AGAINST MEDICAL ADVICE. He re- presented with worsening abdominal pain. In the ER he underwent an extensive evaluation. His initial vital signs were within normal limits. Initial laboratory analysis demonstrated anemia with hemoglobin 7.8, sodium 133, AST 14, ALT 20, albumin 2.1, lipase 450. He was admitted for further monitoring and paracentesis. Abdominal ultrasound showed nonocclusive thrombus in the portal vein, large amount of ascites, and prominent gallbladder. GI was consulted who again recommended paracentesis and further outpatient management. He was also seen by hematology oncology who felt this was not an eliquis failure as prior to last admission he had not been compliant with this medication. He underwent a paracentesis on 11/16 with removal of 2.5 L of fluid. This was consistent with cirrhosis, however his cirrhosis is not biopsy-proven. He was restarted on eloquent. He was determined stable for discharge. He was also noted to have severe iron deficiency anemia with ferritin of 8 by hematology. He was given 2 doses of IV iron during his hospitalization. He will need close follow-up he has an appointment with Dr. Parmar on December 11, He will follow with Dr. Medina in the clinic in 2 weeks. He will follow-up with Dr. Talbot next week. I have lasix to his spironolactone to see if that will help decrease his ascities while avoid need paracentesisi. He was given instructions to repeat BMP in 1 week with results to Dr. Parmar and Dr. Talbot. He was again instructed on the importa nce of abstaining from illicit drugs, keeping his follow-up appointments, and taking all medications as prescribed. Patient seen and examined at bedside. No chest pain, SOB, or abdominal pain, lower extremity edema greatly improved. Vital signs reviewed and stable. General: non toxic, no distress, appears at stated age, think Derm: warm, dry Head: atraumatic, normocephalic, symmetric Eyes: EOMI, no lid lag, anicteric sclera Mouth: no lip lesion, mucus membranes moist Cardiovascular: S1S2 reg, no murmur, positive posterior tibial pulse bilateral, Lungs: CTA bilateral, no rhonchi, no rales , no accessory muscle use Abdominal: soft, nontender to palpation, no guarding, no appreciable organomegaly Ext: no gross muscle atrophy, no edema, no contractures Neuro: CN II-XI grossly intact, no focal neuro deficits Psych: Alert, oriented, appropriate affect A total of 35 minutes of time were spent preparing this complex discharge summary . Pertinent Studies: Abdominal ultrasound - nonocclusive thrombus in the portal vein, large amount of ascites, and prominent gallbladder. Lower extemity doppler- No acute DVT left, chronic DVT right LE Patient Condition at Discharge: Stable Plan - Discharge Summary New Discharge Prescriptions: New Furosemide [Lasix] 40 mg PO DAILY #30 tablet Continue traZODone HCL 150 mg PO HS Buprenorphine HCl/Naloxone HCl [Suboxone 8 mg-2 mg Sl Film] 1 film SL BID Albuterol Inhaler [Ventolin Hfa Inhaler] 2 puff INHALATION RT-DAILY PRN PRN Reason: Shortness Of Breath Ranitidine HCl [Zantac] 75 mg PO HS PRN PRN Reason: Heartburn Apixaban [Eliquis] 5 mg PO BID 30 Days #60 tab Spironolactone 50 mg PO DAILY 30 Days #30 tablet Discharge Medication List Albuterol Inhaler [Ventolin Hfa Inhaler] 2 puff INHALATION RT-DAILY PRN 07/30/18 [History] Buprenorphine HCl/Naloxone HCl [Suboxone 8 mg-2 mg Sl Film] 1 film SL BID 07/30/18 [History] traZODone HCL 150 mg PO HS 07/30/18 [History] Apixaban [Eliquis] 5 mg PO BID 30 Days #60 tab 11/03/18 [Rx] Ranitidine HCl [Zantac] 75 mg PO HS PRN 11/03/18 [History] Spironolactone 50 mg PO DAILY 30 Days #30 tablet 11/03/18 [Rx] Furosemide [Lasix] 40 mg PO DAILY #30 tablet 11/17/18 [Rx] Follow up Appointment(s)/Referral(s): Gab Lennon MD [STAFF PHYSICIAN] - 2 Weeks (Patient to contact office on Monday morning for follow-up appt. ) Chuck Talbot MD [Primary Care Provider] - 1-2 days (Office currently closed. Patient to make own follow-up appt. ) Dipak Parmar MD [STAFF PHYSICIAN] - 2 Weeks (Office currently closed. Patient to make own follow-up appt. ) Ambulatory/Diagnostic Orders: Comprehensive Metabolic Panel [LAB.AMB] Time Frame: 1 Week, Location: None Selected Patient Instructions/Handouts: Furosemide (By mouth), Cirrhosis (GEN), Ascites (GEN), Low-Sodium Diet (DC), Opioid Use Disorder (DC) Activity/Diet/Wound Care/Special Instructions: Diet: low sodium 2 gram Activity: as tolerated Abstain from illicit drugs Discharge Disposition: HOME SELF-CARE
[2018-11-19 10:24] LABS: Albumin, Fluid Source Ascites
== END 2018-11-17 14:23 | disposition home or self-care (01) | DRG 432 ==
LOC: EC 20:44 → 3NMEDONC 11-14 01:15 → INTOOBSV 11-14 01:15 → OBSVTOIN 11-16 15:36
PROVIDERS: ADMIT Internal Medicine; ATTEND Internal Medicine
PROC: 0W9G3ZZ Drainage of Peritoneal Cavity, Percutaneous Approach (ICD-10-PCS; principal; 2018-11-16)
DX: K74.60 Unspecified cirrhosis of liver (principal); I81 Portal vein thrombosis; K85.90 Acute pancreatitis without necrosis or infection, unspecified; R18.8 Other ascites; E87.1 Hypo-osmolality and hyponatremia; K50.00 Crohn's disease of small intestine without complications; R64 Cachexia; K76.6 Portal hypertension; I45.10 Unspecified right bundle-branch block; J45.909 Unspecified asthma, uncomplicated; R26.2 Difficulty in walking, not elsewhere classified; Z68.22 Body mass index [BMI] 22.0-22.9, adult; D50.9 Iron deficiency anemia, unspecified; F11.21 Opioid dependence, in remission; F17.200 Nicotine dependence, unspecified, uncomplicated; Z71.6 Tobacco abuse counseling; Z79.01 Long term (current) use of anticoagulants; Z91.19 Patient's noncompliance with other medical treatment and regimen; Z79.899 Other long term (current) drug therapy; Z86.718 Personal history of other venous thrombosis and embolism; Z86.711 Personal history of pulmonary embolism; Z90.49 Acquired absence of other specified parts of digestive tract
CPT/HCPCS: 36415; 49083; 76705; 80053; 81001; 82040; 82042; 82140; 82150; 82607; 82728; 82746; 83540; 83550; 83605; 83615; 83690; 83921; 84157; 85025; 85045; 85260; 85610; 85730; 89050; 93005; 93970; 96374; 96376; 99285

== ENCOUNTER 2018-11-21 19:26 | Observation (INO) | payer OTHER ==
[2018-11-21] MEDS ORDERED: SODIUM CHLORIDE 0.9% 1,000 ML IV STA ×2 (19:49)
--- NOTE | 2018-11-21 19:54 | ED ---
Abdominal Pain HPI - General Chief Complaint: Abdominal Pain Stated Complaint: crohn's Time Seen by Provider: 11/21/18 19:42 Source: patient, RN notes reviewed, old records reviewed Mode of arrival: wheelchair Limitations: no limitations - History of Present Illness Initial Comments: This is a 30-year-old male the ER for evaluation. Patient resents today for evaluation regards to abdominal pain weakness not feeling well weight loss decreased appetite. Patient has recent history of cirrhosis diagnosis, patient also has known Crohn's disease. Patient has persistent nausea vomiting and no appetite. No fevers. Also complaining of severe pain diffuse body pain and abdominal pain MD Complaint: abdominal pain -: week(s) Location: diffuse Radiation: none Migration to: no migration Severity: moderate Severity scale (1-10): 6 Quality: cramping Consistency: constant Improves With: nothing Worsens With: nothing, eating Associated Symptoms: nausea, vomiting, diarrhea - Related Data Home Medications Medication Instructions Recorded Confirmed Albuterol Inhaler [Ventolin Hfa 2 puff INHALATION RT-DAILY PRN 07/30/18 11/21/18 Inhaler] Buprenorphine HCl/Naloxone HCl 1 film SL BID 07/30/18 11/21/18 [Suboxone 8 mg-2 mg Sl Film] traZODone HCL 150 mg PO HS 07/30/18 11/21/18 Ranitidine HCl [Zantac] 75 mg PO HS 11/03/18 11/21/18 Ensure 1 can PO DIRECTED 11/21/18 11/21/18 Previous Rx's Medication Instructions Recorded Apixaban [Eliquis] 5 mg PO BID 30 Days #60 tab 11/03/18 Spironolactone 50 mg PO DAILY 30 Days #30 tablet 11/03/18 Ferrous Sulfate [Feosol] 325 mg PO BID #60 tab 11/17/18 Furosemide [Lasix] 40 mg PO DAILY #30 tablet 11/17/18 Allergies Allergy/AdvReac Type Severity Reaction Status Date / Time No Known Allergies Allergy Verified 11/21/18 20:03 Review of Systems ROS Statement: Those systems with pertinent positive or pertinent negative responses have been documented in the HPI. ROS Other: All systems not noted in ROS Statement are negative. Past Medical History Past Medical History: Asthma, Deep Vein Thrombosis (DVT), Pulmonary Embolus (PE) Additional Past Medical History / Comment(s): low BP, crohns, diarrhea, recent blood clot in left side of neck and PE ans is on lovenox ([facility] for 4-5 days) and got several blood transfusion while inpt History of Any Multi-Drug Resistant Organisms: None Reported Past Surgical History: Bowel Resection Additional Past Surgical History / Comment(s): colonoscopy, abscess lower left abdomen- drainage, port for TPN/later removed. Past Anesthesia/Blood Transfusion Reactions: No Reported Reaction Past Psychological History: No Psychological Hx Reported Smoking Status: Current every day smoker Past Alcohol Use History: None Reported Past Drug Use History: None Reported, Heroin - Past Family History Mother Family Medical History: No Reported History General Exam Limitations: no limitations General appearance: alert, in no apparent distress Head exam: Present: atraumatic, normocephalic, normal inspection Eye exam: Present: normal appearance, PERRL, EOMI. Absent: scleral icterus, conjunctival injection, periorbital swelling ENT exam: Present: normal exam, mucous membranes moist Neck exam: Present: normal inspection. Absent: tenderness, meningismus, lymphadenopathy Respiratory exam: Present: normal lung sounds bilaterally. Absent: respiratory distress, wheezes, rales, rhonchi, stridor Cardiovascular Exam: Present: normal rhythm, tachycardia, normal heart sounds. Absent: systolic murmur, diastolic murmur, rubs, gallop, clicks GI/Abdominal exam: Present: soft, normal bowel sounds. Absent: distended, tenderness, guarding, rebound, rigid Extremities exam: Present: normal inspection, full ROM, normal capillary refill. Absent: tenderness, pedal edema, joint swelling, calf tenderness Back exam: Present: normal inspection Neurological exam: Present: alert, oriented X3, CN II-XII intact Psychiatric exam: Present: normal affect, normal mood Skin exam: Present: warm, dry, intact, normal color. Absent: rash Course Vital Signs 11/21/18 11/21/18 19:34 20:47 Temperature 98.6 F Pulse Rate 113 H 89 Respiratory 20 18 Rate Blood Pressure 94/62 90/70 O2 Sat by Pulse 100 99 Oximetry - Reevaluation(s) Reevaluation #1: 11/21/18 21:35 Medical record is reviewed Reevaluation #2: 11/21/18 21:35 Pain is controlled Medical Decision Making - Medical Decision Making 30 male the ER for evaluation will admit for continued pain control symptom management GI evaluation - Lab Data Result diagrams: 11/21/18 20:30 11/21/18 20:30 Lab Results 11/21/18 11/21/18 11/21/18 Range/Units 20:30 20:30 20:30 WBC 8.8 (3.8-10.6) k/uL RBC 4.59 (4.30-5.90) m/uL Hgb 9.6 L D (13.0-17.5) gm/dL Hct 33.7 L (39.0-53.0) % MCV 73.5 L (80.0-100.0) fL MCH 21.0 L (25.0-35.0) pg MCHC 28.6 L (31.0-37.0) g/dL RDW 24.6 H (11.5-15.5) % Plt Count 448 (150-450) k/uL Neutrophils % 76 % Lymphocytes % 14 % Monocytes % 7 % Eosinophils % 1 % Basophils % 1 % Neutrophils # 6.7 (1.3-7.7) k/uL Lymphocytes # 1.3 (1.0-4.8) k/uL Monocytes # 0.6 (0-1.0) k/uL Eosinophils # 0.1 (0-0.7) k/uL Basophils # 0.1 (0-0.2) k/uL Hypochromasia Marked Poikilocytosis Moderate Anisocytosis Marked Microcytosis Marked Sodium 136 L (137-145) mmol/L Potassium 4.3 (3.5-5.1) mmol/L Chloride 99 (98-107) mmol/L Carbon Dioxide 31 H (22-30) mmol/L Anion Gap 6 mmol/L BUN 13 (9-20) mg/dL Creatinine 0.70 (0.66-1.25) mg/dL Est GFR (CKD-EPI)AfAm >90 (>60 ml/min/1.73 sqM) Est GFR (CKD-EPI)NonAf >90 (>60 ml/min/1.73 sqM) Glucose 98 (74-99) mg/dL Plasma Lactic Acid Georges 1.8 (0.7-2.0) mmol/L Calcium 8.7 (8.4-10.2) mg/dL Total Bilirubin 0.2 (0.2-1.3) mg/dL AST 35 (17-59) U/L ALT 35 (21-72) U/L Alkaline Phosphatase 81 (38-126) U/L Creatine Kinase 22 L (55-170) U/L Total Protein 6.1 L (6.3-8.2) g/dL Albumin 2.9 L (3.5-5.0) g/dL Amylase 155 H (30-110) U/L Lipase 459 H (23-300) U/L Urine Color Urine Appearance (Clear) Urine pH (5.0-8.0) Ur Specific [place] (1.001-1.035) Urine Protein (Negative) Urine Glucose (UA) (Negative) Urine Ketones (Negative) Urine Blood (Negative) Urine Nitrite (Negative) Urine Bilirubin (Negative) Urine Urobilinogen (<2.0) mg/dL Ur Leukocyte Esterase (Negative) Urine RBC (0-5) /hpf Urine WBC (0-5) /hpf Ur Squamous Epith Cells (0-4) /hpf Urine Mucus (None) /hpf 11/21/18 Range/Units 20:36 WBC (3.8-10.6) k/uL RBC (4.30-5.90) m/uL Hgb (13.0-17.5) gm/dL Hct (39.0-53.0) % MCV (80.0-100.0) fL MCH (25.0-35.0) pg MCHC (31.0-37.0) g/dL RDW (11.5-15.5) % Plt Count (150-450) k/uL Neutrophils % % Lymphocytes % % Monocytes % % Eosinophils % % Basophils % % Neutrophils # (1.3-7.7) k/uL Lymphocytes # (1.0-4.8) k/uL Monocytes # (0-1.0) k/uL Eosinophils # (0-0.7) k/uL Basophils # (0-0.2) k/uL Hypochromasia Poikilocytosis Anisocytosis Microcytosis Sodium (137-145) mmol/L Potassium (3.5-5.1) mmol/L Chloride (98-107) mmol/L Carbon Dioxide (22-30) mmol/L Anion Gap mmol/L BUN (9-20) mg/dL Creatinine (0.66-1.25) mg/dL Est GFR (CKD-EPI)AfAm (>60 ml/min/1.73 sqM) Est GFR (CKD-EPI)NonAf (>60 ml/min/1.73 sqM) Glucose (74-99) mg/dL Plasma Lactic Acid Georges (0.7-2.0) mmol/L Calcium (8.4-10.2) mg/dL Total Bilirubin (0.2-1.3) mg/dL AST (17-59) U/L ALT (21-72) U/L Alkaline Phosphatase (38-126) U/L Creatine Kinase (55-170) U/L Total Protein (6.3-8.2) g/dL Albumin (3.5-5.0) g/dL Amylase (30-110) U/L Lipase (23-300) U/L Urine Color Yellow Urine Appearance Cloudy (Clear) Urine pH 7.5 (5.0-8.0) Ur Specific [place] 1.026 (1.001-1.035) Urine Protein 1+ H (Negative) Urine Glucose (UA) Negative (Negative) Urine Ketones Negative (Negative) Urine Blood Negative (Negative) Urine Nitrite Negative (Negative) Urine Bilirubin Negative (Negative) Urine Urobilinogen 3.0 (<2.0) mg/dL Ur Leukocyte Esterase Negative (Negative) Urine RBC 31 H (0-5) /hpf Urine WBC 4 (0-5) /hpf Ur Squamous Epith Cells <1 (0-4) /hpf Urine Mucus Rare H (None) /hpf Disposition Clinical Impression: History of intravenous drug abuse, Crohns disease Disposition: HOME SELF-CARE Condition: Good Is patient prescribed a controlled substance at d/c from ED?: No Referrals: Chuck Talbot MD [Primary Care Provider] - 1-2 days
[2018-11-21 20:48] VITALS: RESP 18
[2018-11-21 20:48] LABS: Appearance,Urine Cloudy (Clear); Bilirubin,Urine Negative (Negative); Blood,Urine Negative (Negative); Color,Urine Yellow; Glucose,Urine (UA) Negative (Negative); Ketones,Urine Negative (Negative); Leukocyte Esterase,Urine Negative (Negative); Mucus,Urine Rare /hpf; Nitrite,Urine Negative (Negative); PH, Urine 7.5 (5.0-8.0); Protein,Urine 1+ (Negative); RBC,Urine 31 /hpf (0-5); Specific Gravity,Urine 1.026 (1.001-1.035); Squamous Epithelial Cell,Urine <1 /hpf (0-4); WBC,Urine 4 /hpf (0-5)
[2018-11-21 20:53] LABS: Anisocytosis Marked; Basophils # (A) 0.1 k/uL (0-0.2); Basophils % (A) 1 %; Eosinophils # (A) 0.1 k/uL (0-0.7); Eosinophils % (A) 1 %; HCT 33.7 % (39.0-53.0); Hypochromasia Marked; Lymphocytes # (A) 1.3 k/uL (1.0-4.8); Lymphocytes % (A) 14 %; MCHC 28.6 g/dL (31.0-37.0); MCV 73.5 fL (80.0-100.0); Mean Platelet Volume 6.4; Microcytosis Marked; Monocytes # (A) 0.6 k/uL (0-1.0); Monocytes % (A) 7 %; Neutrophils # (A) 6.7 k/uL (1.3-7.7); Neutrophils % (A) 76 %; Platelet Count 448 k/uL (150-450); Poikilocytosis Moderate; RBC 4.59 m/uL (4.30-5.90); RDW 24.6 % (11.5-15.5); WBC 8.8 k/uL (3.8-10.6)
[2018-11-21 20:54] LABS: HGB 9.6 gm/dL (13.0-17.5)
[2018-11-21 20:56] LABS: ALT 35 U/L (21-72); AST 35 U/L (17-59); African American GFR (CKD) >90 (>60 ml/min/1.73 sqM); Albumin 2.9 g/dL (3.5-5.0); Alkaline Phosphatase 81 U/L (38-126); Amylase 155 U/L (30-110); Anion Gap 6 mmol/L; Blood Urea Nitrogen 13 mg/dL (9-20); Calcium 8.7 mg/dL (8.4-10.2); Carbon Dioxide 31 mmol/L (22-30); Chloride 99 mmol/L (98-107); Creatine Kinase 22 U/L (55-170); Glucose 98 mg/dL (74-99); Lipase 459 U/L (23-300); Potassium 4.3 mmol/L (3.5-5.1); Sodium 136 mmol/L (137-145); Total Bilirubin 0.2 mg/dL (0.2-1.3); Total Protein 6.1 g/dL (6.3-8.2)
[2018-11-21] MEDS ORDERED: MORPHINE SULFATE 4 MG/ML SYRINGE IVP STA (21:33)
[2018-11-21] MEDS ORDERED: ONDANSETRON 4 MG/2 ML VIAL IVP STA (21:33)
[2018-11-21] MEDS ORDERED: ONDANSETRON 4 MG/2 ML VIAL IVP PRN (21:33)
[2018-11-21] MEDS ORDERED: PANTOPRAZOLE 40 MG/10 ML VIAL IVP STA (21:33)
[2018-11-22] MEDS ORDERED: ALBUTEROL NEBULIZED 2.5 MG/3 ML INHALATION PRN (00:02)
[2018-11-22] MEDS ORDERED: traZODone HCL 50 MG TAB PO SCH (00:15)
[2018-11-22] MEDS ORDERED: NON-FORMULARY DRUG (Ensure 1 CAN) PO SCH (00:15)
[2018-11-22] MEDS ORDERED: ZOLPIDEM 5 MG TAB PO PRN (00:27)
[2018-11-22] MEDS ORDERED: NICOTINE 21MG/24HR PATCH TRANSDERM SCH (00:28)
[2018-11-22] MEDS ORDERED: FAMOTIDINE 20 MG TAB PO SCH ×2 (00:51→21:00)
[2018-11-22] MEDS: APIXABAN 5 MG TAB PO SCH ×2 (00:57→08:54)
[2018-11-22] MEDS: MORPHINE SULFATE 4 MG/ML SYRINGE IVP PRN ×4 (00:58→13:17)
[2018-11-22 07:32] VITALS: BP 97/61; PULSE 75; TEMP 98.1
--- NOTE | 2018-11-22 07:45 | P.CONS ---
History of Present Illness - Reason for Consult Consult date: 11/22/18 History of Crohn's Requesting physician: Unruly Perrin - Chief Complaint I'm wasting away - History of Present Illness 38-year-old male by history of medical noncompliance juvenile Crohn's ileitis diagnosed H 14 with 2 bowel resections, underlying chronic iron deficiency a nemia vitamin B12 deficiency active intravenous drug abuse heroin last usage less than a month ago, thromboembolic disease maintained on aloe colitis admitted with concerning for nutrition " I'm wasting away, and my Crohn's is flared up". Patient reports multiple bowel movements but nonbloody with intermittent lower abdominal pain. He has been hospitalized a few times over the last month he underwent abdominal imaging which reported a cirrhotic appearing liver with ascites consistent with portal hypertension and splenomegaly. Chronic liver disease obtained and unremarkable. As well as a nonoccluding thrombus within the splenoportal confluence and main portal vein. Patient has left AMA a few admissions ago. He was advised medications for his maintenance of Crohn's and ascites but did not receive prescriptions. Paracentesis 11/16/2018 2.5 L removed cytology was not analyzed. SAAG greater than 1.1 consistent with portal hypertension. White count 8.8. Hemoglobin 9.6. MCV 73. Platelet 448. LFTs within normal limits. Hepatitis screen and HIV nonreactive. Sodium 136. Potassium 4.3. BUN 13. Creatinine 0.7. Albumin 2.9. Total protein 6.1. Lipase 459. Amylase 155. Prealbumin 11/01/2018 less than 5. He weighs 48.5 kg. Review of Systems Constitutional: Denies fever, chills, sweats, weight gain, progressive weight loss. HEENT: Negative for migraines, blurred vision or loss, earaches, drainage, tinnitus, oral mucosal lesions, dysphagia, or odynophagia. Cardiac: Negative for chest pain, arrhythmias, or palpitation. Respiratory: Negative for shortness of breath, hemoptysis, cough, or sputum production. Gastrointestinal: See HPI for pertinent findings. Genitourinary: Negative for hematuria, urgency, frequency, polyuria, dysuria, or penile discharge. Musculoskeletal: Negative for muscle aches, swelling, arthritis, and arthr algias. Neurologic: Negative for stroke or TIA. Endocrine: Negative for thyroid problems. Skin: Negative for rash or itching. Psychiatric: Negative history for depression and anxiety Past Medical History Past Medical History: Asthma, Deep Vein Thrombosis (DVT), Pulmonary Embolus (PE) Additional Past Medical History / Comment(s): low BP, crohns, diarrhea, blood clot in left side of neck, several blood transfusion while inpatient, cirrhosis, hyponatremia History of Any Multi-Drug Resistant Organisms: None Reported Past Surgical History: Bowel Resection Additional Past Surgical History / Comment(s): colonoscopy, abscess lower left abdomen- drainage, port for TPN/later removed. Past Anesthesia/Blood Transfusion Reactions: No Reported Reaction Past Psychological History: Depression Smoking Status: Current every day smoker Past Alcohol Use History: None Reported Past Drug Use History: Heroin, Marijuana Additional Drug Use History / Comment(s): Patient stated he used herion 10 days ago - Past Family History Mother Family Medical History: No Reported History Medications and Allergies Home Medications Medication Instructions Recorded Confirmed Type Albuterol Inhaler [Ventolin Hfa 2 puff INHALATION RT-DAILY PRN 07/30/18 11/21/18 History Inhaler] traZODone HCL 150 mg PO HS 07/30/18 11/21/18 History Apixaban [Eliquis] 5 mg PO BID 30 Days #60 tab 11/03/18 11/21/18 Rx Ranitidine HCl [Zantac] 75 mg PO HS 11/03/18 11/21/18 History Spironolactone 50 mg PO DAILY 30 Days #30 tablet 11/03/18 11/21/18 Rx Furosemide [Lasix] 40 mg PO DAILY #30 tablet 11/17/18 11/21/18 Rx Ensure 1 can PO DIRECTED 11/21/18 11/21/18 History predniSONE 0 mg PO DIRECTED #123 tab 11/22/18 Rx Allergies Allergy/AdvReac Type Severity Reaction Status Date / Time No Known Allergies Allergy Verified 11/21/18 23:18 Physical Exam Vitals: Vital Signs Temp Pulse Pulse Resp BP BP Pulse Ox 11/22/18 00:00 98.4 F 65 18 98/61 99 11/21/18 21:52 72 18 104/68 99 11/21/18 20:47 89 18 90/70 99 11/21/18 19:34 98.6 F 113 H 20 94/62 100 Intake and Output 07/10/19 07/11/19 07/11/19 22:59 06:59 14:59 Other: Voiding Method Toilet # Voids 2 Weight 48.534 kg General appearance: The patient is alert, oriented, in no acute distress. Cachectic appearance. HET: Head is normocephalic and atraumatic. Pupils are equal and reactive. Oropharynx is clear without lesions. Neck: Supple without lymphadenopathy. Trachea midline. Heart: S1 S2. Regular rate and rhythm. Lungs: No crackles or wheezes are heard. Abdomen: Soft, minimal ascites mildly tender bilateral lower abdomen with bowel sounds. No peritoneal signs. No palpable organomegaly or masses. Extremities: Normal skin color and turgor. No cyanosis, rash, ulceration, clubbing, or edema. Radial and pedal pulses are 2/4 bilaterally. Neurological: No focal deficits. Strength and sensation are grossly intact. Results CBC & Chem 7: 11/21/18 20:30 11/21/18 20:30 Labs: Abnormal Lab Results - Last 24 Hours (Table) 11/21/18 11/21/18 11/21/18 Range/Units 20:30 20:30 20:36 Hgb 9.6 L D (13.0-17.5) gm/dL Hct 33.7 L (39.0-53.0) % MCV 73.5 L (80.0-100.0) fL MCH 21.0 L (25.0-35.0) pg MCHC 28.6 L (31.0-37.0) g/dL RDW 24.6 H (11.5-15.5) % Sodium 136 L (137-145) mmol/L Carbon Dioxide 31 H (22-30) mmol/L Creatine Kinase 22 L (55-170) U/L Total Protein 6.1 L (6.3-8.2) g/dL Albumin 2.9 L (3.5-5.0) g/dL Amylase 155 H (30-110) U/L Lipase 459 H (23-300) U/L Urine Protein 1+ H (Negative) Urine RBC 31 H (0-5) /hpf Urine Mucus Rare H (None) /hpf Microbiology - Last 24 Hours (Table) 11/21/18 20:36 Urine Culture - Preliminary Urine,Voided Assessment and Plan (1) Crohns disease Narrative/Plan: 38-year-old male with a long-standing history of juvenile Crohn's ileitis thrombolic disease with underlying intravenous heroin abuse, last usage about a month ago with recent abdominal imaging suggestive of nonalcoholic cirrhosis portal hypertension splenomegaly recent paracentesis 2.5 L removed cytology not obtained with ascitic albumin levels consistent with portal hypertension. History of thromboembolic disease with portal vein thrombus maintained on Eliquis. Presents with concern for severe malnutrition and suspected Crohn's exacerbation with multiple nonbloody bowel movements. Current Visit: Yes Status: Acute Code(s): K50.90 - CROHN'S DISEASE, UNSPECIFIED, WITHOUT COMPLICATIONS SNOMED Code(s): 06516156 (2) Severe protein-calorie malnutrition Narrative/Plan: Prealbumin less than 5. Weight 48 kg. Serum albumin 1.8-2.9 over the last 3 weeks. Current Visit: Yes Status: Acute Code(s): E43 - UNSPECIFIED SEVERE PROTEIN- CALORIE MALNUTRITION SNOMED Code(s): 208120511 (3) Chronic iron deficiency anemia Current Visit: Yes Status: Acute Code(s): D50.9 - IRON DEFICIENCY ANEMIA, UNSPECIFIED SNOMED Code(s): 19157573 (4) Portal hypertension Current Visit: Yes Status: Acute Code(s): K76.6 - PORTAL HYPERTENSION SNOMED Code(s): 26329757 (5) Splenomegaly Current Visit: Yes Status: Acute Code(s): R16.1 - SPLENOMEGALY, NOT ELSEWHERE CLASSIFIED SNOMED Code(s): 03479633 (6) Cirrhosis of liver with ascites Current Visit: Yes Status: Acute Code(s): K74.60 - UNSPECIFIED CIRRHOSIS OF LIVER; R18.8 - OTHER ASCITES SNOMED Code(s): 84842640 (7) History of intravenous drug abuse Current Visit: Yes Status: Acute Code(s): F19.11 - OTHER PSYCHOACTIVE SUBSTANCE ABUSE, IN REMISSION SNOMED Code(s): 66814934086583005 (8) Heroin addiction Current Visit: No Status: Acute Priority: Medium Code(s): F11.20 - OPIOID DEPENDENCE, UNCOMPLICATED SNOMED Code(s): 037156288 (9) Microcytic anemia Current Visit: No Status: Acute Code(s): D50.9 - IRON DEFICIENCY ANEMIA, UNSPECIFIED SNOMED Code(s): 085942751 (10) Portal vein thrombosis Current Visit: No Status: Acute Priority: High Code(s): I81 - PORTAL VEIN THROMBOSIS SNOMED Code(s): 15460036 Plan: 1. Regular diet with ensure compact 3 times a day with meals. 2. Dietitian consult he has severe protein calorie malnutrition is not a candidate at this time for intravenous nutrition secondary to his drug abuse history. 3. IVDA abstinence and medical compliance was strongly advised. 4. Prednisone 40 mg daily with tapering dose every 7 days prescription provided. Patient most likely will need biological therapy for his Crohn's. Will obtain TB QuantiFERON/ additional serology for prescreening requirements. 5. Return to GI office 3-4 weeks for reevaluation. 6. Continue with Protonix 40 mg daily. 7. Continue with Lasix 40 mg daily and Aldactone 50 mg daily. 8. Iron vitamin B folic acid supplements advised. Thank you for this kind referral and the opportunity to participate in the care of your patient. This consultation was discussed with Dr. Sutton. The impression and plan of care have been directed as dictated.
[2018-11-22] MEDS ORDERED: PANTOPRAZOLE 40 MG/10 ML VIAL IVP SCH (09:00)
[2018-11-22] MEDS ORDERED: predniSONE 20 MG TAB PO SCH (09:00)
[2018-11-22] MEDS ORDERED: SPIRONOLACTONE 25 MG TAB PO SCH (09:00)
[2018-11-22] MEDS ORDERED: FUROSEMIDE 40 MG TAB PO SCH (09:00)
[2018-11-22] MEDS ORDERED: FERROUS SULFATE 325 MG TAB PO SCH (12:30)
[2018-11-22 14:22] VITALS: BMI 16.7
--- NOTE | 2018-11-22 16:07 | P.HPIM ---
History of Present Illness H&P Date: 11/22/18 Chief Complaint: Weight loss History of presenting complaint: This is a 38 year patient who follows with Dr. lal out of [place]. Patient was admitted on October 31 was here for couple of days and patient left AGAINST MEDICAL ADVICE. Patient has a known diagnosis of Crohn's disease. Also was doing IV heroin last use was about 3 weeks ago. Patient is also long-stand ing cigarette smoker. 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 Patient's currently staying with his mother. Patient had abdominocentesis sees carried out recently. Patient is being staying with the mother shows been cooking for him. Patient has been losing weight. And decided to come in as her mother had noticed a precipitate the drop in 24 hours. has not had a chance to follow up with the GI clinic. Patient was seen earlier by the GI team who prescribed the patient steroids. No fever no chills. Has about 3 or 4 bowel movements a day. Appetite is getting better. Review of systems: GEN.: Tired some weight loss EYES: None HEENT: None NECK: None RESPIRATORY: None CARDIOVASCULAR: None GASTROINTESTINAL: [Some abdominal pain, 3-4 BMs a day GENITOURINARY: None MUSCULOSKELETAL: None LYMPHATICS: None HEMATOLOGICAL: None PSYCHIATRY: None NEUROLOGICAL: Some anxiety, difficulty sleeping Past medical history: Crohn's disease, portal hypertension, ascites, incomplete DVT at the splenic and portal vein junction, IV heroin use, nicotine dependence, cirrhosis Social history: Was doing IV heroin up to 3 weeks ago, long-standing smoker, currently living with his mother Family history: Reviewed, noncontributory to presentation Physical examination: VITAL SIGNS: 98.6, 89, 18, 90/70, 99% room air GENERAL: BMI 16.8, laying in bed, comfortable. EYES: Pupils equal. Conjunctiva palel. HEENT: External appearance of nose and ears normal, oral cavity grossly normal. NECK: JVD not raised; masses not palpable. HEART: First and second heart sounds are normal; no edema. LUNGS: Respiratory rate normal; clear to auscultation. ABDOMEN: Soft, nontender, liver spleen not palpable, no masses palpable. PSYCH: Alert and oriented x3; mood and affect normal. NEUROLOGICAL: Cranial nerves grossly intact; no facial asymmetry, power and sensation grossly intact. LYMPHATICS: No lymph nodes palpable in the axilla and neck MUSCULOSKELETAL: Diffuse wasting of the muscles, loss of subcutaneous fat Assessment: - severe protein- calorie malnutrition, from decreased oral intake. Patient had poor nutritional status for a long time. Was hardly eating before. 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 -Chronic nicotine dependence patient cigarette smoker -IV heroin use up to about 3 weeks ago -Microcytic anemia multifactorial likely nutritional Plan: GI was consulted. Dietitian was consulted. Care was discussed in detail with the patient and mother. They had some concerns about appointments at GI clinic. There was some questions about competence of the GI service. I did explain to them at length is important that they have crust in the physicians. And if for any reason does not they didn't need to get opinion from outside in the large health systems . also's talked at length about nutrition. he was seen by viktor fowler. Mother has been cooking for him. Home medications are to be renewed Past Medical History Past Medical History: Asthma, Deep Vein Thrombosis (DVT), Pulmonary Embolus (PE) Additional Past Medical History / Comment(s): low BP, crohns, diarrhea, blood clot in left side of neck, several blood transfusion while inpatient, cirrhosis, hyponatremia History of Any Multi-Drug Resistant Organisms: None Reported Past Surgical History: Bowel Resection Additional Past Surgical History / Comment(s): colonoscopy, abscess lower left abdomen- drainage, port for TPN/later removed. Past Anesthesia/Blood Transfusion Reactions: No Reported Reaction Past Psychological History: Depression Smoking Status: Current every day smoker Past Alcohol Use History: None Reported Past Drug Use History: Heroin, Marijuana Additional Drug Use History / Comment(s): Patient stated he used herion 10 days ago - Past Family History Mother Family Medical History: No Reported History Medications and Allergies Home Medications Medication Instructions Recorded Confirmed Type Albuterol Inhaler [Ventolin Hfa 2 puff INHALATION RT-DAILY PRN 07/30/18 11/21/18 History Inhaler] traZODone HCL 150 mg PO HS 07/30/18 11/21/18 History Apixaban [Eliquis] 5 mg PO BID 30 Days #60 tab 11/03/18 11/21/18 Rx Ranitidine HCl [Zantac] 75 mg PO HS 11/03/18 11/21/18 History Spironolactone 50 mg PO DAILY 30 Days #30 tablet 11/03/18 11/21/18 Rx Furosemide [Lasix] 40 mg PO DAILY #30 tablet 11/17/18 11/21/18 Rx Ensure 1 can PO DIRECTED 11/21/18 11/21/18 History predniSONE 0 mg PO DIRECTED #123 tab 11/22/18 Rx Allergies Allergy/AdvReac Type Severity Reaction Status Date / Time No Known Allergies Allergy Verified 11/21/18 23:18 Physical Exam Vitals: Vital Signs Temp Pulse Pulse Resp BP BP BP 11/22/18 07:00 98.1 F 75 18 97/61 11/22/18 00:00 98.4 F 65 18 98/61 11/21/18 21:52 72 18 104/68 11/21/18 20:47 89 18 90/70 11/21/18 19:34 98.6 F 113 H 20 94/62 Pulse Ox 11/22/18 07:00 100 11/22/18 00:00 99 11/21/18 21:52 99 11/21/18 20:47 99 11/21/18 19:34 100 Intake and Output 11/22/18 11/22/18 11/22/18 06:59 14:59 22:59 Intake Total 354 Balance 354 Intake: Oral 354 Other: Voiding Method Toilet Toilet # Voids 2 Weight 48.534 kg Results CBC & Chem 7: 11/21/18 20:30 11/21/18 20:30 Labs: Abnormal Lab Results - Last 24 Hours (Table) 11/21/18 11/21/18 11/21/18 Range/Units 20:30 20:30 20:36 Hgb 9.6 L D (13.0-17.5) gm/dL Hct 33.7 L (39.0-53.0) % MCV 73.5 L (80.0-100.0) fL MCH 21.0 L (25.0-35.0) pg MCHC 28.6 L (31.0-37.0) g/dL RDW 24.6 H (11.5-15.5) % Sodium 136 L (137-145) mmol/L Carbon Dioxide 31 H (22-30) mmol/L Creatine Kinase 22 L (55-170) U/L Total Protein 6.1 L (6.3-8.2) g/dL Albumin 2.9 L (3.5-5.0) g/dL Amylase 155 H (30-110) U/L Lipase 459 H (23-300) U/L Urine Protein 1+ H (Negative) Urine RBC 31 H (0-5) /hpf Urine Mucus Rare H (None) /hpf Microbiology - Last 24 Hours (Table) 11/21/18 20:36 Urine Culture - Preliminary Urine,Voided Thrombosis Risk Factor Assmnt - Choose All That Apply Any of the Below Risk Factors Present?: Yes Each Factor Represents 1 point: Hx of IBD Other Risk Factors: Yes Each Risk Factor Represents 3 Points: History of DVT/PE Other congenital or acquired thrombophilia - If yes, enter type in comment: No Thrombosis Risk Factor Assessment Total Risk Factor Score: 4 Thrombosis Risk Factor Assessment Level: Moderate Risk
--- NOTE | 2018-11-22 21:44 | P.DS ---
Providers Date of admission: 11/21/18 21:33 Expected date of discharge: 11/22/18 Attending physician: Unruly Perrin Consults: 11/21/18 21:33 Consult Physician Routine Consulting Provider: Dipak Parmar Consult Reason/Comments: known Do you want consulting provider notified?: Yes Primary care physician: Chuck Talbot [facility] Course: Hospital course: This is a 38 year patient who follows with Dr. talbot out of [place]. Patient was admitted on October 31 was here for couple of days and patient left AGAINST MEDICAL ADVICE. Patient has a known diagnosis of Crohn's disease. Also was doing IV heroin last use was about 3 weeks ago. Patient is also long- standing cigarette smoker. 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 Patient's currently staying with his mother. Patient had abdominocentesis sees carried out recently. Patient is being staying with the mother shows been cooking for him. Patient has been losing weight. And decided to come in as her mother had noticed a precipitate the drop in 24 hours. has not had a chance to follow up with the GI clinic. Patient was seen earlier by the GI team who prescribed the patient steroids. No fever no chills. Has about 3 or 4 bowel movements a day. Appetite is getting better. Had a lengthy talk with the patient and mother. His appetite is actually improving. Mother has been cooking for him relevant. He'll be having a steroid taper dose. He is in follow-up with GI in the office. Patient to keep on his diuretics. Told to take his weight daily. Several questions were answered. Also patient and mother were explained if there is any concern about and is not sure about the specialist care 10 they should seek with a higher medical centers for example [facility] etc. Consultation: Dr. Arleth Sutton from GI Physical examination: VITAL SIGNS: 98.1, 75, 18, 87 since 61, 100% room air GENERAL: BMI 16.8, laying in bed, comfortable. EYES: Pupils equal. Conjunctiva palel. HEENT: External appearance of nose and ears normal, oral cavity grossly normal. NECK: JVD not raised; masses not palpable. HEART: First and second heart sounds are normal; no edema. LUNGS: Respiratory rate normal; clear to auscultation. ABDOMEN: Soft, nontender, liver spleen not palpable, no masses palpable. PSYCH: Alert and oriented x3; mood and affect normal. NEUROLOGICAL: Cranial nerves grossly intact; no facial asymmetry, power and sensation grossly intact. LYMPHATICS: No lymph nodes palpable in the axilla and neck MUSCULOSKELETAL: Diffuse wasting of the muscles, loss of subcutaneous fat Assessment: - severe protein- calorie malnutrition, from decreased oral intake. Patient had poor nutritional status for a long time. Was hardly eating before. 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 -Chronic nicotine dependence patient cigarette smoker -IV heroin use up to about 3 weeks ago -Microcytic anemia multifactorial likely nutritional Disposition: Home Patient Condition at Discharge: Stable Plan - Discharge Summary Discharge Rx Participant: No New Discharge Prescriptions: New predniSONE 0 mg PO DIRECTED #123 tab Ferrous Sulfate [Iron (65 MG Elemental)] 325 mg PO W/LUNCH tab Continue traZODone HCL 150 mg PO HS Albuterol Inhaler [Ventolin Hfa Inhaler] 2 puff INHALATION RT-DAILY PRN PRN Reason: Shortness Of Breath Apixaban [Eliquis] 5 mg PO BID 30 Days #60 tab Spironolactone 50 mg PO DAILY 30 Days #30 tablet No Action Ranitidine HCl [Zantac] 75 mg PO HS Furosemide [Lasix] 40 mg PO DAILY #30 tablet Ensure 1 can PO DIRECTED Discharge Medication List Albuterol Inhaler [Ventolin Hfa Inhaler] 2 puff INHALATION RT-DAILY PRN 07/30/18 [History] traZODone HCL 150 mg PO HS 07/30/18 [History] Apixaban [Eliquis] 5 mg PO BID 30 Days #60 tab 11/03/18 [Rx] Ranitidine HCl [Zantac] 75 mg PO HS 11/03/18 [History] Spironolactone 50 mg PO DAILY 30 Days #30 tablet 11/03/18 [Rx] Furosemide [Lasix] 40 mg PO DAILY #30 tablet 11/17/18 [Rx] Ensure 1 can PO DIRECTED 11/21/18 [History] Ferrous Sulfate [Iron (65 MG Elemental)] 325 mg PO W/LUNCH tab 11/22/18 [Rx] predniSONE 0 mg PO DIRECTED #123 tab 11/22/18 [Rx] Follow up Appointment(s)/Referral(s): Chuck Talbot MD [Primary Care Provider] - 3 Days Dipak Parmar MD [STAFF PHYSICIAN] - 2 Weeks Activity/Diet/Wound Care/Special Instructions: Diet as per dietitian. Keep a log of daily weights Discharge Disposition: HOME SELF-CARE
[2018-11-23] MEDS ORDERED: PANTOPRAZOLE 40 MG TABLET PO SCH (07:30)
== END 2018-11-22 16:45 | disposition home or self-care (01) ==
LOC: EC 19:26 → 1SOBS 21:33
PROVIDERS: ADMIT Hospitalist; ATTEND Hospitalist
DX: E43 Unspecified severe protein-calorie malnutrition (principal); Z68.1 Body mass index [BMI] 19.9 or less, adult; K74.60 Unspecified cirrhosis of liver; I81 Portal vein thrombosis; K76.6 Portal hypertension; K50.00 Crohn's disease of small intestine without complications; D51.9 Vitamin B12 deficiency anemia, unspecified; I15.8 Other secondary hypertension; F11.20 Opioid dependence, uncomplicated; R18.8 Other ascites; R16.1 Splenomegaly, not elsewhere classified; D50.9 Iron deficiency anemia, unspecified; F32.9 Major depressive disorder, single episode, unspecified; J45.909 Unspecified asthma, uncomplicated; F17.210 Nicotine dependence, cigarettes, uncomplicated; Z86.718 Personal history of other venous thrombosis and embolism; Z86.711 Personal history of pulmonary embolism; Z90.49 Acquired absence of other specified parts of digestive tract; Z79.01 Long term (current) use of anticoagulants; Z79.899 Other long term (current) drug therapy; Z79.52 Long term (current) use of systemic steroids; Z79.891 Long term (current) use of opiate analgesic; Z91.19 Patient's noncompliance with other medical treatment and regimen
CPT/HCPCS: 96361 ×2; 96376; 96374; 96375; 99285; 36415; 80053; 82150; 82550; 83605; 83690; 85025; 81001; 86480; 87086; G0378 ×2; S4990; J2270 ×2; J2405; J7512; C9113 ×2

== ENCOUNTER → 2018-12-11 | Outpatient (CLI) | payer OTHER ==
[2018-12-11 14:42] LABS: Anisocytosis Moderate; Basophils % (A) 0 %; Eosinophils % (A) 0 %; HCT 30.1 % (39.0-53.0); HGB 8.2 gm/dL (13.0-17.5); Hypochromasia Marked; Lymphocytes # (A) 0.6 k/uL (1.0-4.8); Lymphocytes % (A) 5 %; MCHC 27.1 g/dL (31.0-37.0); MCV 77.6 fL (80.0-100.0); Mean Platelet Volume 6.2; Microcytosis Moderate; Monocytes # (A) 0.2 k/uL (0-1.0); Monocytes % (A) 2 %; Neutrophils # (A) 10.8 k/uL (1.3-7.7); Neutrophils % (A) 92 %; Platelet Count 465 k/uL (150-450); Poikilocytosis Slight; RBC 3.88 m/uL (4.30-5.90); RDW 22.6 % (11.5-15.5); WBC 11.8 k/uL (3.8-10.6)
[2018-12-11 20:32] LABS: African American GFR (CKD) 131.3 (60.0-200.0); Albumin 3.6 g/dL (3.80-4.90); Anion Gap 8.8 mmol/L (4.00-12.00); BUN/Creat Ratio 17.5 Ratio (12.00-20.00); Calcium 8.6 mg/dL (8.7-10.3); Carbon Dioxide 29.2 mmol/L (21.6-31.8); Globulin 1.8 g/dL (1.6-3.3); Potassium 4.8 mmol/L (3.5-5.5); Total Bilirubin 0.2 mg/dL (0.2-1.2); Total Protein 5.4 g/dL (6.2-8.2)
== END | disposition home or self-care (01) ==
LOC: LABWHC1 13:42
PROVIDERS: ATTEND Internal Medicine
DX: K50.90 Crohn's disease, unspecified, without complications (principal)
CPT/HCPCS: 36415; 80053; 85025

== ENCOUNTER → 2019-01-03 | Outpatient (CLI) | payer OTHER ==
[2019-01-03 15:31] LABS: Prothrombin Time 10.5 sec (9.0-12.0)
[2019-01-03 18:55] LABS: African American GFR (CKD) 131.3 (60.0-200.0); Albumin 3.8 g/dL (3.80-4.90); BUN/Creat Ratio 17.5 Ratio (12.00-20.00); Calcium 8.7 mg/dL (8.7-10.3); Globulin 1.9 g/dL (1.6-3.3); Potassium 4.8 mmol/L (3.5-5.5); Total Bilirubin 0.2 mg/dL (0.3-1.2); Total Protein 5.7 g/dL (6.2-8.2)
[2019-01-03 19:57] LABS: Hepatitis C IgG Antibody Non-Reactive (Non-Reactive)
== END | disposition home or self-care (01) ==
LOC: LABWHC1 14:38
PROVIDERS: ATTEND Internal Medicine
DX: K50.90 Crohn's disease, unspecified, without complications (principal); K74.60 Unspecified cirrhosis of liver; E87.1 Hypo-osmolality and hyponatremia
CPT/HCPCS: 36415; 80053; 85610; 86704; 86706; 86803; 87340

== ENCOUNTER 2019-02-11 08:50 | Day surgery (SDC) | payer OTHER ==
[2019-02-07 12:41] VITALS: BMI 20.9
[~2019-02-11 08:50] MED LIST changes: +LIDOCAINE 1% 20 ML VIAL (10MG/ML) FOR IV START INTRADERMA PRN
[2019-02-11 09:29] VITALS: TEMP 98.1
[2019-02-11] MEDS ORDERED: PROPOFOL 10 MG/ML 20 ML VIAL IV ONE (10:15)
--- NOTE | 2019-02-11 10:59 | P.PCN ---
Date of Procedure: 02/11/19 Description of Procedure: BRIEF HISTORY: Patient is a 38-year-old pleasant male scheduled for an elective colonoscopy as a part of surveillance due to a personal history of Crohn's disease diagnosed at the age of 14. Patient is status post terminal ileal resection at the age of 14 and further small bowel surgery in 2015. He was previously on Remicade infusions from the ages of [age] and has required steroids in the past. No recent colonoscopy. PROCEDURE PERFORMED: Colonoscopy with biopsy. PREOPERATIVE DIAGNOSIS: Crohn's disease. ESTIMATED BLOOD LOSS: Minimal. IV sedation per Anesthesia. PROCEDURE: After informed consent was obtained, the patient, was brought into the endoscopy unit. IV sedation was administered by Anesthesia under continuous monitoring. Digital rectal examination was normal. Initially the Olympus CF-190 flexible video colonoscope was then inserted in the rectum, gradually advanced into the cecum without any difficulty. Careful examination was performed as the scope was gradually being withdrawn. The patient's anatomy was consistent with prior ilial resection with the anastomotic site appearing somewhat inflamed and narrowed, making intubation of the neoterminal ileum, possible. Biopsies were taken at the anastomotic site 80 cm from the anal verge and then every 10 cm. Prep was excellent. Mucosa of the cecum, ascending colon, transverse colon, descending colon, sigmoid colon, and rectum appeared normal. Retroflexion was performed in the rectum and no lesions were seen. The patient tolerated the procedure well. IMPRESSION: Postsurgical anatomy with inflammation and narrowing of the neoterminal ileum prohibiting intubation of the small bowel. Biopsies taken at 80 cm from the anal verge at the anastomotic site and then every 10 cm. RECOMMENDATIONS: Findings of this examination were discussed with the patient. Okay to resume diet. Follow-up in gastroenterology clinic as previously scheduled. Await pathology from biopsies. Anticipate restarting biologic therapy. Repeat colonoscopy in 2-3 years.
[2019-02-11 11:26] VITALS: BP 92/58; PULSE 63; RESP 16
== END 2019-02-11 12:15 | disposition home or self-care (01) ==
LOC: ORWHC2ENDO 08:50
PROVIDERS: ATTEND Internal Medicine
DX: K51.90 Ulcerative colitis, unspecified, without complications (principal); Z98.0 Intestinal bypass and anastomosis status; J45.909 Unspecified asthma, uncomplicated; F17.210 Nicotine dependence, cigarettes, uncomplicated; K50.90 Crohn's disease, unspecified, without complications; Z79.01 Long term (current) use of anticoagulants; Z79.899 Other long term (current) drug therapy; Z86.718 Personal history of other venous thrombosis and embolism; Z86.711 Personal history of pulmonary embolism
CPT/HCPCS: 88305; 45380; J2704

== ENCOUNTER → 2019-03-27 | Outpatient (CLI) | payer BC ==
--- NOTE | 2019-03-27 11:28 | US ---
EXAMINATION TYPE: US abdomen complete DATE OF EXAM: 03/27/2019 COMPARISON: CT abdomen pelvis dated 10/31/2018 CLINICAL HISTORY: D50.0 Anemia Abd pain R10.13. Follow up portal vein thrombus, patient on blood thin ners EXAM MEASUREMENTS: Liver Length: 16.7 cm Gallbladder Wall: 0.1 cm CBD: 0.6 cm Spleen: 10.7 cm Right Kidney: 10.5 x 4.6 x 5.6 cm Left Kidney: 10.1 x 5.4 x 4.1 cm Pancreas: duct seen measuring 0.3cm Liver: wnl, portal vein appears patent with hepatopedal flow Gallbladder: appears hydropic, wall measures wnl Evidence for sonographic Nolen's sign: no CBD: Upper limits of normal measuring 0.6cm Spleen: wnl Right Kidney: wnl Left Kidney: wnl Upper IVC: wnl Abd Aorta: wnl The liver is homogenous. The intrahepatic portion of the IVC and proximal abdominal aorta are within normal limits. There is no evidence of cholelithiasis. Common bile duct is unremarkable. The splee n is unremarkable. Kidneys are symmetric and free of hydronephrosis. No renal lesions are seen. IMPRESSION: 1. Portal vein is now patent with appropriate hepatopedal flow. 2. Hydropic size of the gallbladder. HIDA scan with CCK could evaluate for biliary dyskinesia. 3. Main pancreatic duct is mildly dilated, which could be on the basis of chronic pancreatitis, main branch IPMN, or obstructing pancreatic mass. MRCP could further evaluate this finding.
[2019-03-27 12:38] LABS: African American GFR (CKD) >90 (>60 ml/min/1.73 sqM); Blood Urea Nitrogen 9 mg/dL (9-20)
== END | disposition home or self-care (01) ==
LOC: RADUSWWP 10:15
PROVIDERS: ATTEND Internal Medicine Hematology & Oncology
DX: I81 Portal vein thrombosis (principal); K82.8 Other specified diseases of gallbladder; D50.0 Iron deficiency anemia secondary to blood loss (chronic); R10.13 Epigastric pain
CPT/HCPCS: 76700; 82565; 84520

== ENCOUNTER → 2019-12-04 | Outpatient (CLI) | payer BC, OTHER ==
[2019-12-04 14:17] LABS: Anisocytosis Moderate; Basophils # (A) 0.1 k/uL (0-0.2); Basophils % (A) 1 %; Eosinophils # (A) 0.2 k/uL (0-0.7); Eosinophils % (A) 2 %; HCT 30.4 % (39.0-53.0); HGB 8.7 gm/dL (13.0-17.5); Hypochromasia Marked; Lymphocytes # (A) 1.4 k/uL (1.0-4.8); Lymphocytes % (A) 12 %; MCH 23.1 pg (25.0-35.0); MCHC 28.8 g/dL (31.0-37.0); MCV 80.2 fL (80.0-100.0); Mean Platelet Volume 6.5; Microcytosis Slight; Monocytes # (A) 0.6 k/uL (0-1.0); Monocytes % (A) 5 %; Neutrophils # (A) 9.3 k/uL (1.3-7.7); Neutrophils % (A) 80 %; Platelet Count 380 k/uL (150-450); Poikilocytosis Slight; RBC 3.78 m/uL (4.30-5.90); RDW 20.2 % (11.5-15.5); WBC 11.6 k/uL (3.8-10.6)
[2019-12-04 18:32] LABS: Prothrombin Time 10.7 sec (9.9-11.9)
[2019-12-04 18:59] LABS: Erythrocyte Sedimentation Rate 16 mm/Hr (0-15)
[2019-12-04 19:11] LABS: African American GFR (CKD) 137.8 (60.0-200.0); Albumin 2.7 g/dL (3.80-4.90); Albumin/Globulin Ratio 1.8 (1.60-3.17); Anion Gap -0.1 mmol/L (4.00-12.00); BUN/Creat Ratio 21.43 Ratio (12.00-20.00); C Reactive Protein 1.2 mg/dL (0.0-0.8); Carbon Dioxide 31.1 mmol/L (21.6-31.8); Folate, Serum 12.1 ng/mL; Globulin 1.5 g/dL (1.6-3.3); Non-African American GFR(CKD) 118.9 (60.0-200.0); Potassium 3.9 mmol/L (3.5-5.5); Total Bilirubin 0.2 mg/dL (0.3-1.2); Total Protein 4.2 g/dL (6.2-8.2)
[2019-12-04 20:04] LABS: Hepatitis B Surface AB- Quant 3.5 mIU/mL; Hepatitis B Surface Antibody Non-Reactive (Non-Reactive); Hepatitis B Surface Antigen Non-Reactive (Non-Reactive); Hepatitis C IgG Antibody Non-Reactive (Non-Reactive)
== END | disposition home or self-care (01) ==
LOC: LABWHC1 13:20
PROVIDERS: ATTEND Internal Medicine
DX: K50.90 Crohn's disease, unspecified, without complications (principal)
CPT/HCPCS: 36415; 80053; 82306; 82607; 82746; 85025; 85610; 85652; 86140; 86480; 86704; 86706; 86803; 87340

== ENCOUNTER 2019-12-05 10:11 | Day surgery (SDC) | payer BC, OTHER ==
[2019-12-05 10:34] VITALS: TEMP 97.9
[2019-12-05] MEDS ORDERED: LACTATED RINGERS 1,000 ML IV ONE (10:41)
[2019-12-05] MEDS ORDERED: LIDOCAINE 1% INJ 10MG/ML (20 ML MDV) ONE (11:13)
[2019-12-05] MEDS ORDERED: PROPOFOL 10 MG/ML 20 ML VIAL IV ONE (11:13)
--- NOTE | 2019-12-05 11:35 | P.PCN ---
Date of Procedure: 12/05/19 Description of Procedure: BRIEF HISTORY: Patient is a 39-year-old male with a known history of Crohn's disease of the terminal ileum diagnosed in 2014 status post ileocecectomy as well as further small bowel resection in 2015 was previously on Remicade therapy and has a known history of iron deficiency anemia status post transfusion 2 days ago who presents for evaluation with EGD for iron deficiency anemia. Patient had been on biologic therapy in the past as described. This is been stopped due to substance abuse and noncompliance. He was seen in our clinic over the past year and initiated on treatment with 5ASA agents including mesalamine and Pentasa which she did not tolerate. Multiple trials to attain biologic therapy were unsuccessful secondary to insurance issues, and we are again try to obtain Humira for the patient. He did have colonoscopy in 2019 with findings of stricturing at the anastomotic site. PROCEDURE PERFORMED: Esophagogastroduodenoscopy with biopsy. PREOPERATIVE DIAGNOSIS: Iron deficiency anemia. ESTIMATED BLOOD LOSS: Minimal. IV sedation per anesthesia. PROCEDURE: After informed consent was obtained, the patient was brought into the endoscopy unit. IV sedation was administered by Anesthesia under continuous monitoring. Initially the Olympus GIF-190 video endoscope was inserted into the mouth. Esophagus intubated without any difficulty. It was gradually advanced into the stomach and duodenum and carefully examined. The bulb and the second part of the duodenum appeared normal, with biopsies taken. The scope at this time was withdrawn to the stomach, adequately insufflated with air, and upon careful examination, mucosa of the antrum, body, cardia and the fundus appeared normal, except for some mild scattered erythema in the antrum and body suggestive of mild gastritis with biopsies taken . The scope was then withdrawn into the esophagus. The GE junction was located at 37 cm from the incisors, with biopsies taken . The esophagus appeared normal. There were no erosions or ulcerations seen and the patient tolerated the procedure well. IMPRESSION: 1. Mild gastritis, antrum body biopsy. 2. Biopsies of the duodenum and GE junction. RECOMMENDATIONS: The findings of this examination were discussed with the patient and his mother. Okay to resume diet. Okay to resume medications. Await pathology from biopsies. Follow up in gastroenterology clinic as previously scheduled in 1 month.
[2019-12-05] MEDS ORDERED: LACTATED RINGERS 1,000 ML IV SCH (11:38)
[2019-12-05 12:05] VITALS: BP 83/44; PULSE 62; RESP 18
== END 2019-12-05 12:14 | disposition home or self-care (01) ==
LOC: ORWHC2ENDO 10:11
PROVIDERS: ATTEND Internal Medicine
DX: K29.50 Unspecified chronic gastritis without bleeding (principal); K22.8 Other specified diseases of esophagus; D50.9 Iron deficiency anemia, unspecified; K50.00 Crohn's disease of small intestine without complications; J45.909 Unspecified asthma, uncomplicated; K74.3 Primary biliary cirrhosis; F19.10 Other psychoactive substance abuse, uncomplicated; Z87.19 Personal history of other diseases of the digestive system; Z90.49 Acquired absence of other specified parts of digestive tract; Z91.19 Patient's noncompliance with other medical treatment and regimen; Z72.0 Tobacco use; Z79.899 Other long term (current) drug therapy; Z79.52 Long term (current) use of systemic steroids; Z79.01 Long term (current) use of anticoagulants; Z79.891 Long term (current) use of opiate analgesic; Z98.890 Other specified postprocedural states; Z86.718 Personal history of other venous thrombosis and embolism
CPT/HCPCS: 88305; 43239; J2001; J2704

== ENCOUNTER → 2019-12-10 | Outpatient (CLI) | payer BC, OTHER ==
--- NOTE | 2019-12-10 23:20 | MR ---
MRI ABDOMEN WITHOUT CONTRAST, MRCP CLINICAL INDICATION: Right lower quadrant abdominal pain. History of bowel resection x2, Crohn disea se. TECHNIQUE: Multi planar, multi sequence imaging was performed. 3-D [id number] imaging was utili zed in order to study the biliary system. Maximum intensity projection images were reconstructed fro m the original data. No Gadolinium given. COMPARISON: CT abdomen pelvis 10/31/2018.. FINDINGS: MRCP: The intrahepatic ducts have a normal appearance. The common bile duct at the level of the amaya creatic head measures 3 mm in size. The common hepatic duct measures 6 mm in size. The pancreatic du ct is normal. The gallbladder appears unremarkable. Abdomen: There is no significant signal loss on out of phase imaging of the liver to suggest fatty li neli. Few tiny T2 hyperintense hepatic cysts. Normal hepatic peripheral contour. The spleen, adrenal g lands, kidneys, and pancreas appear unremarkable. The spleen measures 12.0 cm in cranial caudal dimen tamra, within normal limits, and decreased from 10/31/2018 CT comparison when it measured 16 cm. No karyn dence of bowel obstruction. Tiny vertebral body hemangioma of L3. IMPRESSIONS: No evidence of biliary ductal or pancreatic ductal stricture or dilatation. No choledocholithiasis.
== END | disposition home or self-care (01) ==
LOC: RADMRIMAIN 15:28
PROVIDERS: ATTEND Internal Medicine Hematology & Oncology
DX: R10.10 Upper abdominal pain, unspecified (principal)
CPT/HCPCS: 74181

== ENCOUNTER 2020-02-13 15:56 | Emergency (ER) | payer BC, OTHER ==
[2020-02-13] MEDS ORDERED: SODIUM CHLORIDE 0.9% 1,000 ML IV STA (16:28)
--- NOTE | 2020-02-13 16:44 | ED ---
Recheck HPI - General Chief Complaint: Recheck/Abnormal Lab/Rx Stated Complaint: Low BP Time Seen by Provider: 02/13/20 16:28 Source: patient, RN notes reviewed, old records reviewed Mode of arrival: ambulatory Limitations: no limitations - History of Present Illness Initial Comments: This is a 39-year-old male DF presents today for evaluation regards to abnormal lab values. Patient was sent in by his primary care and his oncologist Dr. gil for low hemoglobin and transfusion. Patient was feeling weak lightheaded and dizzy at times. Patient has history of Crohn's with chronic anemia MD Complaint: abnormal lab (Low hemoglobin) -: year(s) Returns Today for: Called Because of Abnormal Lab/Test, persistent/worsening pain related to initial visit Symptoms Since Prior Visit: no new symptoms (Increasing weakness) Associated Symptoms: shortness of breath, malaise, abdominal pain - Related Data Home Medications Medication Instructions Recorded Confirmed Albuterol Inhaler (Mhu) [Ventolin 2 puff INHALATION DAILY PRN 07/30/18 01/29/20 Hfa Inhaler (Mhu)] raNITIdine HCL [Zantac] 75 mg PO HS 11/03/18 01/29/20 Ensure 1 can PO DIRECTED 11/21/18 01/29/20 Buprenorphine HCl/Naloxone HCl 8 mg SL BID 12/27/18 01/29/20 [Suboxone 8 mg-2 mg Sl Film] Rivaroxaban [Xarelto] 10 mg PO DAILY 02/05/19 01/29/20 Furosemide [Lasix] 20 mg PO DAILY 02/07/19 01/29/20 Spironolactone 25 mg PO DAILY 02/07/19 01/29/20 predniSONE [Deltasone] 40 mg PO DIRECTED 12/04/19 01/29/20 Allergies Allergy/AdvReac Type Severity Reaction Status Date / Time No Known Allergies Allergy Verified 02/13/20 16:09 Review of Systems ROS Statement: Those systems with pertinent positive or pertinent negative responses have been documented in the HPI. ROS Other: All systems not noted in ROS Statement are negative. Past Medical History Past Medical History: Asthma, Deep Vein Thrombosis (DVT), Pulmonary Embolus (PE) Additional Past Medical History / Comment(s): low BP, crohns, diarrhea, blood clot in left side of neck, several blood transfusion while inpatient, cirrhosis, hyponatremia History of Any Multi-Drug Resistant Organisms: None Reported Past Surgical History: Bowel Resection Additional Past Surgical History / Comment(s): colonoscopy, abscess lower left abdomen- drainage, port for TPN/later removed. Past Anesthesia/Blood Transfusion Reactions: No Reported Reaction Past Psychological History: Depression Smoking Status: Current every day smoker Past Alcohol Use History: None Reported Past Drug Use History: Heroin, Marijuana - Past Family History Mother Family Medical History: No Reported History General Exam Limitations: no limitations General appearance: alert, in no apparent distress Head exam: Present: atraumatic, normocephalic, normal inspection Eye exam: Present: normal appearance, PERRL, EOMI. Absent: scleral icterus, conjunctival injection, periorbital swelling ENT exam: Present: normal exam, mucous membranes moist Neck exam: Present: normal inspection. Absent: tenderness, meningismus, lymphadenopathy Respiratory exam: Present: normal lung sounds bilaterally. Absent: respiratory distress, wheezes, rales, rhonchi, stridor Cardiovascular Exam: Present: regular rate, normal rhythm, normal heart sounds. Absent: systolic murmur, diastolic murmur, rubs, gallop, clicks GI/Abdominal exam: Present: soft, normal bowel sounds. Absent: distended, tenderness, guarding, rebound, rigid Extremities exam: Present: normal inspection, full ROM, normal capillary refill. Absent: tenderness, pedal edema, joint swelling, calf tenderness Back exam: Present: normal inspection Neurological exam: Present: alert, oriented X3, CN II-XII intact Psychiatric exam: Present: normal affect, normal mood Skin exam: Present: warm, dry, intact, normal color. Absent: rash Course Vital Signs 02/13/20 02/13/20 16:04 18:04 Pulse Rate 79 75 Respiratory 18 16 Rate Blood Pressure 87/52 77/41 O2 Sat by Pulse 97 95 Oximetry - Reevaluation(s) Reevaluation #1: 02/13/20 17:20 Medical record is reviewed Reevaluation #2: 02/13/20 18:23 Outpatient lab value hemoglobin 6.5 improved here at 7.1 Reevaluation #3: 02/13/20 18:23 Spoke with patient, will transfuse patient and discharge today - Consultations Consultation #1: Did speak with Dr. Lennon regarding this patient Medical Decision Making - Medical Decision Making 39 male DF for evaluation outpatient low hemoglobin and weakness, patient has history of chronic anemia secondary to Crohn's some persistent bleeding. Patient given transfusion can be discharged home - Lab Data Result diagrams: 02/13/20 17:28 02/13/20 17:28 Lab Results 02/13/20 02/13/20 Range/Units 17:28 17:28 WBC 6.8 (3.8-10.6) k/uL RBC 4.08 L (4.30-5.90) m/uL Hgb 7.5 L (13.0-17.5) gm/dL Hct 26.9 L (39.0-53.0) % MCV 66.0 L (80.0-100.0) fL MCH 18.3 L (25.0-35.0) pg MCHC 27.7 L (31.0-37.0) g/dL RDW 16.9 H (11.5-15.5) % Plt Count 325 (150-450) k/uL Neutrophils % 64 % Lymphocytes % 20 % Monocytes % 8 % Eosinophils % 6 % Basophils % 1 % Neutrophils # 4.3 (1.3-7.7) k/uL Lymphocytes # 1.3 (1.0-4.8) k/uL Monocytes # 0.5 (0-1.0) k/uL Eosinophils # 0.4 (0-0.7) k/uL Basophils # 0.1 (0-0.2) k/uL Hypochromasia Marked Poikilocytosis Moderate Anisocytosis Slight Microcytosis Marked Sodium 129 L (137-145) mmol/L Potassium 3.3 L (3.5-5.1) mmol/L Chloride 93 L (98-107) mmol/L Carbon Dioxide 36 H (22-30) mmol/L Anion Gap 0 mmol/L BUN 14 (9-20) mg/dL Creatinine 0.88 (0.66-1.25) mg/dL Est GFR (CKD-EPI)AfAm >90 (>60 ml/min/1.73 sqM) Est GFR (CKD-EPI)NonAf >90 (>60 ml/min/1.73 sqM) Glucose 97 (74-99) mg/dL Calcium 7.9 L (8.4-10.2) mg/dL Magnesium 2.0 (1.6-2.3) mg/dL Total Bilirubin 0.3 (0.2-1.3) mg/dL AST 23 (17-59) U/L ALT 15 (4-49) U/L Alkaline Phosphatase 72 (38-126) U/L Total Protein 5.0 L (6.3-8.2) g/dL Albumin 2.6 L (3.5-5.0) g/dL Disposition Clinical Impression: Anemia, Chronic iron deficiency anemia, Crohns disease Disposition: HOME SELF-CARE Condition: Fair Instructions (If sedation given, give patient instructions): Anemia (ED) Is patient prescribed a controlled substance at d/c from ED?: No Referrals: Chuck Talbot MD [Primary Care Provider] - 1-2 days
[2020-02-13 17:40] LABS: Anisocytosis Slight; Basophils # (A) 0.1 k/uL (0-0.2); Basophils % (A) 1 %; Eosinophils # (A) 0.4 k/uL (0-0.7); Eosinophils % (A) 6 %; HCT 26.9 % (39.0-53.0); HGB 7.5 gm/dL (13.0-17.5); Hypochromasia Marked; Lymphocytes # (A) 1.3 k/uL (1.0-4.8); Lymphocytes % (A) 20 %; MCH 18.3 pg (25.0-35.0); MCHC 27.7 g/dL (31.0-37.0); Mean Platelet Volume 6.8; Microcytosis Marked; Monocytes # (A) 0.5 k/uL (0-1.0); Monocytes % (A) 8 %; Neutrophils # (A) 4.3 k/uL (1.3-7.7); Neutrophils % (A) 64 %; Platelet Count 325 k/uL (150-450); Poikilocytosis Moderate; RBC 4.08 m/uL (4.30-5.90); RDW 16.9 % (11.5-15.5); WBC 6.8 k/uL (3.8-10.6)
[2020-02-13 18:01] LABS: ALT 15 U/L (4-49); AST 23 U/L (17-59); African American GFR (CKD) >90 (>60 ml/min/1.73 sqM); Albumin 2.6 g/dL (3.5-5.0); Alkaline Phosphatase 72 U/L (38-126); Anion Gap 0 mmol/L; Blood Urea Nitrogen 14 mg/dL (9-20); Calcium 7.9 mg/dL (8.4-10.2); Carbon Dioxide 36 mmol/L (22-30); Chloride 93 mmol/L (98-107); Glucose 97 mg/dL (74-99); Non-African American GFR(CKD) >90 (>60 ml/min/1.73 sqM); Potassium 3.3 mmol/L (3.5-5.1); Sodium 129 mmol/L (137-145); Total Bilirubin 0.3 mg/dL (0.2-1.3)
[2020-02-13] MEDS ORDERED: POTASSIUM BICARBONATE/CIT AC 20 MEQ TABLET.EFF PO ONE (18:04)
[2020-02-13 18:06] VITALS: RESP 16
[2020-02-13 21:38] VITALS: BP 95/51; PULSE 73; TEMP 97.9
== END 2020-02-13 21:46 | disposition home or self-care (01) ==
LOC: EC 15:56
DX: K50.90 Crohn's disease, unspecified, without complications (principal); D50.9 Iron deficiency anemia, unspecified; J45.909 Unspecified asthma, uncomplicated; F32.9 Major depressive disorder, single episode, unspecified; K74.60 Unspecified cirrhosis of liver; F17.200 Nicotine dependence, unspecified, uncomplicated; Z79.51 Long term (current) use of inhaled steroids; Z79.899 Other long term (current) drug therapy; Z79.52 Long term (current) use of systemic steroids; Z79.01 Long term (current) use of anticoagulants; Z86.718 Personal history of other venous thrombosis and embolism; Z86.711 Personal history of pulmonary embolism
CPT/HCPCS: 36415; 86900; 86901; 80053; 83735; 85025; 86850; 86920; 99285; 96360; 96361 ×3; P9016; 36430

== ENCOUNTER 2020-03-30 15:33 | Emergency (ER) | payer BC, OTHER ==
[2020-03-30] MEDS ORDERED: PANTOPRAZOLE 40 MG/10 ML VIAL IVP STA (16:18)
[2020-03-30 16:51] LABS: Partial Thromboplastin Time 22.7 sec (22.0-30.0); Prothrombin Time 10.7 sec (9.0-12.0)
[2020-03-30 17:01] LABS: ALT 17 U/L (4-49); AST 28 U/L (17-59); African American GFR (CKD) >90 (>60 ml/min/1.73 sqM); Albumin 2.4 g/dL (3.5-5.0); Alkaline Phosphatase 70 U/L (38-126); Anion Gap -1 mmol/L; Anisocytosis Moderate; Basophils % (A) 0 %; Blood Urea Nitrogen 17 mg/dL (9-20); Calcium 7.5 mg/dL (8.4-10.2); Carbon Dioxide 34 mmol/L (22-30); Chloride 92 mmol/L (98-107); Eosinophils # (A) 0.1 k/uL (0-0.7); Eosinophils % (A) 1 %; Glucose 88 mg/dL (74-99); HCT 22.7 % (39.0-53.0); Hypochromasia Marked; Lymphocytes # (A) 1.1 k/uL (1.0-4.8); Lymphocytes % (A) 13 %; MCH 20.1 pg (25.0-35.0); MCHC 27.6 g/dL (31.0-37.0); MCV 72.8 fL (80.0-100.0); Mean Platelet Volume 6.8; Microcytosis Marked; Monocytes # (A) 0.4 k/uL (0-1.0); Monocytes % (A) 5 %; Neutrophils # (A) 6.6 k/uL (1.3-7.7); Neutrophils % (A) 79 %; Non-African American GFR(CKD) >90 (>60 ml/min/1.73 sqM); Platelet Count 367 k/uL (150-450); Poikilocytosis Moderate; Potassium 3.4 mmol/L (3.5-5.1); RBC 3.12 m/uL (4.30-5.90); RDW 20.7 % (11.5-15.5); Sodium 125 mmol/L (137-145); Total Bilirubin 0.2 mg/dL (0.2-1.3); Total Protein 4.8 g/dL (6.3-8.2); WBC 8.3 k/uL (3.8-10.6)
[2020-03-30 17:04] LABS: HGB 6.3 gm/dL (13.0-17.5)
--- NOTE | 2020-03-30 17:40 | ED ---
General Adult HPI - General Chief complaint: Recheck/Abnormal Lab/Rx Stated complaint: Sent by Dr Lennon for blood transfusion Time Seen by Provider: 03/30/20 16:12 Source: patient, RN notes reviewed, old records reviewed Mode of arrival: ambulatory Limitations: no limitations - History of Present Illness Initial comments: 39-year-old male with anemia, Crohn's disease, sent in with abnormal hemoglobin on outpatient tests at 6.0. He has received multiple transfusions. He follows with hematology. He is presenting at the recommendation of his rn rehab to receive blood transfusion. He does report some intermittent rectal bleeding, this is not worse than usual. He is on Xarelto with history of DVT and PE. Additionally he has been taking Lasix secondary to peripheral edema and ascites.he has just started on Humira approximately one month ago. - Related Data Home Medications Medication Instructions Recorded Confirmed Albuterol Inhaler (Mhu) [Ventolin 2 puff INHALATION DAILY PRN 07/30/18 03/25/20 Hfa Inhaler (Mhu)] raNITIdine HCL [Zantac] 75 mg PO HS 11/03/18 03/25/20 Ensure 1 can PO DIRECTED 11/21/18 03/25/20 Buprenorphine HCl/Naloxone HCl 8 mg SL BID 12/27/18 03/25/20 [Suboxone 8 mg-2 mg Sl Film] Rivaroxaban [Xarelto] 10 mg PO DAILY 02/05/19 03/25/20 Furosemide [Lasix] 20 mg PO DAILY 02/07/19 03/25/20 Spironolactone 25 mg PO DAILY 02/07/19 03/25/20 Adalimumab [Humira(Cf) Pen] 40 mg SQ [id number] 03/10/20 03/25/20 Allergies Allergy/AdvReac Type Severity Reaction Status Date / Time No Known Allergies Allergy Verified 03/25/20 14:38 Review of Systems ROS Statement: Those systems with pertinent positive or pertinent negative responses have been documented in the HPI. ROS Other: All systems not noted in ROS Statement are negative. Past Medical History Past Medical History: Asthma, Deep Vein Thrombosis (DVT), Pulmonary Embolus (PE) Additional Past Medical History / Comment(s): low BP, crohns, diarrhea, blood clot in left side of neck, several blood transfusion while inpatient, cirrhosis, hyponatremia History of Any Multi-Drug Resistant Organisms: None Reported Past Surgical History: Bowel Resection Additional Past Surgical History / Comment(s): colonoscopy, abscess lower left abdomen- drainage, port for TPN/later removed. Past Anesthesia/Blood Transfusion Reactions: No Reported Reaction Past Psychological History: Depression Smoking Status: Former smoker - Past Family History Mother Family Medical History: No Reported History General Exam Limitations: no limitations General appearance: alert, in no apparent distress Head exam: Present: atraumatic, normocephalic Eye exam: Present: normal appearance, PERRL Neck exam: Present: normal inspection Respiratory exam: Present: normal lung sounds bilaterally. Absent: respiratory distress, wheezes Cardiovascular Exam: Present: regular rate, normal rhythm GI/Abdominal exam: Present: soft, distended. Absent: tenderness, guarding, rebound Extremities exam: Present: normal capillary refill, pedal edema Neurological exam: Present: alert, oriented X3 Psychiatric exam: Present: normal affect, normal mood Skin exam: Present: warm, dry, intact. Absent: cyanosis, diaphoretic Course Vital Signs 03/30/20 03/30/20 03/30/20 15:58 18:11 18:21 Temperature 98.0 F 98.2 F 98.2 F Pulse Rate 75 86 78 Respiratory 18 16 16 Rate Blood Pressure 83/52 96/52 99/49 O2 Sat by Pulse 99 98 98 Oximetry 03/30/20 18:47 Temperature 98 F Pulse Rate 81 Respiratory 16 Rate Blood Pressure 94/51 O2 Sat by Pulse 96 Oximetry Procedures - [place] Protocol (Time Out) Nurse: Jesenia Queen Medical Decision Making - Medical Decision Making 39-year-old male history of Crohn's, chronic anemia, hemoglobin is 6.3. He has additional electrolyte abnormalities including hyponatremia, with a sodium of 125. Potassium 3.4. states that he's had low sodium on outpatient lab testing in his primary doctor is aware of this. Patient prefers to receive transfusion and be discharged. He does not want inpatient evaluation or treatment. - Lab Data Result diagrams: 03/30/20 16:29 03/30/20 16:29 Lab Results 03/30/20 03/30/20 03/30/20 Range/Units 16:29 16:29 16:29 WBC 8.3 (3.8-10.6) k/uL RBC 3.12 L (4.30-5.90) m/uL Hgb 6.3 L* (13.0-17.5) gm/dL Hct 22.7 L (39.0-53.0) % MCV 72.8 L (80.0-100.0) fL MCH 20.1 L (25.0-35.0) pg MCHC 27.6 L (31.0-37.0) g/dL RDW 20.7 H (11.5-15.5) % Plt Count 367 (150-450) k/uL MPV 6.8 Neutrophils % 79 % Lymphocytes % 13 % Monocytes % 5 % Eosinophils % 1 % Basophils % 0 % Neutrophils # 6.6 (1.3-7.7) k/uL Lymphocytes # 1.1 (1.0-4.8) k/uL Monocytes # 0.4 (0-1.0) k/uL Eosinophils # 0.1 (0-0.7) k/uL Basophils # 0.0 (0-0.2) k/uL Hypochromasia Marked Poikilocytosis Moderate Anisocytosis Moderate Microcytosis Marked PT 10.7 (9.0-12.0) sec INR 1.0 (<1.2) APTT 22.7 (22.0-30.0) sec Sodium 125 L (137-145) mmol/L Potassium 3.4 L (3.5-5.1) mmol/L Chloride 92 L (98-107) mmol/L Carbon Dioxide 34 H (22-30) mmol/L Anion Gap -1 mmol/L BUN 17 (9-20) mg/dL Creatinine 0.88 (0.66-1.25) mg/dL Est GFR (CKD-EPI)AfAm >90 (>60 ml/min/1.73 sqM) Est GFR (CKD-EPI)NonAf >90 (>60 ml/min/1.73 sqM) Glucose 88 (74-99) mg/dL Calcium 7.5 L (8.4-10.2) mg/dL Magnesium 2.0 (1.6-2.3) mg/dL Total Bilirubin 0.2 (0.2-1.3) mg/dL AST 28 (17-59) U/L ALT 17 (4-49) U/L Alkaline Phosphatase 70 (38-126) U/L Total Protein 4.8 L (6.3-8.2) g/dL Albumin 2.4 L (3.5-5.0) g/dL Blood Type Blood Type Recheck Bld Type Recheck Status Antibody Screen Crossmatch Spec Expiration Date 03/30/20 Range/Units 16:29 WBC (3.8-10.6) k/uL RBC (4.30-5.90) m/uL Hgb (13.0-17.5) gm/dL Hct (39.0-53.0) % MCV (80.0-100.0) fL MCH (25.0-35.0) pg MCHC (31.0-37.0) g/dL RDW (11.5-15.5) % Plt Count (150-450) k/uL MPV Neutrophils % % Lymphocytes % % Monocytes % % Eosinophils % % Basophils % % Neutrophils # (1.3-7.7) k/uL Lymphocytes # (1.0-4.8) k/uL Monocytes # (0-1.0) k/uL Eosinophils # (0-0.7) k/uL Basophils # (0-0.2) k/uL Hypochromasia Poikilocytosis Anisocytosis Microcytosis PT (9.0-12.0) sec INR (<1.2) APTT (22.0-30.0) sec Sodium (137-145) mmol/L Potassium (3.5-5.1) mmol/L Chloride (98-107) mmol/L Carbon Dioxide (22-30) mmol/L Anion Gap mmol/L BUN (9-20) mg/dL Creatinine (0.66-1.25) mg/dL Est GFR (CKD-EPI)AfAm (>60 ml/min/1.73 sqM) Est GFR (CKD-EPI)NonAf (>60 ml/min/1.73 sqM) Glucose (74-99) mg/dL Calcium (8.4-10.2) mg/dL Magnesium (1.6-2.3) mg/dL Total Bilirubin (0.2-1.3) mg/dL AST (17-59) U/L ALT (4-49) U/L Alkaline Phosphatase (38-126) U/L Total Protein (6.3-8.2) g/dL Albumin (3.5-5.0) g/dL Blood Type O Positive Blood Type Recheck O Pos Bld Type Recheck Status No Antibody Screen NEGATIVE Crossmatch See Detail Spec Expiration Date 04/02/20202328 Disposition Clinical Impression: Anemia, Crohns disease, Ascites, Hyponatremia Disposition: HOME SELF-CARE Condition: Fair Instructions (If sedation given, give patient instructions): Hyponatremia (ED), Anemia (ED) Is patient prescribed a controlled substance at d/c from ED?: No Referrals: Chuck Talbot MD [Primary Care Provider] - 1-2 days Gab Lennon MD [STAFF PHYSICIAN] - 1-2 days Time of Disposition: 19:09
[2020-03-30 21:01] VITALS: BP 91/57; PULSE 72; RESP 18; TEMP 98.2
== END 2020-03-30 20:50 | disposition home or self-care (01) ==
LOC: EC 15:33
DX: D64.9 Anemia, unspecified (principal); E87.1 Hypo-osmolality and hyponatremia; K50.90 Crohn's disease, unspecified, without complications; R18.8 Other ascites; F32.9 Major depressive disorder, single episode, unspecified; J45.909 Unspecified asthma, uncomplicated; Z79.01 Long term (current) use of anticoagulants; Z86.711 Personal history of pulmonary embolism; Z86.718 Personal history of other venous thrombosis and embolism; Z87.891 Personal history of nicotine dependence
CPT/HCPCS: 36415; 86900; 86901; 80053; 83735; 85025; 85610; 85730; 86850; 86920; 99284; 96374; P9016; C9113

== ENCOUNTER 2020-05-10 14:23 | Emergency (ER) | payer BC, OTHER ==
[2020-05-10 14:43] VITALS: TEMP 98.1
[2020-05-10] MEDS ORDERED: SODIUM CHLORIDE 0.9% 1,000 ML IV STA (15:06)
--- NOTE | 2020-05-10 15:20 | ED ---
General Adult HPI - General Chief complaint: Weakness Stated complaint: Light headed Time Seen by Provider: 05/10/20 14:52 Source: patient Mode of arrival: ambulatory Limitations: no limitations - History of Present Illness Initial comments: Dictation was produced using [employer] dictation software. please excuse any grammatical, word or spelling errors. This patient was cared for during a federal and state declared state of emergency secondary to Covid 19 Chief Complaint: 39-year-old male past surgical history Crohn's disease, clotti ng disorder anticoagulation therapy and chronic anemia presents with dizziness History of Present Illness: This 39-year-old male his multiple comorbidities. Patient has history of chronic anemia. Patient states today he's been feeling dizzy. Patient has history of clotting disorder and takes Xarelto. No set his blood appears to be a little bit more red than usual. Patient has had chronic anemia with levels in the 6 and sevens. He's had multiple transfusions in the past patient takes Xarelto for thrombosis prophylaxis. Patient has no shortness of breath. He states that his symptoms are worse whenever his trauma about his usual activities of daily living. States he feels much better at rest. He reports that his symptoms are usually like this whenever his blood levels drop. He last had his blood levels checked and is him alone was 7.2 last week. The ROS documented in this emergency department record has been reviewed and confirmed by me. Those systems with pertinent positive or negative responses have been documented in the HPI. All other systems are other negative and/or noncontributory. PHYSICAL EXAM: General Impression: Alert and oriented x3, not in acute distress HEENT: Normocephalic atraumatic, extra-ocular movements intact, pupils equal and reactive to light bilaterally, mucous membranes moist. Cardiovascular: Heart regular rate and rhythm Chest: Able to complete full sentences, no retractions, no tachypnea Abdomen: abdomen soft, non-tender, non-distended, no organomegaly Musculoskeletal: Pulses present and equal in all extremities, no peripheral edema Motor: no focal deficits noted Neurological: CN II-XII grossly intact, no focal motor or sensory deficits noted Skin: Intact with no visualized rashes Psych: Normal affect and mood ED course: 39-year-old male past medical history of panic regulation medication, chronic anemia presents to the emergency department for dizziness. Vital signs upon arrival are within acceptable limits. EKG interpretation: Ventricular rate 94, normal sinus rhythm, right bundle branch block,. 114, QRS 1:30, QTc 445. No OR prolongation, no QTC prolongation, no ST or T-wave changes noted. Compared to EKG from 11/13/2018 with no changes. Overall, this EKG is unremarkable Laboratory evaluation obtained. Mild leukocytosis of 14.0 likely secondary to stress. Involvement is 8.1 which is improved from last month. Rest of CBC appears to be within acceptable limits. Coag panel is unremarkable. Metabolic panel is unremarkable. Patient does have some hypocalcemia but when corrected for albumin is normal. Still, blood is positive however he has history of Crohn's. At this point patient's labs and workup appears to be improved from his usual baseline. Disposition options were discussed. Patient is agreeable for discharge. Return parameters discussed. - Related Data Home Medications Medication Instructions Recorded Confirmed Buprenorphine HCl/Naloxone HCl 1 film SL BID 12/27/18 05/10/20 [Suboxone 8 mg-2 mg Sl Film] Rivaroxaban [Xarelto] 10 mg PO HS 02/05/19 05/10/20 Spironolactone 50 mg PO DAILY 02/07/19 04/22/20 Adalimumab [Humira(Cf) Pen] 40 mg SQ Q14D 03/10/20 05/10/20 Albuterol Inhaler [Ventolin Hfa 2 puff INHALATION RT-Q4H PRN 05/10/20 05/10/20 Inhaler] Famotidine 40 mg PO DAILY 05/10/20 05/10/20 Furosemide [Lasix] 20 mg PO DAILY 05/10/20 05/10/20 Midodrine [ProAmatine] 5 mg PO BID 05/10/20 05/10/20 metOLazone [Zaroxolyn] 5 mg PO Q48H PRN 05/10/20 05/10/20 Allergies Allergy/AdvReac Type Severity Reaction Status Date / Time No Known Allergies Allergy Verified 05/10/20 15:58 Review of Systems ROS Statement: Those systems with pertinent positive or pertinent negative responses have been documented in the HPI. ROS Other: All systems not noted in ROS Statement are negative. Past Medical History Past Medical History: Asthma, Deep Vein Thrombosis (DVT), Pulmonary Embolus (PE) Additional Past Medical History / Comment(s): low BP, crohns, diarrhea, blood clot in left side of neck, several blood transfusion while inpatient, cirrhosis, hyponatremia History of Any Multi-Drug Resistant Organisms: None Reported Past Surgical History: Bowel Resection Additional Past Surgical History / Comment(s): colonoscopy, abscess lower left abdomen- drainage, port for TPN/later removed. Past Anesthesia/Blood Transfusion Reactions: No Reported Reaction Past Psychological History: Depression Smoking Status: Current every day smoker Past Alcohol Use History: None Reported Past Drug Use History: Heroin - Past Family History Mother Family Medical History: No Reported History General Exam Limitations: no limitations Course Vital Signs 05/10/20 05/10/20 14:37 15:54 Temperature 98.1 F Pulse Rate 98 93 Respiratory 20 18 Rate Blood Pressure 98/62 103/58 O2 Sat by Pulse 99 99 Oximetry Medical Decision Making - Lab Data Result diagrams: 05/10/20 15:22 05/10/20 15:22 Lab Results 05/10/20 05/10/20 05/10/20 Range/Units 15:22 15:22 15:22 WBC 14.0 H (3.8-10.6) k/uL RBC 3.59 L (4.30-5.90) m/uL Hgb 8.1 L D (13.0-17.5) gm/dL Hct 27.7 L (39.0-53.0) % MCV 77.1 L (80.0-100.0) fL MCH 22.6 L (25.0-35.0) pg MCHC 29.3 L (31.0-37.0) g/dL RDW 20.1 H (11.5-15.5) % Plt Count 390 (150-450) k/uL MPV 6.9 Neutrophils % 85 % Lymphocytes % 8 % Monocytes % 3 % Eosinophils % 2 % Basophils % 1 % Neutrophils # 11.9 H (1.3-7.7) k/uL Lymphocytes # 1.1 (1.0-4.8) k/uL Monocytes # 0.5 (0-1.0) k/uL Eosinophils # 0.3 (0-0.7) k/uL Basophils # 0.1 (0-0.2) k/uL Hypochromasia Marked Poikilocytosis Slight Anisocytosis Moderate Microcytosis Moderate PT 9.6 (9.0-12.0) sec INR 0.9 (<1.2) APTT 21.6 L (22.0-30.0) sec Sodium 134 L (137-145) mmol/L Potassium 4.0 (3.5-5.1) mmol/L Chloride 101 (98-107) mmol/L Carbon Dioxide 32 H (22-30) mmol/L Anion Gap 1 mmol/L BUN 14 (9-20) mg/dL Creatinine 0.86 (0.66-1.25) mg/dL Est GFR (CKD-EPI)AfAm >90 (>60 ml/min/1.73 sqM) Est GFR (CKD-EPI)NonAf >90 (>60 ml/min/1.73 sqM) Glucose 101 H (74-99) mg/dL POC Glucose (mg/dL) (75-99) mg/dL POC Glu Account Support Specialist ID Plasma Lactic Acid Georges (0.7-2.0) mmol/L Calcium 7.9 L (8.4-10.2) mg/dL Ionized Calcium Silver 4.6 (4.5-5.3) mg/dL Magnesium 1.9 (1.6-2.3) mg/dL Total Bilirubin 0.2 (0.2-1.3) mg/dL AST 38 (17-59) U/L ALT 16 (4-49) U/L Alkaline Phosphatase 71 (38-126) U/L Total Protein 4.8 L (6.3-8.2) g/dL Albumin 2.3 L (3.5-5.0) g/dL Stool Occult Blood (Negative) 05/10/20 05/10/20 05/10/20 Range/Units 15:22 15:22 15:28 WBC (3.8-10.6) k/uL RBC (4.30-5.90) m/uL Hgb (13.0-17.5) gm/dL Hct (39.0-53.0) % MCV (80.0-100.0) fL MCH (25.0-35.0) pg MCHC (31.0-37.0) g/dL RDW (11.5-15.5) % Plt Count (150-450) k/uL MPV Neutrophils % % Lymphocytes % % Monocytes % % Eosinophils % % Basophils % % Neutrophils # (1.3-7.7) k/uL Lymphocytes # (1.0-4.8) k/uL Monocytes # (0-1.0) k/uL Eosinophils # (0-0.7) k/uL Basophils # (0-0.2) k/uL Hypochromasia Poikilocytosis Anisocytosis Microcytosis PT (9.0-12.0) sec INR (<1.2) APTT (22.0-30.0) sec Sodium (137-145) mmol/L Potassium (3.5-5.1) mmol/L Chloride (98-107) mmol/L Carbon Dioxide (22-30) mmol/L Anion Gap mmol/L BUN (9-20) mg/dL Creatinine (0.66-1.25) mg/dL Est GFR (CKD-EPI)AfAm (>60 ml/min/1.73 sqM) Est GFR (CKD-EPI)NonAf (>60 ml/min/1.73 sqM) Glucose (74-99) mg/dL POC Glucose (mg/dL) 135 H (75-99) mg/dL POC Glu Account Support Specialist ID Soha Tavarez Plasma Lactic Acid Georges 1.0 (0.7-2.0) mmol/L Calcium (8.4-10.2) mg/dL Ionized Calcium Silver (4.5-5.3) mg/dL Magnesium (1.6-2.3) mg/dL Total Bilirubin (0.2-1.3) mg/dL AST (17-59) U/L ALT (4-49) U/L Alkaline Phosphatase (38-126) U/L Total Protein (6.3-8.2) g/dL Albumin (3.5-5.0) g/dL Stool Occult Blood Positive (Negative) Disposition Clinical Impression: Dizziness Disposition: HOME SELF-CARE Condition: Good Instructions (If sedation given, give patient instructions): Anemia (ED) Is patient prescribed a controlled substance at d/c from ED?: No Referrals: Chuck Talbot MD [Primary Care Provider] - 1-2 days Time of Disposition: 16:02
[2020-05-10 15:32] LABS: Anisocytosis Moderate; Basophils # (A) 0.1 k/uL (0-0.2); Basophils % (A) 1 %; Eosinophils # (A) 0.3 k/uL (0-0.7); Eosinophils % (A) 2 %; HCT 27.7 % (39.0-53.0); Hypochromasia Marked; Lymphocytes # (A) 1.1 k/uL (1.0-4.8); Lymphocytes % (A) 8 %; MCH 22.6 pg (25.0-35.0); MCHC 29.3 g/dL (31.0-37.0); MCV 77.1 fL (80.0-100.0); Mean Platelet Volume 6.9; Microcytosis Moderate; Monocytes # (A) 0.5 k/uL (0-1.0); Monocytes % (A) 3 %; Neutrophils # (A) 11.9 k/uL (1.3-7.7); Neutrophils % (A) 85 %; Platelet Count 390 k/uL (150-450); Poikilocytosis Slight; RBC 3.59 m/uL (4.30-5.90); RDW 20.1 % (11.5-15.5)
[2020-05-10 15:35] LABS: Ionized Calcium 4.6 mg/dL (4.5-5.3)
[2020-05-10 15:42] LABS: Glucose,Whole Blood 135 mg/dL (75-99)
[2020-05-10 15:43] LABS: ALT 16 U/L (4-49); AST 38 U/L (17-59); African American GFR (CKD) >90 (>60 ml/min/1.73 sqM); Albumin 2.3 g/dL (3.5-5.0); Alkaline Phosphatase 71 U/L (38-126); Anion Gap 1 mmol/L; Blood Urea Nitrogen 14 mg/dL (9-20); Calcium 7.9 mg/dL (8.4-10.2); Carbon Dioxide 32 mmol/L (22-30); Chloride 101 mmol/L (98-107); Glucose 101 mg/dL (74-99); Magnesium 1.9 mg/dL (1.6-2.3); Non-African American GFR(CKD) >90 (>60 ml/min/1.73 sqM); Sodium 134 mmol/L (137-145); Total Bilirubin 0.2 mg/dL (0.2-1.3); Total Protein 4.8 g/dL (6.3-8.2)
[2020-05-10 15:48] LABS: INR 0.9 (<1.2); Prothrombin Time 9.6 sec (9.0-12.0)
[2020-05-10 15:52] LABS: HGB 8.1 gm/dL (13.0-17.5)
[2020-05-10 15:53] LABS: Partial Thromboplastin Time 21.6 sec (22.0-30.0)
[2020-05-10 15:56] VITALS: BP 103/58; PULSE 93; RESP 18
== END 2020-05-10 16:14 | disposition home or self-care (01) ==
LOC: EC 14:23
DX: R42 Dizziness and giddiness (principal); I45.10 Unspecified right bundle-branch block; D72.829 Elevated white blood cell count, unspecified; E83.51 Hypocalcemia; J45.909 Unspecified asthma, uncomplicated; K50.90 Crohn's disease, unspecified, without complications; F17.200 Nicotine dependence, unspecified, uncomplicated; Z79.899 Other long term (current) drug therapy; Z79.01 Long term (current) use of anticoagulants; Z86.718 Personal history of other venous thrombosis and embolism; Z86.711 Personal history of pulmonary embolism
CPT/HCPCS: 36415; 80053; 82272; 82330; 83605; 83735; 85025; 85610; 85730; 86850; 86900; 86901; 93005; 96360; 99285

== ENCOUNTER 2020-05-20 15:10 | Emergency (ER) | payer BC, OTHER ==
[2020-05-20] MEDS ORDERED: SODIUM CHLORIDE 0.9% 500 ML 500 ML IV STA (15:37)
--- NOTE | 2020-05-20 15:37 | ED ---
Recheck HPI - General Chief Complaint: Recheck/Abnormal Lab/Rx Stated Complaint: Need Blood transfusion Time Seen by Provider: 05/20/20 15:23 Source: patient, RN notes reviewed Mode of arrival: ambulatory Limitations: no limitations - History of Present Illness Initial Comments: 39-year-old male with a history of Crohn's disease and anemia with his last transfusion being about one month ago who presents with complaints of feeling fatigued and weak was found have a hemoglobin level V.4 to a blood draw done today. He has any fevers chills sweats lightheadedness and shortness of breath or other symptoms - Related Data Home Medications Medication Instructions Recorded Confirmed Buprenorphine HCl/Naloxone HCl 1 film SL BID 12/27/18 05/20/20 [Suboxone 8 mg-2 mg Sl Film] Rivaroxaban [Xarelto] 10 mg PO HS 02/05/19 05/20/20 Spironolactone 50 mg PO DAILY 02/07/19 05/20/20 Adalimumab [Humira(Cf) Pen] 40 mg SQ Q14D 03/10/20 05/20/20 Albuterol Inhaler [Ventolin Hfa 2 puff INHALATION RT-Q4H PRN 05/10/20 05/20/20 Inhaler] Famotidine 40 mg PO DAILY 05/10/20 05/20/20 Furosemide [Lasix] 20 mg PO DAILY 05/10/20 05/20/20 Midodrine [ProAmatine] 5 mg PO BID 05/10/20 05/20/20 metOLazone [Zaroxolyn] 5 mg PO Q48H PRN 05/10/20 05/20/20 Allergies Allergy/AdvReac Type Severity Reaction Status Date / Time No Known Allergies Allergy Verified 05/20/20 16:09 Review of Systems ROS Statement: Those systems with pertinent positive or pertinent negative responses have been documented in the HPI. ROS Other: All systems not noted in ROS Statement are negative. Past Medical History Past Medical History: Asthma, Deep Vein Thrombosis (DVT), Pulmonary Embolus (PE) Additional Past Medical History / Comment(s): low BP, crohns, diarrhea, blood clot in left side of neck, several blood transfusion while inpatient, cirrhosis, hyponatremia History of Any Multi-Drug Resistant Organisms: None Reported Past Surgical History: Bowel Resection Additional Past Surgical History / Comment(s): colonoscopy, abscess lower left abdomen- drainage, port for TPN/later removed. Past Anesthesia/Blood Transfusion Reactions: No Reported Reaction Past Psychological History: Depression Smoking Status: Current every day smoker Past Alcohol Use History: None Reported Past Drug Use History: Heroin - Past Family History Mother Family Medical History: No Reported History General Exam - General Exam Comments Initial Comments: This is a well-developed asthenic appearing male who is awake alert oriented 3 Limitations: no limitations General appearance: alert, in no apparent distress Head exam: Present: atraumatic, normocephalic, normal inspection Eye exam: Present: normal appearance, PERRL, EOMI. Absent: scleral icterus, conjunctival injection, periorbital swelling ENT exam: Present: normal exam, mucous membranes moist Neck exam: Present: normal inspection. Absent: tenderness, meningismus, lymphadenopathy Respiratory exam: Present: normal lung sounds bilaterally. Absent: respiratory distress, wheezes, rales, rhonchi, stridor Cardiovascular Exam: Present: regular rate, normal rhythm, normal heart sounds. Absent: systolic murmur, diastolic murmur, rubs, gallop, clicks GI/Abdominal exam: Present: soft, normal bowel sounds. Absent: distended, tenderness, guarding, rebound, rigid Extremities exam: Present: normal inspection, full ROM, normal capillary refill. Absent: tenderness, pedal edema, joint swelling, calf tenderness Back exam: Present: normal inspection Neurological exam: Present: alert, oriented X3, CN II-XII intact Psychiatric exam: Present: normal affect, normal mood Skin exam: Present: warm, dry, intact, pallor. Absent: rash Course Vital Signs 05/20/20 05/20/20 05/20/20 15:17 16:45 17:11 Temperature 99.4 F 98.4 F Pulse Rate 96 81 79 Respiratory 18 16 18 Rate Blood Pressure 97/59 104/58 84/59 O2 Sat by Pulse 99 96 94 L Oximetry 05/20/20 05/20/20 05/20/20 17:21 17:51 18:11 Temperature 98.4 F 98.2 F 98.2 F Pulse Rate 77 73 76 Respiratory 16 16 16 Rate Blood Pressure 83/49 91/51 91/57 O2 Sat by Pulse 98 96 99 Oximetry 05/20/20 05/20/20 05/20/20 18:53 19:47 19:55 Temperature 98.3 F 98.5 F 98.2 F Pulse Rate 76 75 74 Respiratory 16 18 16 Rate Blood Pressure 93/54 93/54 87/58 O2 Sat by Pulse 99 95 97 Oximetry 05/20/20 20:05 Temperature 98.4 F Pulse Rate 78 Respiratory 18 Rate Blood Pressure 87/50 O2 Sat by Pulse 98 Oximetry Medical Decision Making - Medical Decision Making The patient will be discharged after the second unit of blood. A note was given for his use for work tomorrow. He is tolerating the transfusion - Lab Data Lab Results 05/20/20 Range/Units 16:11 Blood Type O Positive Blood Type Recheck O Pos Bld Type Recheck Status No Antibody Screen NEGATIVE Crossmatch See Detail Spec Expiration Date 05/23/20202302 Disposition Clinical Impression: Anemia Disposition: HOME SELF-CARE Condition: Good Instructions (If sedation given, give patient instructions): Anemia (ED), Blood Transfusion (DC) Is patient prescribed a controlled substance at d/c from ED?: No Referrals: Chuck Talbot MD [Primary Care Provider] - 1-2 days
[2020-05-20 20:08] VITALS: RESP 18
[2020-05-20 21:48] VITALS: BP 92/58; PULSE 72; TEMP 98.2
== END 2020-05-20 22:25 | disposition home or self-care (01) ==
LOC: EC 15:10
DX: D64.9 Anemia, unspecified (principal); K50.90 Crohn's disease, unspecified, without complications; J45.909 Unspecified asthma, uncomplicated; F17.200 Nicotine dependence, unspecified, uncomplicated; Z79.899 Other long term (current) drug therapy; Z79.01 Long term (current) use of anticoagulants; Z86.711 Personal history of pulmonary embolism; Z86.718 Personal history of other venous thrombosis and embolism
CPT/HCPCS: 86900; 86901; 86850; 86920; 99284; 96360; 36430; P9016

== ENCOUNTER 2020-07-13 15:36 | Inpatient (IN) | payer BC, OTHER ==
--- NOTE | 2020-07-13 17:24 | ED ---
General Adult HPI - General Chief complaint: Chest Pain Stated complaint: SOB,Chest pain Time Seen by Provider: 07/13/20 15:50 Source: patient, RN notes reviewed, old records reviewed Mode of arrival: wheelchair Limitations: no limitations - History of Present Illness Initial comments: This is a 39-year-old male with past medical history significant for heroin abuse he last used 2 years ago. Patient also states he has a long-standing history of Crohn's anemia and blood clots. Patient also states she's had ascites and had his abdomen drained because he was told once he had some cirrhosis and a blood clot in his liver. Patient also states he's noticed recently that he has a ventral hernia. Patient comes in today because feeling much more fatigued and having chest heaviness. Patient also states he feels short of breath. Patient denies any recent fever chills or cough. Patient denies any new abdominal pain. Patient states the ventral hernia seems to be larger than normal. Patient denies headache patient denies numbness weakness. Patient denies any back pain. - Related Data Home Medications Medication Instructions Recorded Confirmed Spironolactone 50 mg PO DAILY 02/07/19 07/13/20 Adalimumab [Humira(Cf) Pen] 40 mg SQ Q14D 03/10/20 07/13/20 Albuterol Inhaler [Ventolin Hfa 2 puff INHALATION RT-Q4H PRN 05/10/20 07/13/20 Inhaler] Famotidine 40 mg PO DAILY 05/10/20 07/13/20 metOLazone [Zaroxolyn] 5 mg PO Q48H PRN 05/10/20 07/13/20 LORazepam [Ativan] 1 mg PO HS PRN 07/13/20 07/13/20 buprenorphine HCL [Subutex] 8 mg PO TID 07/13/20 07/13/20 Allergies Allergy/AdvReac Type Severity Reaction Status Date / Time No Known Allergies Allergy Verified 07/13/20 18:04 Review of Systems ROS Statement: Those systems with pertinent positive or pertinent negative responses have been documented in the HPI. ROS Other: All systems not noted in ROS Statement are negative. Past Medical History Past Medical History: Asthma, Deep Vein Thrombosis (DVT), Pulmonary Embolus (PE) Additional Past Medical History / Comment(s): low BP, crohns, diarrhea, blood clot in left side of neck, several blood transfusion while inpatient, cirrhosis, hyponatremia History of Any Multi-Drug Resistant Organisms: None Reported Past Surgical History: Bowel Resection Additional Past Surgical History / Comment(s): colonoscopy, abscess lower left abdomen- drainage, port for TPN/later removed. Past Anesthesia/Blood Transfusion Reactions: No Reported Reaction Past Psychological History: Depression Smoking Status: Current every day smoker Past Alcohol Use History: None Reported Past Drug Use History: None Reported - Past Family History Mother Family Medical History: No Reported History Father Family Medical History: Congestive Heart Failure (CHF) General Exam - General Exam Comments Initial Comments: GENERAL: Patient is well-developed and well-nourished. Patient is nontoxic and well- hydrated and is in mild distress. ENT: Neck is soft and supple. No significant lymphadenopathy is noted. Oropharynx is clear. Moist mucous membranes. Neck has full range of motion without meli citing any pain. EYES: The sclera were anicteric and conjunctiva were pink and moist. Extraocular movements were intact and pupils were equal round and reactive to light. Eyelids were unremarkable. PULMONARY: Unlabored respirations. Good breath sounds bilaterally. No audible rales rhonchi or wheezing was noted. CARDIOVASCULAR: There is a regular rate and rhythm without any murmurs gallops or rubs. ABDOMEN: Soft and nontender with normal bowel sounds. Abdomen is mildly distended. No palpable organomegaly was noted. Patient has an obvious ventral hernia SKIN: Patient's skin is pale NEUROLOGIC: Patient is alert and oriented x3. Cranial nerves II through XII are grossly intact. Motor and sensory are also intact. Normal speech, volume and content. Symmetrical smile. MUSCULOSKELETAL: Normal extremities with adequate strength and full range of motion. Scant bilateral or edema LYMPHATICS: No significant lymphadenopathy is noted PSYCHIATRIC: Normal psychiatric evaluation. Limitations: no limitations Course Vital Signs 07/13/20 07/13/20 07/13/20 15:49 19:29 20:58 Temperature 98.2 F Pulse Rate 95 77 80 Respiratory 18 18 18 Rate Blood Pressure 90/53 86/56 94/60 O2 Sat by Pulse 98 98 98 Oximetry Medical Decision Making - Medical Decision Making EKG shows sinus rhythm at 76 bpm NC interval 200 thank you is under 40 QT interval is 398 QTC is 447. Patient's EKG shows no ST segment elevation or depression. I contacted [facility] hospitalist and admitted the patient I wrote admitting orders. - Lab Data Result diagrams: 07/14/20 04:41 07/14/20 04:41 Lab Results 07/13/20 07/13/20 07/13/20 Range/Units 17:20 17:22 17:22 WBC 7.6 (3.8-10.6) k/uL RBC 3.72 L (4.30-5.90) m/uL Hgb 7.6 L (13.0-17.5) gm/dL Hct 26.8 L (39.0-53.0) % MCV 72.2 L (80.0-100.0) fL MCH 20.3 L (25.0-35.0) pg MCHC 28.2 L (31.0-37.0) g/dL RDW 18.8 H (11.5-15.5) % Plt Count 353 (150-450) k/uL MPV 7.2 Absolute Nucleated RBC (0.00-0.00) X 10*3/uL Neutrophils % 77 % Lymphocytes % 12 % Monocytes % 8 % Eosinophils % 2 % Basophils % 1 % Neutrophils # 5.9 (1.3-7.7) k/uL Lymphocytes # 0.9 L (1.0-4.8) k/uL Monocytes # 0.6 (0-1.0) k/uL Eosinophils # 0.1 (0-0.7) k/uL Basophils # 0.0 (0-0.2) k/uL NRBC/100 WBC Diff (0.0-0.0) /100 WBCS Hypochromasia Marked Poikilocytosis Moderate Anisocytosis Slight Microcytosis Moderate PT 11.1 (9.0-12.0) sec INR 1.0 (<1.2) APTT 22.3 (22.0-30.0) sec Sodium (137-145) mmol/L Potassium (3.5-5.1) mmol/L Chloride (98-107) mmol/L Carbon Dioxide (22-30) mmol/L Anion Gap mmol/L BUN (9-20) mg/dL Creatinine (0.66-1.25) mg/dL Est GFR (CKD-EPI)AfAm (>60 ml/min/1.73 sqM) Est GFR (CKD-EPI)NonAf (>60 ml/min/1.73 sqM) BUN/Creatinine Ratio (12.00-20.00) Ratio Glucose (74-99) mg/dL POC Glucose (mg/dL) (75-99) mg/dL POC Glu Helpdesk Manager ID Osmolality ([phone]) mosm/kg Calcium (8.4-10.2) mg/dL Magnesium (1.6-2.3) mg/dL Iron (65-175) ug/dL TIBC (228-460) ug/dL % Saturation (15.00-50.00) Ferritin (22.0-322.0) ng/mL Total Bilirubin (0.2-1.3) mg/dL AST (17-59) U/L ALT (4-49) U/L Alkaline Phosphatase (38-126) U/L Troponin I (0.000-0.034) ng/mL NT-Pro-B Natriuret Pep pg/mL Total Protein (6.3-8.2) g/dL Albumin (3.5-5.0) g/dL Globulin (1.6-3.3) g/dL Albumin/Globulin Ratio (1.60-3.17) g/dL Triglycerides (0.0-149.0) mg/dL Cholesterol (0-200) mg/dL LDL Cholesterol, Calc (0.0-131.0) mg/dL VLDL Cholesterol, Calc (5.00-40.00) mg/dL HDL Cholesterol (40.0-60.0) mg/dL Cholesterol/HDL Ratio Urine Osmolality (50-1400) mosm/kg Ur Random Creatinine mg/dL Ur Random Urea Nitrogn mg/dL Coronavirus (PCR) (Not Detectd) Blood Type O Positive Blood Type Recheck O Pos Bld Type Recheck Status No Antibody Screen NEGATIVE Crossmatch See Detail Spec Expiration Date 07/16/2020 - 231907/13/20 07/13/20 07/13/20 Range/Units 17:22 17:22 17:22 WBC (3.8-10.6) k/uL RBC (4.30-5.90) m/uL Hgb (13.0-17.5) gm/dL Hct (39.0-53.0) % MCV (80.0-100.0) fL MCH (25.0-35.0) pg MCHC (31.0-37.0) g/dL RDW (11.5-15.5) % Plt Count (150-450) k/uL MPV Absolute Nucleated RBC (0.00-0.00) X 10*3/uL Neutrophils % % Lymphocytes % % Monocytes % % Eosinophils % % Basophils % % Neutrophils # (1.3-7.7) k/uL Lymphocytes # (1.0-4.8) k/uL Monocytes # (0-1.0) k/uL Eosinophils # (0-0.7) k/uL Basophils # (0-0.2) k/uL NRBC/100 WBC Diff (0.0-0.0) /100 WBCS Hypochromasia Poikilocytosis Anisocytosis Microcytosis PT (9.0-12.0) sec INR (<1.2) APTT (22.0-30.0) sec Sodium 128 L (137-145) mmol/L Potassium 3.3 L (3.5-5.1) mmol/L Chloride 92 L (98-107) mmol/L Carbon Dioxide 33 H (22-30) mmol/L Anion Gap 3 mmol/L BUN 13 (9-20) mg/dL Creatinine 0.81 (0.66-1.25) mg/dL Est GFR (CKD-EPI)AfAm >90 (>60 ml/min/1.73 sqM) Est GFR (CKD-EPI)NonAf >90 (>60 ml/min/1.73 sqM) BUN/Creatinine Ratio (12.00-20.00) Ratio Glucose 95 (74-99) mg/dL POC Glucose (mg/dL) (75-99) mg/dL POC Glu Helpdesk Manager ID Osmolality ([phone]) mosm/kg Calcium 7.4 L (8.4-10.2) mg/dL Magnesium 1.8 (1.6-2.3) mg/dL Iron (65-175) ug/dL TIBC (228-460) ug/dL % Saturation (15.00-50.00) Ferritin (22.0-322.0) ng/mL Total Bilirubin 0.2 (0.2-1.3) mg/dL AST 28 (17-59) U/L ALT 16 (4-49) U/L Alkaline Phosphatase 73 (38-126) U/L Troponin I <0.012 (0.000-0.034) ng/mL NT-Pro-B Natriuret Pep 51 pg/mL Total Protein 4.8 L (6.3-8.2) g/dL Albumin 2.3 L (3.5-5.0) g/dL Globulin (1.6-3.3) g/dL Albumin/Globulin Ratio (1.60-3.17) g/dL Triglycerides (0.0-149.0) mg/dL Cholesterol (0-200) mg/dL LDL Cholesterol, Calc (0.0-131.0) mg/dL VLDL Cholesterol, Calc (5.00-40.00) mg/dL HDL Cholesterol (40.0-60.0) mg/dL Cholesterol/HDL Ratio Urine Osmolality (50-1400) mosm/kg Ur Random Creatinine mg/dL Ur Random Urea Nitrogn mg/dL Coronavirus (PCR) (Not Detectd) Blood Type Blood Type Recheck Bld Type Recheck Status Antibody Screen Crossmatch Spec Expiration Date 07/13/20 07/13/20 07/13/20 Range/Units 19:46 20:25 23:25 WBC (3.8-10.6) k/uL RBC (4.30-5.90) m/uL Hgb (13.0-17.5) gm/dL Hct (39.0-53.0) % MCV (80.0-100.0) fL MCH (25.0-35.0) pg MCHC (31.0-37.0) g/dL RDW (11.5-15.5) % Plt Count (150-450) k/uL MPV Absolute Nucleated RBC (0.00-0.00) X 10*3/uL Neutrophils % % Lymphocytes % % Monocytes % % Eosinophils % % Basophils % % Neutrophils # (1.3-7.7) k/uL Lymphocytes # (1.0-4.8) k/uL Monocytes # (0-1.0) k/uL Eosinophils # (0-0.7) k/uL Basophils # (0-0.2) k/uL NRBC/100 WBC Diff (0.0-0.0) /100 WBCS Hypochromasia Poikilocytosis Anisocytosis Microcytosis PT (9.0-12.0) sec INR (<1.2) APTT (22.0-30.0) sec Sodium (137-145) mmol/L Potassium (3.5-5.1) mmol/L Chloride (98-107) mmol/L Carbon Dioxide (22-30) mmol/L Anion Gap mmol/L BUN (9-20) mg/dL Creatinine (0.66-1.25) mg/dL Est GFR (CKD-EPI)AfAm (>60 ml/min/1.73 sqM) Est GFR (CKD-EPI)NonAf (>60 ml/min/1.73 sqM) BUN/Creatinine Ratio (12.00-20.00) Ratio Glucose (74-99) mg/dL POC Glucose (mg/dL) (75-99) mg/dL POC Glu Helpdesk Manager ID Osmolality ([phone]) mosm/kg Calcium (8.4-10.2) mg/dL Magnesium (1.6-2.3) mg/dL Iron (65-175) ug/dL TIBC (228-460) ug/dL % Saturation (15.00-50.00) Ferritin (22.0-322.0) ng/mL Total Bilirubin (0.2-1.3) mg/dL AST (17-59) U/L ALT (4-49) U/L Alkaline Phosphatase (38-126) U/L Troponin I <0.012 <0.012 (0.000-0.034) ng/mL NT-Pro-B Natriuret Pep pg/mL Total Protein (6.3-8.2) g/dL Albumin (3.5-5.0) g/dL Globulin (1.6-3.3) g/dL Albumin/Globulin Ratio (1.60-3.17) g/dL Triglycerides (0.0-149.0) mg/dL Cholesterol (0-200) mg/dL LDL Cholesterol, Calc (0.0-131.0) mg/dL VLDL Cholesterol, Calc (5.00-40.00) mg/dL HDL Cholesterol (40.0-60.0) mg/dL Cholesterol/HDL Ratio Urine Osmolality (50-1400) mosm/kg Ur Random Creatinine mg/dL Ur Random Urea Nitrogn mg/dL Coronavirus (PCR) Not Detected (Not Detectd) Blood Type Blood Type Recheck Bld Type Recheck Status Antibody Screen Crossmatch Spec Expiration Date 07/14/20 07/14/20 07/14/20 Range/Units 04:41 04:41 04:41 WBC 7.50 (3.8-10.6) k/uL RBC 3.06 L (4.30-5.90) m/uL Hgb 6.2 L* (13.0-17.5) gm/dL Hct 22.2 L (39.0-53.0) % MCV 72.5 L (80.0-100.0) fL MCH 20.3 L (25.0-35.0) pg MCHC 27.9 L (31.0-37.0) g/dL RDW 19.9 H (11.5-15.5) % Plt Count 277 (150-450) k/uL MPV 9.5 Absolute Nucleated RBC 0 (0.00-0.00) X 10*3/uL Neutrophils % % Lymphocytes % % Monocytes % % Eosinophils % % Basophils % % Neutrophils # (1.3-7.7) k/uL Lymphocytes # (1.0-4.8) k/uL Monocytes # (0-1.0) k/uL Eosinophils # (0-0.7) k/uL Basophils # (0-0.2) k/uL NRBC/100 WBC Diff 0 (0.0-0.0) /100 WBCS Hypochromasia Poikilocytosis Anisocytosis Microcytosis PT (9.0-12.0) sec INR (<1.2) APTT (22.0-30.0) sec Sodium 132 L (137-145) mmol/L Potassium 3.7 (3.5-5.1) mmol/L Chloride 99 (98-107) mmol/L Carbon Dioxide 31.0 (22-30) mmol/L Anion Gap 2.00 L mmol/L BUN 11.0 (9-20) mg/dL Creatinine 0.5 L (0.66-1.25) mg/dL Est GFR (CKD-EPI)AfAm 158.2 (>60 ml/min/1.73 sqM) Est GFR (CKD-EPI)NonAf 136.5 (>60 ml/min/1.73 sqM) BUN/Creatinine Ratio 22.00 H (12.00-20.00) Ratio Glucose 83 (74-99) mg/dL POC Glucose (mg/dL) (75-99) mg/dL POC Glu Helpdesk Manager ID Osmolality 270 L (280-301) mosm/kg Calcium 7.4 L (8.4-10.2) mg/dL Magnesium 1.6 (1.6-2.3) mg/dL Iron 6 L (65-175) ug/dL TIBC 228 (228-460) ug/dL % Saturation 2.63 L (15.00-50.00) Ferritin 3.7 L (22.0-322.0) ng/mL Total Bilirubin 0.1 L (0.2-1.3) mg/dL AST 19 (17-59) U/L ALT 17 (4-49) U/L Alkaline Phosphatase 59 (38-126) U/L Troponin I (0.000-0.034) ng/mL NT-Pro-B Natriuret Pep pg/mL Total Protein 4.2 L (6.3-8.2) g/dL Albumin 2.00 L (3.5-5.0) g/dL Globulin 2.2 (1.6-3.3) g/dL Albumin/Globulin Ratio 0.91 L (1.60-3.17) g/dL Triglycerides 58.0 (0.0-149.0) mg/dL Cholesterol 95 (0-200) mg/dL LDL Cholesterol, Calc 40.4 (0.0-131.0) mg/dL VLDL Cholesterol, Calc 11.60 (5.00-40.00) mg/dL HDL Cholesterol 43.0 (40.0-60.0) mg/dL Cholesterol/HDL Ratio 2.21 Urine Osmolality (50-1400) mosm/kg Ur Random Creatinine mg/dL Ur Random Urea Nitrogn mg/dL Coronavirus (PCR) (Not Detectd) Blood Type Blood Type Recheck Bld Type Recheck Status Antibody Screen Crossmatch Spec Expiration Date 07/14/20 07/14/20 07/14/20 Range/Units 06:27 06:27 07:17 WBC (3.8-10.6) k/uL RBC (4.30-5.90) m/uL Hgb (13.0-17.5) gm/dL Hct (39.0-53.0) % MCV (80.0-100.0) fL MCH (25.0-35.0) pg MCHC (31.0-37.0) g/dL RDW (11.5-15.5) % Plt Count (150-450) k/uL MPV Absolute Nucleated RBC (0.00-0.00) X 10*3/uL Neutrophils % % Lymphocytes % % Monocytes % % Eosinophils % % Basophils % % Neutrophils # (1.3-7.7) k/uL Lymphocytes # (1.0-4.8) k/uL Monocytes # (0-1.0) k/uL Eosinophils # (0-0.7) k/uL Basophils # (0-0.2) k/uL NRBC/100 WBC Diff (0.0-0.0) /100 WBCS Hypochromasia Poikilocytosis Anisocytosis Microcytosis PT (9.0-12.0) sec INR (<1.2) APTT (22.0-30.0) sec Sodium (137-145) mmol/L Potassium (3.5-5.1) mmol/L Chloride (98-107) mmol/L Carbon Dioxide (22-30) mmol/L Anion Gap mmol/L BUN (9-20) mg/dL Creatinine (0.66-1.25) mg/dL Est GFR (CKD-EPI)AfAm (>60 ml/min/1.73 sqM) Est GFR (CKD-EPI)NonAf (>60 ml/min/1.73 sqM) BUN/Creatinine Ratio (12.00-20.00) Ratio Glucose (74-99) mg/dL POC Glucose (mg/dL) 100 H (75-99) mg/dL POC Glu Helpdesk Manager ID [place] Osmolality ([phone]) mosm/kg Calcium (8.4-10.2) mg/dL Magnesium (1.6-2.3) mg/dL Iron (65-175) ug/dL TIBC (228-460) ug/dL % Saturation (15.00-50.00) Ferritin (22.0-322.0) ng/mL Total Bilirubin (0.2-1.3) mg/dL AST (17-59) U/L ALT (4-49) U/L Alkaline Phosphatase (38-126) U/L Troponin I (0.000-0.034) ng/mL NT-Pro-B Natriuret Pep pg/mL Total Protein (6.3-8.2) g/dL Albumin (3.5-5.0) g/dL Globulin (1.6-3.3) g/dL Albumin/Globulin Ratio (1.60-3.17) g/dL Triglycerides (0.0-149.0) mg/dL Cholesterol (0-200) mg/dL LDL Cholesterol, Calc (0.0-131.0) mg/dL VLDL Cholesterol, Calc (5.00-40.00) mg/dL HDL Cholesterol (40.0-60.0) mg/dL Cholesterol/HDL Ratio Urine Osmolality 478 (50-1400) mosm/kg Ur Random Creatinine 68.9 mg/dL Ur Random Urea Nitrogn 458.0 mg/dL Coronavirus (PCR) (Not Detectd) Blood Type Blood Type Recheck Bld Type Recheck Status Antibody Screen Crossmatch Spec Expiration Date Disposition Clinical Impression: Ascites, Anemia, Ventral hernia Disposition: ADMITTED IP TO THIS HOSP
[2020-07-13 17:29] LABS: Anisocytosis Slight; Basophils % (A) 1 %; Eosinophils # (A) 0.1 k/uL (0-0.7); Eosinophils % (A) 2 %; HCT 26.8 % (39.0-53.0); HGB 7.6 gm/dL (13.0-17.5); Hypochromasia Marked; Lymphocytes # (A) 0.9 k/uL (1.0-4.8); Lymphocytes % (A) 12 %; MCH 20.3 pg (25.0-35.0); MCHC 28.2 g/dL (31.0-37.0); MCV 72.2 fL (80.0-100.0); Mean Platelet Volume 7.2; Microcytosis Moderate; Monocytes # (A) 0.6 k/uL (0-1.0); Monocytes % (A) 8 %; Neutrophils # (A) 5.9 k/uL (1.3-7.7); Neutrophils % (A) 77 %; Platelet Count 353 k/uL (150-450); Poikilocytosis Moderate; RBC 3.72 m/uL (4.30-5.90); RDW 18.8 % (11.5-15.5); WBC 7.6 k/uL (3.8-10.6)
[2020-07-13 17:39] LABS: Partial Thromboplastin Time 22.3 sec (22.0-30.0); Prothrombin Time 11.1 sec (9.0-12.0)
[2020-07-13 17:45] LABS: ALT 16 U/L (4-49); AST 28 U/L (17-59); African American GFR (CKD) >90 (>60 ml/min/1.73 sqM); Albumin 2.3 g/dL (3.5-5.0); Alkaline Phosphatase 73 U/L (38-126); Anion Gap 3 mmol/L; Blood Urea Nitrogen 13 mg/dL (9-20); Calcium 7.4 mg/dL (8.4-10.2); Carbon Dioxide 33 mmol/L (22-30); Chloride 92 mmol/L (98-107); Glucose 95 mg/dL (74-99); Magnesium 1.8 mg/dL (1.6-2.3); Non-African American GFR(CKD) >90 (>60 ml/min/1.73 sqM); Sodium 128 mmol/L (137-145); Total Bilirubin 0.2 mg/dL (0.2-1.3); Total Protein 4.8 g/dL (6.3-8.2)
[2020-07-13 17:52] LABS: Potassium 3.3 mmol/L (3.5-5.1)
--- NOTE | 2020-07-13 18:15 | XR ---
EXAMINATION TYPE: XR chest 2V DATE OF EXAM: 07/13/2020 COMPARISON: NONE HISTORY: Short of breath TECHNIQUE: 2 views FINDINGS: There is mild blunting left costophrenic angle. Heart is normal. Lungs are clear of consoli dation. There are no hilar masses. There is no heart failure. There are chest leads. IMPRESSION: There is some pleural reaction and fluid at the left lung base increased compared to old exam. There is clearing of the atelectasis right lung base compared to old exam. Normal heart.
[2020-07-13] MEDS ORDERED: NITROGLYCERIN SL TABS 0.4 MG TAB SUBLINGUAL PRN (18:53)
[2020-07-13] MEDS ORDERED: SODIUM CHLORIDE 0.9% 500 ML 500 ML IV ONE (19:55)
[2020-07-13] MEDS ORDERED: DICYCLOMINE 10 MG/ML 2 ML AMP IM STA (19:58)
[2020-07-13 21:54] VITALS: RESP 16
--- NOTE | 2020-07-14 01:03 | P.HPIM ---
History of Present Illness H&P Date: 07/13/20 The patient is a 39-year-old male with a PMH of portal vein thrombosis, cirrhosis, Crohn's disease, and IV drug abuse (last use with heroin 2 years ago) who presented to emergency room with complaints of chest discomfort and shortness of breath. Patient reports that he has had ascites since his khushboo gnosis of portal vein thrombosis in 2019 and he has undergone one episode of paracentesis. He notes however that his ascites had been stable over the past 6 months. He reports developing positional chest pain over the past 1-2 weeks. He notes that whenever he tries to lean forward or lay down flat, he experiences a pressure-like chest discomfort along with severe shortness of breath. He also notes a diminished exercise tolerance, lower extremity edema over the past few months. He also reports a ventral hernia that he noticed yesterday. He denied nausea, vomiting, diaphoresis, fever, chills, cough, or dizziness. In the emergency room a chest x-ray revealed pleural reaction in fluid at the left lung base. EKG revealed sinus rhythm at 76 bpm with right bundle juand avid block and short MS. Laboratory evaluation revealed hemoglobin 7.6, sodium 128, potassium 3.3, chloride 92, CO2 33, calcium 7.4, and troponin less than 0.012. Review of Systems Pertinent positives and negatives as discussed in HPI, a complete review of systems was performed and all other systems are negative. Past Medical History Past Medical History: Asthma, Deep Vein Thrombosis (DVT), Pulmonary Embolus (PE) Additional Past Medical History / Comment(s): low BP, crohns, diarrhea, blood clot in left side of neck, several blood transfusion while inpatient, cirrhosis, hyponatremia History of Any Multi-Drug Resistant Organisms: None Reported Past Surgical History: Bowel Resection Additional Past Surgical History / Comment(s): colonoscopy, abscess lower left abdomen- drainage, port for TPN/later removed. Past Anesthesia/Blood Transfusion Reactions: No Reported Reaction Past Psychological History: Depression Smoking Status: Current every day smoker Past Alcohol Use History: None Reported Past Drug Use History: None Reported - Past Family History Mother Family Medical History: No Reported History Father Family Medical History: Congestive Heart Failure (CHF) Medications and Allergies Home Medications Medication Instructions Recorded Confirmed Type Spironolactone 50 mg PO DAILY 02/07/19 07/13/20 History Adalimumab [Humira(Cf) Pen] 40 mg SQ Q14D 03/10/20 07/13/20 History Albuterol Inhaler [Ventolin Hfa 2 puff INHALATION RT-Q4H PRN 05/10/20 07/13/20 History Inhaler] Famotidine 40 mg PO DAILY 05/10/20 07/13/20 History metOLazone [Zaroxolyn] 5 mg PO Q48H PRN 05/10/20 07/13/20 History LORazepam [Ativan] 1 mg PO HS PRN 07/13/20 07/13/20 History buprenorphine HCL [Subutex] 8 mg PO TID 07/13/20 07/13/20 History Allergies Allergy/AdvReac Type Severity Reaction Status Date / Time No Known Allergies Allergy Verified 07/13/20 18:04 Physical Exam Vitals: Vital Signs Temp Pulse Resp BP Pulse Ox 07/13/20 19:29 77 18 86/56 98 07/13/20 15:49 98.2 F 95 18 90/53 98 Intake and Output 07/13/20 07/13/20 07/13/20 06:59 14:59 22:59 Other: Weight 63.503 kg General: non toxic, no distress, appears older than stated age, thin Derm: no unusual rashes/lesions no unusual ecchymoses, warm, dry Head: atraumatic, normocephalic, symmetric Eyes: EOMI, no lid lag, anicteric sclera, pupils equal round reactive to light ENT: Nose and ears atraumatic, no thrush, no pharyngeal erythema Neck: No thyromegaly, no cervical lymphadenopathy, trachea midline, supple Mouth: no lip lesion, mucus membranes moist Cardiovascular: S1S2 reg, no murmur, positive posterior tibial pulse bilateral, 2+ bilateral lower extremity pitting edema without calf tenderness or erythema, capillary refill less than 2 seconds Lungs: CTA bilateral, no rhonchi, no rales , no accessory muscle use Abdominal: Distended with a palpable fluid thrill, midline abdominal hernia noted with Valsalva, nontender to palpation, no guarding, no appreciable organom egaly, normal bowel sounds Ext: no gross muscle atrophy, muscle strength 5 out of 5 in all 4 extremities grossly, no contractures, Neuro: CN II-XI grossly intact, light touch intact all 4 extremities, finger to nose within normal limits, Psych: Alert, oriented, appropriate affect Results CBC & Chem 7: 07/13/20 17:22 07/13/20 17:22 Labs: Abnormal Lab Results - Last 24 Hours (Table) 07/13/20 07/13/20 Range/Units 17:22 17:22 RBC 3.72 L (4.30-5.90) m/uL Hgb 7.6 L (13.0-17.5) gm/dL Hct 26.8 L (39.0-53.0) % MCV 72.2 L (80.0-100.0) fL MCH 20.3 L (25.0-35.0) pg MCHC 28.2 L (31.0-37.0) g/dL RDW 18.8 H (11.5-15.5) % Lymphocytes # 0.9 L (1.0-4.8) k/uL Sodium 128 L (137-145) mmol/L Potassium 3.3 L (3.5-5.1) mmol/L Chloride 92 L (98-107) mmol/L Carbon Dioxide 33 H (22-30) mmol/L Calcium 7.4 L (8.4-10.2) mg/dL Total Protein 4.8 L (6.3-8.2) g/dL Albumin 2.3 L (3.5-5.0) g/dL Assessment and Plan Plan: Chest discomfort and SOB, suspected secondary to significant ascites from cirrhosis -IR consult for drainage -Echocardiogram -Cardiac monitoring for now Ventral hernia, reducible without pain or discomfort -Outpatient surgery appoint upon discharge Chronic microcytic anemia, at baseline -Monitor for now Hypokalemia -Replace and monitor Hyponatremia, likely multifactorial with cirrhosis, poor oral intake, and diuretic use -Obtain workup and monitor for now DVT prophylaxis -IPCDs The patient is admitted with an anticipated less than 2 midnight stay for evaluation of chest pain CODE STATUS: Full Code Discussed with: Patient Anticipated discharge date: in am Anticipated discharge place: home A total of 35 minutes was spent on the care of this complex patient more than 50 % of the time was spent in counseling and care coordination.
[2020-07-14] MEDS ORDERED: ALBUTEROL NEBULIZED 2.5 MG/3 ML INHALATION PRN (01:05)
[2020-07-14] MEDS: POTASSIUM CHLORIDE ER 20 MEQ TAB.ER PO SCH ×2 (01:40→03:57)
[2020-07-14 06:48] LABS: Creatinine,Urine Random 68.9 mg/dL
[2020-07-14 07:17] LABS: Glucose,Whole Blood 100 mg/dL (75-99)
[2020-07-14] MEDS ORDERED: LORazepam 1 MG TAB PO PRN (08:48)
[2020-07-14] MEDS ORDERED: SPIRONOLACTONE 25 MG TAB PO SCH (09:00)
[2020-07-14] MEDS ORDERED: ASPIRIN 325 MG TAB PO SCH (09:00)
[2020-07-14] MEDS ORDERED: FAMOTIDINE 20 MG TAB PO SCH (09:00)
[2020-07-14 09:26] LABS: HCT 22.2 % (39.6-50.0); HGB 6.2 g/dL (13.0-17.0); MCH 20.3 pg (27.0-32.0); MCHC 27.9 g/dL (32.0-37.0); MCV 72.5 fL (80.0-97.0); Mean Platelet Volume 9.5 fL (9.5-12.2); Platelet Count 277 X 10*3/uL (140-440); RBC 3.06 X 10*6/uL (4.40-5.60); RDW 19.9 % (11.5-14.5)
[2020-07-14 09:46] LABS: African American GFR (CKD) 158.2 (60.0-200.0); Albumin/Globulin Ratio 0.91 (1.60-3.17); Calcium 7.4 mg/dL (8.7-10.3); Chol/HDL Ratio 2.21; Globulin 2.2 g/dL (1.6-3.3); LDL Cholesterol,Calculated 40.4 mg/dL (0.0-131.0); Magnesium 1.6 mg/dL (1.5-2.4); Non-African American GFR(CKD) 136.5 (60.0-200.0); Potassium 3.7 mmol/L (3.5-5.5); Total Bilirubin 0.1 mg/dL (0.3-1.2); Total Protein 4.2 g/dL (6.2-8.2); VLDL Calculation 11.6 mg/dL (5.00-40.00)
[2020-07-14] MEDS: SUBUTEX 8 MG PO SCH ×2 (10:12→15:38)
[2020-07-14] MEDS ORDERED: SODIUM CHLORIDE 0.9% 1,000 ML IV ONE (10:16)
[2020-07-14] MEDS ORDERED: NICOTINE 21MG/24HR PATCH TRANSDERM SCH (10:30)
--- NOTE | 2020-07-14 10:33 | P.CRDCN ---
History of Present Illness Consult date: 07/14/20 History of present illness: CHIEF COMPLAINT: Chest pain HISTORY OF PRESENT ILLNESS: This is a 39-year-old male with a past medical history significant for portal vein thrombosis, liver cirrhosis, ascites, asthma, nicotine dependence, and former IV drug abuse. Patient does not follow with a chemical cell changer. We have been asked to see the patient in consultation for chest pain. Patient examined this morning at the bedside. When patient was questioned regarding his chest pain, he stated that he did not have chest pain but he was experiencing shortness of breath and that is what prompted him to come to the emergency room. The patient continues to deny chest pain at the time of examination. He states that he feels like he cannot get a full breath and is unable to lie flat because he becomes short of breath. Patient is taking spironolactone and Zaroxolyn on an outpatient basis. He states he is also prescribed Lasix but he does not take it often as it causes him severe leg cramps. DIAGNOSTICS: EKG reveals sinus mechanism with right bundle branch block, unchanged from previous EKG Chest xray some pleural reaction and fluid at the left lung base increased compared to old exam. There is clearing of atelectasis right lung base compared to old exam. Normal heart. Laboratory data: WBC 7.5. Hemoglobin 6.2. Platelet count 277. Sodium 132. Potassium 3.7. BUN 11. Creatinine 0.5. Troponin negative 3. Current home cardiac medications include spironolactone 50 mg daily and Zaroxolyn 5 mg every 48 hours REVIEW OF SYSTEMS: At the time of my exam: CONSTITUTIONAL: Denies fever or chills. HEENT: Denies blurred vision, vision changes, or eye pain. Denies hemoptysis CARDIOVASCULAR: Denies chest pain, PND or palpitations. Reports orthopnea. RESPIRATORY: No shortness of breath. GASTROINTESTINAL: Denies abdominal pain. Denies nausea or vomiting. HEMATOLOGIC: Denies bleeding disorders. GENITOURINARY: Denies any blood in urine. SKIN: Denies pruitis. Denies rash. PHYSICAL EXAM: VITAL SIGNS: Reviewed. GENERAL: Well-developed in no acute distress. HEENT: Head is normocephalic. Pupils are equal, round. Sclerae anicteric. Mucous membranes of the mouth are moist. Neck supple. No JVD or thyromegaly LUNGS: Respirations even and unlabored. Lungs diminished bilaterally. HEART: Regular rate and rhythm. S1 and S2 heard. ABDOMEN: Distended. Ascites present. EXTREMITIES: Normal range of motion. No clubbing or cyanosis. Peripheral pulses intact. 2-3+ lower extremity edema NEUROLOGIC: Awake and alert. Oriented x 3. ASSESSMENT: Shortness of breath Ascites History of portal vein thrombosis History of liver cirrhosis Nicotine dependence Former IV drug abuse PLAN: Patient denies chest pain during examination and denies having chest pain prior to coming to the hospital Patient's shortness of breath likely secondary to ascites Interventional radiology consulted for paracentesis Obtain 2-D echo to assess cardiac structure and function Further recommendations pending patient's course Nurse practitioner note has been reviewed by physician. Signing provider agrees with the documented findings, assessment, and plan of care. Past Medical History Past Medical History: Asthma, Deep Vein Thrombosis (DVT), Pulmonary Embolus (PE) Additional Past Medical History / Comment(s): low BP, crohns, diarrhea, blood clot in left side of neck, several blood transfusion while inpatient, cirrhosis, hyponatremia History of Any Multi-Drug Resistant Organisms: None Reported Past Surgical History: Bowel Resection Additional Past Surgical History / Comment(s): colonoscopy, abscess lower left abdomen- drainage, port for TPN/later removed. Past Anesthesia/Blood Transfusion Reactions: No Reported Reaction Past Psychological History: Depression Smoking Status: Current every day smoker Past Alcohol Use History: None Reported Past Drug Use History: None Reported - Past Family History Mother Family Medical History: No Reported History Father Family Medical History: Congestive Heart Failure (CHF) Medications and Allergies Home Medications Medication Instructions Recorded Confirmed Type Spironolactone 50 mg PO DAILY 02/07/19 07/13/20 History Adalimumab [Humira(Cf) Pen] 40 mg SQ Q14D 03/10/20 07/13/20 History Albuterol Inhaler [Ventolin Hfa 2 puff INHALATION RT-Q4H PRN 05/10/20 07/13/20 History Inhaler] Famotidine 40 mg PO DAILY 05/10/20 07/13/20 History metOLazone [Zaroxolyn] 5 mg PO Q48H PRN 05/10/20 07/13/20 History LORazepam [Ativan] 1 mg PO HS PRN 03/01/21 03/01/21 History buprenorphine HCL [Subutex] 8 mg PO TID 07/13/20 07/13/20 History Allergies Allergy/AdvReac Type Severity Reaction Status Date / Time No Known Allergies Allergy Verified 07/13/20 18:04 Physical Exam Vitals: Vital Signs Temp Pulse Pulse Resp BP BP Pulse Ox 07/14/20 08:00 81 16 07/14/20 07:38 96 07/14/20 07:00 98.1 F 81 16 91/47 95 07/14/20 01:42 97.7 F 74 16 92/54 94 L 07/13/20 21:53 97.8 F 70 16 97/58 98 07/13/20 20:58 80 18 94/60 98 07/13/20 19:29 77 18 86/56 98 07/13/20 15:49 98.2 F 95 18 90/53 98 Intake and Output 07/13/20 07/14/20 07/14/20 22:59 06:59 14:59 Intake Total 500 Balance 500 Intake: Amount of Fluid Infused ( 500 ml) Other: # Voids 1 1 Weight 63.503 kg Results 07/14/20 04:41 07/14/20 04:41 Cardiac Enzymes 07/13/20 07/13/20 07/13/20 Range/Units 17:22 17:22 20:25 AST 28 (17-59) U/L Troponin I <0.012 <0.012 (0.000-0.034) ng/mL 07/13/20 07/14/20 Range/Units 23:25 04:41 AST 19 (17-59) U/L Troponin I <0.012 (0.000-0.034) ng/mL Coagulation 07/13/20 Range/Units 17:22 PT 11.1 (9.0-12.0) sec APTT 22.3 (22.0-30.0) sec Lipids 07/14/20 Range/Units 04:41 Triglycerides 58.0 (0.0-149.0) mg/dL Cholesterol 95 (0-200) mg/dL HDL Cholesterol 43.0 (40.0-60.0) mg/dL Cholesterol/HDL Ratio 2.21 CBC 07/13/20 07/14/20 Range/Units 17:22 04:41 WBC 7.6 7.50 (3.8-10.6) k/uL RBC 3.72 L 3.06 L (4.30-5.90) m/uL Hgb 7.6 L 6.2 L* (13.0-17.5) gm/dL Hct 26.8 L 22.2 L (39.0-53.0) % Plt Count 353 277 (150-450) k/uL Comprehensive Metabolic Panel 07/13/20 07/14/20 Range/Units 17:22 04:41 Sodium 128 L 132 L (137-145) mmol/L Potassium 3.3 L 3.7 (3.5-5.1) mmol/L Chloride 92 L 99 (98-107) mmol/L Carbon Dioxide 33 H 31.0 (22-30) mmol/L BUN 13 11.0 (9-20) mg/dL Creatinine 0.81 0.5 L (0.66-1.25) mg/dL Glucose 95 83 (74-99) mg/dL Calcium 7.4 L 7.4 L (8.4-10.2) mg/dL AST 28 19 (17-59) U/L ALT 16 17 (4-49) U/L Alkaline Phosphatase 73 59 (38-126) U/L Total Protein 4.8 L 4.2 L (6.3-8.2) g/dL Albumin 2.3 L 2.00 L (3.5-5.0) g/dL Current Medications Generic Name Dose Route Start Last Admin Trade Name Freq PRN Reason Stop Dose Admin Albuterol Sulfate 2.5 mg 07/14/20 01:05 Albuterol Nebulized 2.5 Mg/3 Ml INHALATION RT-Q4H PRN Shortness Of Breath Famotidine 40 mg 07/14/20 09:00 Famotidine 20 Mg Tab PO DAILY LISA Sodium Chloride 1,000 mls @ 999 mls/hr 07/14/20 10:16 Saline 0.9% IV 07/14/20 11:16 .Q1H1M ONE Lorazepam 1 mg 07/14/20 08:48 Lorazepam 1 Mg Tab PO HS PRN Insomnia Nicotine 1 patch 07/14/20 10:30 Nicotine 21mg/24hr Patch TRANSDERM DAILY LSIA Nitroglycerin 0.4 mg 07/13/20 18:53 Nitroglycerin Sl Tabs 0.4 Mg Tab SUBLINGUAL Q5M PRN Chest Pain Subutex ( 8 mg 07/14/20 09:00 07/14/20 10:12 Buprenorphine Hcl) 8 PO Not Given Mg Tab TID LISA Spironolactone 50 mg 07/14/20 09:00 07/14/20 10:11 Spironolactone 25 Mg Tab PO Not Given DAILY LISA Intake and Output 07/13/20 07/14/20 07/14/20 22:59 06:59 14:59 Intake Total 500 Balance 500 Intake: Amount of Fluid Infused ( 500 ml) Other: # Voids 1 1 Weight 63.503 kg 07/14/20 04:41 07/14/20 04:41
[2020-07-14 11:11] LABS: Glucose,Whole Blood 95 mg/dL (75-99)
--- NOTE | 2020-07-14 11:34 | ECHOF ---
Referral Reason:chest pain MEASUREMENTS -------- HEIGHT: 170.2 cm WEIGHT: 63.5 kg BP: 92/54 RVIDd: 3.3 cm (< 3.3) IVSd: 0.8 cm (0.6 - 1.1) LVIDd: 4.9 cm (3.9 - 5.3) LVPWd: 1.0 cm (0.6 - 1.1) IVSs: 1.0 cm LVIDs: 3.4 cm LVPWs: 1.3 cm LAESV Index (A-L): 17.59 ml/m Ao Diam: 3.4 cm (2.0 - 3.7) AV Cusp: 2.4 cm (1.5 - 2.6) MV EXCURSION: 23.423 mm (> 18.000) MV EF SLOPE: 162 mm/s (70 - 150) EPSS: 0.3 cm MV E Bob: 0.78 m/s MV DecT: 169 ms MV A Bob: 0.60 m/s MV E/A Ratio: 1.30 RAP: 5.00 mmHg RVSP: 22.38 mmHg FINDINGS -------- Sinus rhythm. This was a technically adequate study. The left ventricular size is normal. Left ventricular wall thickness is normal. Overall left vent ricular systolic function is normal with, an EF between 55 - 60 %. The right ventricle is mildly enlarged. Normal LA size by volume 22+/-6 ml/m2. The right atrial size is normal. Interatrial and interventricular septum intact. The aortic valve is trileaflet and appears structurally normal. There is no evidence of aortic regu rgitation. There is no evidence of aortic stenosis. No mitral regurgitation. Mild tricuspid regurgitation present. There is no evidence of pulmonary hypertension. The right v entricular systolic pressure, as measured by Doppler, is 22.38mmHg. There is no pulmonic regurgitation present. The aortic root size is normal. Normal inferior vena cava with normal inspiratory collapse consistent with estimated right atrial pre ssure of 5 mmHg. There is no pericardial effusion. CONCLUSIONS -------- 1. The left ventricular size is normal. 2. Left ventricular wall thickness is normal. 3. Overall left ventricular systolic function is normal with, an EF between 55 - 60 %. 4. The right ventricle is mildly enlarged. 5. Mild tricuspid regurgitation present. MOCK UP MAKER: Chante Calhoun RDCS
--- NOTE | 2020-07-14 14:34 | US ---
EXAMINATION TYPE: US abdomen limited DATE OF EXAM: 07/14/2020 COMPARISON: NONE CLINICAL HISTORY: 39-year-old male assess for fluid pocket for possible paracentesis. TECHNIQUE: Multiple sonographic images of the 4 abdominal quadrants for assessment of ascites fluid. FINDINGS: Manager Residential notes: Small amount of fluid noted within the lower quadrants and left upper quadrant. La rgest pocket measuring 8 cm. IMPRESSION: Overall small amount of ascites fluid.
--- NOTE | 2020-07-14 15:15 | P.DS ---
Providers Date of admission: 07/14/20 08:53 Expected date of discharge: 07/14/20 Attending physician: Jay Randle MD Consults: 07/14/20 01:02 Consult Physician Urgent Consulting Provider: Stefania Sutton Consult Reason/Comments: Ascites, cirrhosis Do you want consulting provider notified?: Yes 07/14/20 11:21 Consult Physician Routine Consulting Provider: Gab Lennon Consult Reason/Comments: chronic anemia, known to you, Hx DVT, portal vein thrombosis,PE Do you want consulting provider notified?: Yes Primary care physician: Chuck Talbot MD Hospital Course: Discharge Diagnosis: Symptomatic anemia, severe iron deficiency s/p 1 unit pRBC Recurrent ascites status post portal vein thrombosis Crohn's disease maintained on Humira Hyponatremia likely secondary to decreased fluid volume Hypokalemia Hospital Course: Patient is a 39-year-old male past medical history of Crohn's disease currently on Humira and in remission, portal vein thrombosis and history of recurrent ascites maintained on Zaroxolyn and spironolactone, history of IVDA in remission and well-controlled on Subutex who presented to the emergency department with complaints of shortness of breath progressive over the last 1-2 weeks associated with some tightness in his chest. In the ER he underwent an extensive evaluation. He was found to have severe microcytic anemia with a hemoglobin of 7.4. His potassium was slightly low at 3.3 and sodium low at 128. Initial troponin was negative and EKG revealed no signs of ischemia. He was admitted for chest pain on and possible need for paracentesis. Cardiology was consulted and he underwent an echocardiogram and was cleared from a cardiac standpoint. He was seen by GI. It came to light that he has been struggling with his anemia for over the last 6 months. His repeat hemoglobin on the morning of 07/14 came back at 6.2. He adamantly denied any bleeding in his stool or vomiting up blood. He has undergone a EGD and colonoscopy within the last [address] Parmar. At this point in time he does not want have a repeat inpatient EGD or colonoscopy. He has been following with Dr. Lennon and receiving frequent iron infusion as well as CBCs. Patient will receive 1 unit of packed red blood cells and be discharged home. He will resume all his medications as taking them prior to hospitalization. He has appointments with Dr. Parmar, Dr. Talbot, and Dr. Lennon next week. He has a standing appointment for blood work. Echocardiogram: Ejection fraction 55-60%, mild tricuspid regurgitation, mild right ventricular enlargement Chest x-ray: Pleural reaction and some fluid at the left base Improve faster than anticipated Patient seen and examined at bedside. He is upset and doesn't want to be in the hospital anymore. He states his breathing is better and he is no longer having any chest discomfort. He denies any nausea or vomiting. He denies any bloody emesis. He is not having any blood in his bowel movements. He denies any increased abdominal pain. He does not want to have an EGD or colonoscopy during this hospital stay but is willing to have one on outpatient basis. Vital signs reviewed and stable. General: non toxic, no distress, appears at stated age, pale, cachectic Derm: warm, dry Head: atraumatic, normocephalic, symmetric Eyes: EOMI, no lid lag, anicteric sclera Mouth: no lip lesion, mucus membranes moist Cardiovascular: S1S2 reg, no murmur, positive posterior tibial pulse bilateral, Lungs: CTA bilateral, no rhonchi, no rales , no accessory muscle use Abdominal: soft, nontender to palpation, no guarding, no appreciable organomegaly Ext: no gross muscle atrophy, no edema, no contractures Neuro: CN II-XI grossly intact, no focal neuro deficits Psych: Alert, oriented, appropriate affect A total of 35 minutes of time were spent preparing this complex discharge summary . Plan - Discharge Summary New Discharge Prescriptions: Continue Spironolactone 50 mg PO DAILY Adalimumab [Humira(Cf) Pen] 40 mg SQ Q14D Albuterol Inhaler [Ventolin Hfa Inhaler] 2 puff INHALATION RT-Q4H PRN PRN Reason: Shortness Of Breath Famotidine 40 mg PO DAILY metOLazone [Zaroxolyn] 5 mg PO Q48H PRN PRN Reason: Edema buprenorphine HCL [Subutex] 8 mg PO TID LORazepam [Ativan] 1 mg PO HS PRN PRN Reason: Insomnia Discharge Medication List Spironolactone 50 mg PO DAILY 02/07/19 [History] Adalimumab [Humira(Cf) Pen] 40 mg SQ Q14D 03/10/20 [History] Albuterol Inhaler [Ventolin Hfa Inhaler] 2 puff INHALATION RT-Q4H PRN 05/10/20 [History] Famotidine 40 mg PO DAILY 05/10/20 [History] metOLazone [Zaroxolyn] 5 mg PO Q48H PRN 05/10/20 [History] LORazepam [Ativan] 1 mg PO HS PRN 07/13/20 [History] buprenorphine HCL [Subutex] 8 mg PO TID 07/13/20 [History] Follow up Appointment(s)/Referral(s): Chuck aTlbot MD [Primary Care Provider] - 1-2 days Gab Lennon MD [STAFF PHYSICIAN] - 1 Week Dipak Parmar MD [STAFF PHYSICIAN] - 1 Week Activity/Diet/Wound Care/Special Instructions: Activity: as tolerated Diet: regular Special Instructions: monitor stools for signs of bleeding. Discharge Disposition: HOME SELF-CARE
[2020-07-14 15:48] VITALS: BP 92/57; PULSE 78; TEMP 98.2
--- NOTE | 2020-07-14 16:06 | P.CONS ---
History of Present Illness - Reason for Consult Consult date: 07/14/20 Ascites Requesting physician: Jolanta Mayen - Chief Complaint Shortness of breath - History of Present Illness The patient is a 39-year-old male with a past medical history of of portal vein thrombosis, cirrhosis of the liver, Crohn's disease, and IV drug abuse (last use with heroin 2 years ago) who presented to emergency room with complaints of chest discomfort and shortness of breath. The patient was diagnosed with Crohn's disease at age 14, he follows with Dr. Parmar in the outpatient setting. He has been on Humira for the last 4-5 months with well control of his Crohn's disease. He denies any bleeding from the rectum, or blood in his stool. He states he has approximately 2 bowel movements daily. He has a history of ascites in 2019, where he had a paracentesis at that time. He denies any prior history of cirrhosis of the liver or alcohol abuse. He was noted on a CT of the abdomen in 2019 that there was hepatocellular disease, consistent with hepatic steatosis. He notes however that his ascites had been stable over the past 6 months. He is maintained on spironolactone 50 mg daily, and is supposed to be on Lasix 40 mg twice a day, however has not been taking his Lasix due to cramping in his hands and feet. He states he has noted some increase in abdominal distention over the last couple weeks. He also states he was having some shortness of breath and chest pain and therefore came into the emergency room for further evaluation. His admission WBC was 7.6 hemoglobin 7.6, hematocrit 26.8, platelets 353, INR 1.0. Total bilirubin 0.2, alkaline phosphatase 73, AST 28, ALT 16. He had a noted drop in his hemoglobin this morning to 6.2, he is status post 1 unit PRBC transfusion. He has been tested several times in the past for hepatitis A, B, and C, all which have been reported as negative. The patient denies any abdominal pain, nausea, or vomiting at this time. He denies any blood in his stool or rectum. Review of Systems Constitutional: Denies as per HPI, Denies anorexia, Denies chills, Denies chronic headaches, Denies chronic pain, Denies daytime sleepiness, Denies fatigue, Denies fever, Denies lethargy, Denies malaise, Denies night sweats, Denies poor appetite, Denies sweats, Denies weakness, Denies weight gain, Denies weight loss Cardiovascular: Reports shortness of breath Respiratory: Denies as per HPI, Denies congestion, Denies cough, Denies cough with sputum, Denies dyspnea, Denies excessive sputum, Denies hemoptysis, Denies home oxygen, Denies pain, Denies pain on inspiration, Denies pleurisy, Denies respiratory infections, Denies sleep apnea, Denies snoring, Denies wheezing Gastrointestinal: Reports bloating Genitourinary: Denies as per HPI, Denies decreased libido, Denies difficulties fathering child, Denies discharge, Denies dysuria, Denies erectile dysfunction, Denies flank pain, Denies genital pain, Denies genital sores, Denies hematuria, Denies impotence, Denies incontinence, Denies kidney stones, Denies nocturia, Denies polyuria, Denies testicular lump, Denies testicular pain, Denies urinary frequency, Denies urinary hesitancy, Denies urinary retention Neurological: Denies as per HPI, Denies aphasia, Denies ataxia, Denies balance difficulties, Denies burning pain, Denies change in mentation, Denies change in smell/taste, Denies change in speech, Denies confusion, Denies convulsions, Denies double vision, Denies gait dysfunction, Denies head injury, Denies headaches, Denies hearing difficulties, Denies lack of coordination, Denies loss of vision, Denies memory loss, Denies migraines, Denies motor disturbance, Denies numbness, Denies paralysis, Denies paresthesias, Denies seizures, Denies sensory deficit, Denies spasticity, Denies syncope, Denies tic, Denies tingling, Denies transient paralysis, Denies tremors, Denies vertigo, Denies weakness, Denies visual changes Past Medical History Past Medical History: Asthma, Deep Vein Thrombosis (DVT), Pulmonary Embolus (PE) Additional Past Medical History / Comment(s): low BP, crohns, diarrhea, blood clot in left side of neck, several blood transfusion while inpatient, cirrhosis, hyponatremia History of Any Multi-Drug Resistant Organisms: None Reported Past Surgical History: Bowel Resection Additional Past Surgical History / Comment(s): colonoscopy, abscess lower left abdomen- drainage, port for TPN/later removed. Past Anesthesia/Blood Transfusion Reactions: No Reported Reaction Past Psychological History: Depression Smoking Status: Current every day smoker Past Alcohol Use History: None Reported Past Drug Use History: None Reported - Past Family History Mother Family Medical History: No Reported History Father Family Medical History: Congestive Heart Failure (CHF) Medications and Allergies Home Medications Medication Instructions Recorded Confirmed Type Spironolactone 50 mg PO DAILY 02/07/19 07/13/20 History Adalimumab [Humira(Cf) Pen] 40 mg SQ Q14D 03/10/20 07/13/20 History Albuterol Inhaler [Ventolin Hfa 2 puff INHALATION RT-Q4H PRN 05/10/20 07/13/20 History Inhaler] Famotidine 40 mg PO DAILY 05/10/20 07/13/20 History metOLazone [Zaroxolyn] 5 mg PO Q48H PRN 05/10/20 07/13/20 History LORazepam [Ativan] 1 mg PO HS PRN 07/13/20 07/13/20 History buprenorphine HCL [Subutex] 8 mg PO TID 07/13/20 07/13/20 History Allergies Allergy/AdvReac Type Severity Reaction Status Date / Time No Known Allergies Allergy Verified 07/13/20 18:04 Physical Exam Vitals: Vital Signs Temp Pulse Pulse Resp BP BP Pulse Ox 07/14/20 15:00 98.2 F 78 16 92/57 97 07/14/20 14:00 81 16 07/14/20 13:55 98.0 F 75 16 99/55 07/14/20 12:55 98.2 F 77 16 91/55 07/14/20 12:25 97.9 F 78 16 133/67 96 07/14/20 12:15 98 F 72 16 111/66 96 07/14/20 12:05 97.8 F 77 16 94/54 96 07/14/20 08:00 81 16 07/14/20 07:38 96 07/14/20 07:00 98.1 F 81 16 91/47 95 07/14/20 01:42 97.7 F 74 16 92/54 94 L 07/13/20 21:53 97.8 F 70 16 97/58 98 07/13/20 20:58 80 18 94/60 98 07/13/20 19:29 77 18 86/56 98 Intake and Output 07/14/20 07/14/20 07/14/20 06:59 14:59 22:59 Intake Total 310 Balance 310 Intake: Blood Product 310 Rc As-1 Unit 310 [id number] Other: # Voids 1 1 General appearance: The patient is alert, oriented, appears in no acute distress. HET: Head is normocephalic and atraumatic. Conjunctiva pink. Sclera anicteric. Neck: Supple without lymphadenopathy. Abdomen: Soft, nontender, mildy distended with bowel sounds. No guarding or r igidity. Extremities: Normal skin color and turgor. No pedal edema Skin: No rashes, no jaundice Neurological: No focal deficits. Alert and oriented 3. Results CBC & Chem 7: 07/14/20 04:41 07/14/20 04:41 Labs: Abnormal Lab Results - Last 24 Hours (Table) 07/13/20 07/13/20 07/13/20 Range/Units 17:20 17:22 17:22 RBC 3.72 L (4.30-5.90) m/uL Hgb 7.6 L (13.0-17.5) gm/dL Hct 26.8 L (39.0-53.0) % MCV 72.2 L (80.0-100.0) fL MCH 20.3 L (25.0-35.0) pg MCHC 28.2 L (31.0-37.0) g/dL RDW 18.8 H (11.5-15.5) % Lymphocytes # 0.9 L (1.0-4.8) k/uL Sodium 128 L (137-145) mmol/L Potassium 3.3 L (3.5-5.1) mmol/L Chloride 92 L (98-107) mmol/L Carbon Dioxide 33 H (22-30) mmol/L Anion Gap (4.00-12.00) mmol/L Creatinine (0.6-1.5) mg/dL BUN/Creatinine Ratio (12.00-20.00) Ratio POC Glucose (mg/dL) (75-99) mg/dL Osmolality (280-301) mosm/kg Calcium 7.4 L (8.4-10.2) mg/dL Total Bilirubin (0.3-1.2) mg/dL Total Protein 4.8 L (6.3-8.2) g/dL Albumin 2.3 L (3.5-5.0) g/dL Albumin/Globulin Ratio (1.60-3.17) g/dL Crossmatch See Detail 07/14/20 07/14/20 07/14/20 Range/Units 04:41 04:41 07:17 RBC 3.06 L (4.30-5.90) m/uL Hgb 6.2 L* (13.0-17.5) gm/dL Hct 22.2 L (39.0-53.0) % MCV 72.5 L (80.0-100.0) fL MCH 20.3 L (25.0-35.0) pg MCHC 27.9 L (31.0-37.0) g/dL RDW 19.9 H (11.5-15.5) % Lymphocytes # (1.0-4.8) k/uL Sodium 132 L (137-145) mmol/L Potassium (3.5-5.1) mmol/L Chloride (98-107) mmol/L Carbon Dioxide (22-30) mmol/L Anion Gap 2.00 L (4.00-12.00) mmol/L Creatinine 0.5 L (0.6-1.5) mg/dL BUN/Creatinine Ratio 22.00 H (12.00-20.00) Ratio POC Glucose (mg/dL) 100 H (75-99) mg/dL Osmolality 270 L (280-301) mosm/kg Calcium 7.4 L (8.4-10.2) mg/dL Total Bilirubin 0.1 L (0.3-1.2) mg/dL Total Protein 4.2 L (6.3-8.2) g/dL Albumin 2.00 L (3.5-5.0) g/dL Albumin/Globulin Ratio 0.91 L (1.60-3.17) g/dL Crossmatch Assessment and Plan (1) Ascites Narrative/Plan: This is a 39-year-old male patient is a history of Crohn's disease being followed by Dr. Parmar currently on Humira and well-controlled. He presented to the emergency room for shortness of breath and chest pain. He stated he started noting abdominal distention approximatley 1-2 weeks ago. His first diagnosed with ascites with likely cirrhosis of the liver in November 2018. At that time he underwent a paracentesis. He is currently taking spironolactone 50 mg daily, is prescribed Lasix 40 mg twice a day, however patient is not taking due to side effects of cramping in his hands and feet. The patient denies any abdominal pain, nausea, or vomiting at this time. He denies any blood in his stool or rectum. He was scheduled for a ultrasound with paracentesis, abdominal ultrasound shows overall small amount of ascites. Current Visit: Yes Status: Acute Priority: High Code(s): R18.8 - OTHER ASCITES SNOMED Code(s): 949445291 (2) Anemia Narrative/Plan: Patient has a history of chronic anemia, he follows with hematology and get outpatient IV iron and PRBC transfusion intermittently. Patient to drop in his hemoglobin today to 6.2, 1 unit PRBC transfusion was ordered. Current Visit: No Status: Acute Priority: High Code(s): D64.9 - ANEMIA, UNSPECIFIED SNOMED Code(s): 631206435 (3) Crohns disease Narrative/Plan: Patient is currently maintained on Humira, and is well controlled. Follows with and has appointment next week. Current Visit: No Status: Acute Code(s): K50.90 - CROHN'S DISEASE, UNSPECIFIED, WITHOUT COMPLICATIONS SNOMED Code(s): 53133061 Plan: 1. Supportive care 2. Agree with 1 unit of PRBC 3. Will add Lasix 40 mg daily and increase spironolactone to 100 mg daily 4. Low-sodium diet 5. Ultrasound paracentesis ordered 6. Patient may be discharged home from a gastroenterology standpoint with follow-up with Dr. Ramirez is scheduled next week 7. No plans for any endoscopic evaluation at this time Thank You for this consultation we will follow with you closely Dr. Arleth Sutton I agree with the dictator's note, documented as a scribe by Apoorva Blunt.
[2020-07-14 18:09] LABS: % Iron Saturation 2.63 (15.00-50.00); Ferritin 3.7 ng/mL (22.0-322.0)
[2020-07-15] MEDS ORDERED: SPIRONOLACTONE 25 MG TAB PO SCH (09:00)
[2020-07-15] MEDS ORDERED: FUROSEMIDE 40 MG TAB PO SCH (09:00)
== END 2020-07-14 16:36 | disposition home or self-care (01) | DRG 433 ==
LOC: EC 15:36 → 6NMEDSUR 18:55 → OBSVTOIN 07-14 08:53
PROVIDERS: ADMIT Internal Medicine; ATTEND Internal Medicine
PROC: 30233N1 Transfusion of Nonautologous Red Blood Cells into Peripheral Vein, Percutaneous Approach (ICD-10-PCS; principal; 2020-07-14)
DX: K74.60 Unspecified cirrhosis of liver (principal); E87.1 Hypo-osmolality and hyponatremia; J98.11 Atelectasis; K50.90 Crohn's disease, unspecified, without complications; R18.8 Other ascites; D50.9 Iron deficiency anemia, unspecified; E87.6 Hypokalemia; F17.210 Nicotine dependence, cigarettes, uncomplicated; F19.11 Other psychoactive substance abuse, in remission; F32.9 Major depressive disorder, single episode, unspecified; I45.10 Unspecified right bundle-branch block; J45.909 Unspecified asthma, uncomplicated; K43.9 Ventral hernia without obstruction or gangrene; K76.0 Fatty (change of) liver, not elsewhere classified; T50.1X6A Underdosing of loop [high-ceiling] diuretics, initial encounter; Z86.711 Personal history of pulmonary embolism; Z86.718 Personal history of other venous thrombosis and embolism; Z82.49 Family history of ischemic heart disease and other diseases of the circulatory system; Z79.899 Other long term (current) drug therapy; I50.9 Heart failure, unspecified; I07.1 Rheumatic tricuspid insufficiency; Z20.822 Contact with and (suspected) exposure to COVID-19; F11.11 Opioid abuse, in remission
CPT/HCPCS: 36415; 71046; 76705; 80053; 80061; 82570; 82728; 83540; 83550; 83735; 83880; 83930; 83935; 84484; 84540; 85025; 85027; 85610; 85730; 86850; 86900; 86901; 86920; 87635; 93005; 93306; 94760; 96372; 99285

== ENCOUNTER → 2020-08-31 | Outpatient (CLI) | payer BC, OTHER ==
--- NOTE | 2020-08-31 09:45 | MR ---
MR abdomen with and without contrast HISTORY: Crohn's disease, portal vein thrombosis, abdominal distention Multiplanar multisequence and postcontrast images obtained through the abdomen following 6.5 cc Gadav ist IV Correlation to ultrasound dated 07/14/2020, prior MRCP 12/10/2019 There is artifact present on the exam. There is heterogeneous signal intensity involving the liver pe ripherally. Hepatic veins are patent. The portal vein shows thrombus centrally, there is also thrombu s extending into the right lobe with thrombus nonocclusive, axial image 97 postcontrast images. There are varices present at the head of the pancreas level, retroperitoneum and in the frederick hepatus larry on. There is ascites present. Lung bases show no pleural effusion, there are basilar atelectatic changes. Spleen is not enlarged. N o evident pancreatic mass. Loops of small bowel show some wall thickening. Aorta shows normal caliber . Kidneys enhance and excrete contrast as expected. There is some mesenteric adenopathy. Adrenal glan ds are within normal limits. IMPRESSION: Nonocclusive portal thrombosis. Ascites. Additional findings above.
== END | disposition home or self-care (01) ==
LOC: RADMRIMAIN 06:19
PROVIDERS: ATTEND Internal Medicine Hematology & Oncology
DX: K31.89 Other diseases of stomach and duodenum (principal); I81 Portal vein thrombosis; R18.8 Other ascites; R59.0 Localized enlarged lymph nodes
CPT/HCPCS: 74183; A9585

== ENCOUNTER → 2021-01-01 | Outpatient (CLI) | payer BC, OTHER ==
[2021-01-02 13:18] LABS: Hepatitis A Antibody IgM Non-Reactive (Non-Reactive); Hepatitis B Core IgM Non-Reactive (Non-Reactive); Hepatitis B Surface Antigen Non-Reactive (Non-Reactive); Hepatitis C IgG Antibody Non-Reactive (Non-Reactive)
== END | disposition home or self-care (01) ==
LOC: LABWHC1 15:18
PROVIDERS: ATTEND Student in an Organized Health Care Education/Training Program
DX: K50.012 Crohn's disease of small intestine with intestinal obstruction (principal)
CPT/HCPCS: 36415; 80074; 86480; 86704

== ENCOUNTER → 2021-01-11 | Outpatient (CLI) | payer BC, OTHER ==
[2021-01-11 13:07] LABS: INR 1.5 (<1.2); Partial Thromboplastin Time 26.6 sec (22.0-30.0); Prothrombin Time 15.2 sec (9.0-12.0)
[2021-01-11 18:44] LABS: HCT 32.3 % (39.6-50.0); HGB 9.1 g/dL (13.0-17.0); MCH 19.9 pg (27.0-32.0); MCHC 28.2 g/dL (32.0-37.0); MCV 70.5 fL (80.0-97.0); Mean Platelet Volume 8.5 fL (9.5-12.2); Platelet Count 394 X 10*3/uL (140-440); RBC 4.58 X 10*6/uL (4.40-5.60); RDW 20.8 % (11.5-14.5); WBC 7.42 X 10*3/uL (4.50-10.00)
[2021-01-11 19:20] LABS: Basophils # (A) 0.04 X 10*3/uL (0.00-0.10); Basophils % (A) 0.5 %; Eosinophils # (A) 0.01 X 10*3/uL (0.04-0.35); Eosinophils % (A) 0.1 %; Hypochromasia (M) 2+; Lymphocytes # (A) 0.88 X 10*3/uL (0.90-5.00); Lymphocytes % (A) 11.9 %; Microcytosis (M) 2+; Monocytes # (A) 0.56 X 10*3/uL (0.20-1.00); Monocytes % (A) 7.5 %; Neutrophils # (A) 5.89 X 10*3/uL (1.80-7.70); Neutrophils % (A) 79.5 %; Target Cells 2+
[2021-01-11 21:34] LABS: ALT 19 U/L (10-49); AST 14 U/L (14-35); African American GFR (CKD) 145.8 (60.0-200.0); Albumin/Globulin Ratio 0.68 (1.60-3.17); Alkaline Phosphatase 129 U/L (41-126); BUN/Creat Ratio 26.67 Ratio (12.00-20.00); Bilirubin, Conjugated <0.20 mg/dL (0.20-0.40); Calcium 7.4 mg/dL (8.7-10.3); Carbon Dioxide 28.9 mmol/L (21.6-31.8); Chloride 98 mmol/L (96-109); Globulin 3.1 g/dL (1.6-3.3); Glucose 104 mg/dL (70-110); Non-African American GFR(CKD) 125.8 (60.0-200.0); Potassium 4.1 mmol/L (3.5-5.5); Sodium 133 mmol/L (135-145); Total Bilirubin 0.2 mg/dL (0.2-1.2); Total Protein 5.2 g/dL (6.2-8.2)
== END | disposition home or self-care (01) ==
LOC: LABWHC1 12:09
PROVIDERS: ATTEND Radiology Vascular & Interventional Radiology
DX: Z01.812 Encounter for preprocedural laboratory examination (principal); Z20.822 Contact with and (suspected) exposure to COVID-19; Z95.828 Presence of other vascular implants and grafts
CPT/HCPCS: 80048; 80076; 85025; 85610; 85730; 36415; U0003; C9803